=== PATIENT | female | born 1985 | race Caucasian/White ===

== ENCOUNTER 2019-04-07 07:36 | Outpatient (CLI) | payer OTHER, SELFPAY ==
--- NOTE | ~2019-04-07 | US_ITS ---
EXAMINATION: US right upper quadrant EXAM DATE: 04/07/2019 08:27 INDICATION: Right quadrant abdominal pain, nausea. TECHNIQUE: Multiple grayscale and Doppler images of the abdomen right upper quadrant were obtained (b y a technologist who performed the scan) and subsequently reviewed. There is no prior study for valery munoz. FINDINGS: The pancreatic head and body are normal in appearance. The pancreatic tail is not visualized. The l iver has normal echogenicity and contour. There are no focal liver lesions identified. There is no evidence of intrahepatic biliary duct dilation. Portal venous flow was seen in the hepatopedal, nor mal direction and has normal Doppler waveform. No right-sided hydronephrosis. Common bile duct measures 3 mm, which is normal. The gallbladder wall is normal in thickness, with ex pected amount of distention. No sonographic evidence of pericholecystic fluid. There is no cholelit hiases. Technologist performing exam reports patient did not demonstrate sonographic Ko's sign. Please note that this sign is less reliable in patients who have received pain medication. IMPRESSION: 1. Unremarkable abdominal ultrasound exam. Reviewed, dictated and finalized at location A. RIBUTION SYSTEM OPERATOR
== END 2019-04-07 07:37 ==
PROVIDERS: Visit Provider Nurse Practitioner
DX: R10.11 Right upper quadrant pain (principal)
CPT/HCPCS: 76705

== ENCOUNTER 2020-10-01 17:33 | Outpatient (CLI) | payer OTHER, SELFPAY ==
--- NOTE | ~2020-10-01 | XR_ITS ---
EXAMINATION: XR lumbar spine 2-3V DATE: 10/01/2020 17:54 INDICATION: Mid to low back pain. TECHNIQUE: 3 views of lumbar spine were obtained. COMPARISON: None. FINDINGS: There is 12 degrees levoscoliosis from T11 to L3 by the Ruby method. There is 3 mm retrolis thesis of L2 on L3 and L3 on L4. Vertebral body heights are normal. There is mildly decreased disc he ight at L1-L2, L2-L3, and L3-L4. There is multilevel mild facet joint osteoarthritis. IMPRESSION: 1. Mild lumbar spondylosis. 2. Thoracolumbar levoscoliosis. Reviewed, dictated and finalized at location A.
--- NOTE | ~2020-10-01 | XR_ITS ---
EXAMINATION: XR thoracic spine 2V DATE: 10/01/2020 17:54 INDICATION: Mid to low back pain. TECHNIQUE: 3 views of thoracic spine were obtained. COMPARISON: None. FINDINGS: There is 7 degrees levocurvature of cervicothoracic spine and 4 degrees dextrocurvature of mid thoracic spine. There is mild chronic anterior wedging of T8 vertebral body. There is mildly decr eased disc height at T8-T9 and T9-T10. IMPRESSION: 1. Mild thoracic spondylosis. Reviewed, dictated and finalized at location A.
--- NOTE | ~2020-10-01 | XR_ITS ---
EXAMINATION: XR_CERV2-3V_CR DATE: 10/01/2020 17:54 INDICATION: Neck pain. TECHNIQUE: 4 views of cervical spine were obtained. COMPARISON: None. FINDINGS: There is kyphosis and 5 degrees dextrocurvature of cervical spine. Vertebral body heights a re normal. There is mildly decreased disc height at C5-C6. The facet joints are normal. No central ca nal stenosis or prevertebral soft tissue swelling. IMPRESSION: 1. Mild cervical spondylosis. Reviewed, dictated and finalized at location A.
== END 2020-10-01 17:34 ==
PROVIDERS: Visit Provider Chiropractor
DX: M47.894 Other spondylosis, thoracic region (principal); M47.896 Other spondylosis, lumbar region; M47.892 Other spondylosis, cervical region
CPT/HCPCS: 72040; 72070; 72100

== ENCOUNTER 2022-02-10 10:00 | Outpatient (RCR) | payer OTHER, SELFPAY | END 2022-04-27 08:05 | disposition home or self-care (01) | LOC: ANHOT 10:00 | PROVIDERS: Visit Provider Family Medicine | DX: R27.8 Other lack of coordination (principal); I63.9 Cerebral infarction, unspecified | CPT/HCPCS: 99199 ==

== ENCOUNTER 2022-04-30 10:00 | Emergency (ER) | payer OTHER, SELFPAY ==
[2022-04-30 10:10] VITALS: BP 129/86; PULSE 89; RESP 14; TEMP 36.6; O2SAT 99
[2022-04-30 10:47] VITALS: BP 139/97
[2022-04-30 11:23] LABS: Basophils Absolute Auto 0.1 K/mm3 (0.0-0.1); Basophils Percent Auto 0.7 % (0.2-1.2); Eosinophils Absolute Auto 0.2 K/mm3 (0-0.3); Eosinophils Percent Auto 1.9 % (0-4.4); Hematocrit 40.2 % (37.0-47.0); Hemoglobin 12.8 g/dL (12.0-15.0); Immature Granulocyte Absolute 0.02 K/mm3 (0.00-0.031); Immature Granulocyte Percent A 0.2 % (0-0.5); Lymphocytes Absolute Auto 2.71 K/mm3 (0.9-3.2); Mean Corpuscular HGB Conc 31.8 g/dl (32-36); Mean Corpuscular Hemoglobin 26.4 pg (26-34); Mean Corpuscular Volume 83.1 fl (80-100); Mean Platelet Volume 9.4 fl (7.4-10.4); Monocytes Absolute Auto 0.5 K/mm3 (0.1-0.6); Monocytes Percent Auto 6.4 % (2.6-8.5); Neutrophils Percent Auto 58.8 % (45.5-73.1); Platelet Count Result 282 k/mm3 (150-375); Red Blood Count 4.84 M/mm3 (4.2-5.4); Red Cell Distribution Width 15.7 % (11.5-14.5); White Blood Count 8.5 K/mm3 (4.5-10.0)
[2022-04-30 11:26] LABS: Appearance Urine Clear (Clear); Bacteria Urine None Seen /hpf; Bilirubin Urine Negative (Negative); Blood Urine Trace (Negative); Color Urine Yellow (Yellow); Glucose Urine UA Negative (Negative); Ketones Urine Negative (Negative); Leukocyte Esterase Ur Negative LEU/UL (Negative); Nitrate Urine Negative (Negative); Non Pathogenic Casts 0-2; Protein Urine Negative (Negative); RBC Urine 0-2 /hpf (0-2); Specific Grav Ur 1.019 (1.001-1.035); Squamous Epithelial Cell Urine None seen /hpf (Few); Urobilinogen Urine 0.2 mg/dL (<2.0); WBC Urine 0-5 /hpf
[2022-04-30 11:32] LABS: Prothrombin Time 13.2 Seconds (11.1-14.7)
[2022-04-30 11:33] LABS: Partial Thromboplastin Time 26.5 SECONDS (22.3-36.8)
[2022-04-30 11:35] LABS: Alanine Aminotransferase 39 U/L (6-35); Albumin Level 4.3 g/dL (3.5-5.1); Alkaline Phosphatase 69 U/L (38-126); Anion Gap 5 mmol/L (8-16); Aspartate Amino Transferase 37 U/L (14-36); Bilirubin,Total 0.5 mg/dL (0.2-1.3); Blood Urea Nitrogen 15 mg/dL (7-17); Carbon Dioxide 27 mmol/L (22-30); Chloride 106 mmol/L (98-107); Estimated CRCL calculation 108 ml/min; Estimated Glomerular Filt Rate > 60; Glucose 96 mg/dL (65-110); Potassium 4.2 mmol/L (3.4-5.0); Sodium 138 mmol/L (137-145)
--- NOTE | 2022-04-30 11:38 | ED.PREGNANCY ---
HPI - General Chief complaint: Vaginal Bleeding Stated complaint: vaginal bleeding x15 days Time Seen by Provider: 04/30/22 10:45 Source: patient Mode of arrival: ambulatory Limitations: no limitations History of Present Illness HPI Narrative: Patient is a 37-year-old female who presents the ED with report of vaginal bleeding. Patient reports her menstrual cycle this month was late approximately 2 weeks. She is currently sexually active and not on control, but had negative tests at home. She started her cycle approximately 15 days ago and reports it has been intermittently very heavy bleeding with clots, particularly over the last couple of days. She states she does not normally have heavy cycles. She has not seen an DIP FILLER in several years. Patient denies any dizziness, lightheadedness, fevers, nausea, vomiting, abdominal pain, urinary symptoms. Related Data Home Medications Medication Instructions Recorded Confirmed duloxetine 20 mg capsule,delayed 20 mg PO BID 06/05/21 06/05/21 release omeprazole 40 mg capsule,delayed 40 mg PO BID 06/05/21 06/05/21 release Allergies Allergy/AdvReac Type Severity Reaction Status Date / Time No Known Allergies Allergy Verified 04/30/22 10:49 Review of Systems Review of Systems: CONSTITUTIONAL: Denies fever, chills, or sweats. CARDIOVASCULAR: Denies chest pain. RESPIRATORY: Denies dyspnea. GASTROINTESTINAL: Denies abdominal pain, nausea, vomiting, or diarrhea. GENITOURINARY: See HPI. SKIN: Denies rash or itching. MUSCULOSKELETAL: Denies back pain, joint pain, or myalgia. NEUROLOGIC: Denies dizziness, lightheadedness, headache, numbness, or weakness. All systems reviewed & are unremarkable except as noted in HPI and below PMFSH Past Medical History Medical History Anxiety Arthritis Asthma GERD (gastroesophageal reflux disease) Surgical History Surgical History No pertinent past surgical history Family History Family History Mother Hypertension Sibling Hypertension Social History Social History Smoking status: Current every day smoker Alcohol intake: current Substance use type: marijuana Exam Narrative: GENERAL: Well appearing, morbidly obese, non-toxic, in no acute distress. HEAD: Normocephalic, atraumatic. NECK: Supple. No adenopathy, no masses. RESPIRATORY: Airway patent, respirations nonlabored. Clear to auscultation bilaterally, no rales, rhonchi, wheezing. CARDIOVASCULAR: Regular rate and rhythm without murmurs, rubs, or gallops. Radial pulses 2+ and equal bilaterally. ABDOMINAL: Soft, no tenderness throughout abdomen, nondistended, no hepatosplenomegaly. Normoactive BS. PELVIC: Normal external genitalia. Very minimal amount of bleeding in vaginal vault, no clots identified. No signs of hemorrhage or pooling of blood. Cervix unremarkable, no abnormalities. No significant CMT. MUSCULOSKELETAL: Moves all extremities. Strength/ROM intact without gross deformities. SKIN: Warm, dry, normal color. No rashes. NEURO: A&O X3. Speech clear. Cranial nerves II-XII grossly intact. Steady gait. No ataxic movements. PSYCHIATRIC: Appropriate mood and affect. Normal interaction. Course Vital Signs Vital signs: Vital Signs Temperature 97.8 F 04/30/22 10:10 Pulse Rate 89 04/30/22 10:10 Respiratory Rate 14 04/30/22 10:10 Blood Pressure 129/86 04/30/22 10:10 Pulse Oximetry 99 04/30/22 10:10 Temperature 97.8 F 04/30/22 10:10 Pulse Rate 77 04/30/22 14:20 Respiratory Rate 14 04/30/22 14:20 Blood Pressure 132/81 04/30/22 14:20 Pulse Oximetry 98 04/30/22 14:20 MDM - OB/Uterine Contractions MDM Narrative Medical decision making narrative: Patient prese
[2022-04-30 11:40] LABS: Add Urine Microscopic? YES
[2022-04-30 12:09] VITALS: BP 140/87
[2022-04-30 14:20] VITALS: BP 132/81; PULSE 77; RESP 14; O2SAT 98
== END 2022-04-30 14:15 | disposition home or self-care (01) ==
PROVIDERS: Emergency Provider Physician Assistant
DX: N93.8 Other specified abnormal uterine and vaginal bleeding (principal); J45.909 Unspecified asthma, uncomplicated; M19.90 Unspecified osteoarthritis, unspecified site; K21.9 Gastro-esophageal reflux disease without esophagitis; F41.9 Anxiety disorder, unspecified; F17.200 Nicotine dependence, unspecified, uncomplicated
CPT/HCPCS: 36415; 80053; 81001; 81025; 85025; 85610; 85730; 99284

== ENCOUNTER 2022-06-12 08:10 | Emergency (ER) | payer OTHER, SELFPAY ==
--- NOTE | ~2022-06-12 | XR_ITS ---
XR hand LT min 3V 06/12/2022 08:36 INDICATION: Left hand pain PROCEDURE: 3 views left hand COMPARISON: No prior studies for comparison. FINDINGS: Fracture, dislocation or subluxation is not identified. The soft tissues appear within norm al limits. No foreign bodies are identified. IMPRESSION: 1: NO ACUTE BONE OR JOINT ABNORMALITY IDENTIFIED. Reviewed, dictated and finalized at location B.
[2022-06-12 08:17] VITALS: BP 149/98; PULSE 95; RESP 16; TEMP 36.8; O2SAT 98
--- NOTE | 2022-06-12 09:12 | ED.GENADULT ---
HPI - General Adult General Chief complaint: Extremity Injury, Upper Stated complaint: left fourth digit injury Time Seen by Provider: 06/12/22 09:03 History of Present Illness HPI narrative: 37-year-old female with a history of asthma, allergies, GERD reports for evaluation of left fourth finger pain after she hit it against a wall this morning approximately 2 hours ago. Patient reports pain over her MCP and PIP along with pain with flexion and extension. Denies lacerations, abrasions, swelling, ecchymosis Related Data Home Medications Medication Instructions Recorded Confirmed duloxetine 20 mg capsule,delayed 20 mg PO BID 06/05/21 06/05/21 release aspirin 81 mg tablet,delayed 81 mg PO 05/27/22 release atorvastatin 80 mg tablet (Lipitor) 80 mg PO DAILY 05/27/22 cyclobenzaprine 10 mg tablet 10 mg PO 05/27/22 ergocalciferol (vitamin D2) 1,250 1,250 mcg PO 05/27/22 mcg (50,000 unit) capsule lisinopril 20 mg tablet 10 mg PO DAILY 05/27/22 Allergies Allergy/AdvReac Type Severity Reaction Status Date / Time No Known Allergies Allergy Verified 06/12/22 09:14 Review of Systems Review of Systems: CONSTITUTIONAL: Denies fever, chills EYES: Denies visual changes, redness, or discharge. ENT: Denies rhinorrhea, congestion, sore throat, or otalgia. CARDIOVASCULAR: Denies chest pain, palpitations, or edema. RESPIRATORY: Denies cough or dyspnea. GASTROINTESTINAL: Denies abdominal pain, nausea, vomiting, or diarrhea. GENITOURINARY: Denies dysuria or hematuria. SKIN: Denies rash or itching. MUSCULOSKELETAL: See HPI NEUROLOGIC: Denies headache, numbness, dizziness, or weakness. PSYCHIATRIC: Denies anxiety or depression. [facility] Past Medical History Medical History Anxiety Arthritis Asthma GERD (gastroesophageal reflux disease) Hyperlipidemia Hypertension Partial traumatic amputation of great toe Stroke Surgical History Surgical History No pertinent past surgical history Family History Family History Mother Hypertension Sibling Hypertension Social History Social History Smoking status: Current every day smoker Alcohol intake: current Substance use: current Substance use type: marijuana Living arrangements: with roommate(s) Occupation/Education: occupation Gender identity (if verbalized by the patient): Female Sexual Orientation (if Verbalized by the Patient): Straight or Heterosexual Exam Narrative: GENERAL: Well-appearing, well-nourished, and in no acute distress. Patient resting comfortably in exam bed. She is pleasant and conversational. HEAD: Normocephalic, atraumatic. ENT: Nares clear, no rhinorrhea or epistaxis. NECK: Supple. CHEST: Clear to auscultation. No respiratory distress. No wheezes rales or rhonchi HEART: Regular rate and rhythm. No murmur heard. Normal peripheral pulses. EXTREMITIES: Tenderness over the left fourth MCP and PIP. No ecchymosis or overlying skin changes. No edema. Full flexion and extension appreciated. Cap refill less than 2. Radial pulse 2+. Sensation intact. SKIN: Warm, dry, no rash. NEURO: No focal deficits. Alert and oriented x3. PSYCH: Normal mood and affect. Course Vital Signs Vital signs: Vital Signs Temperature 98.3 F 06/12/22 08:17 Pulse Rate 95 06/12/22 08:17 Respiratory Rate 16 06/12/22 08:17 Blood Pressure 149/98 H 06/12/22 08:17 Pulse Oximetry 98 06/12/22 08:17 Oxygen Delivery Room Air 06/12/22 08:17 Temperature 98.3 F 06/12/22 08:17 Pulse Rate 78 06/12/22 09:13 Respiratory Rate 15 06/12/22 09:13 Blood Pressure 127/89 06/12/22 09:13 Pulse Oximetry 98 06/12/22 09:13 Oxygen Delivery Room Air 06/12/22 08:17 Medical Decision Making MDM Narrative M
[2022-06-12 09:13] VITALS: BP 127/89; PULSE 78; RESP 15; O2SAT 98
[2022-06-12] MEDS: ACETAMINOPHEN 500 MG TABLET 1000 MG PO (09:17)
[2022-06-12] MEDS: IBUPROFEN 600 MG TABLET PO (09:17)
== END 2022-06-12 09:42 | disposition home or self-care (01) ==
PROVIDERS: Emergency Provider Physician Assistant
DX: M79.645 Pain in left finger(s) (principal); I10 Essential (primary) hypertension; K21.9 Gastro-esophageal reflux disease without esophagitis; F41.9 Anxiety disorder, unspecified; J45.909 Unspecified asthma, uncomplicated; E78.5 Hyperlipidemia, unspecified; M19.90 Unspecified osteoarthritis, unspecified site; Z89.419 Acquired absence of unspecified great toe; Z86.73 Personal history of transient ischemic attack (TIA), and cerebral infarction without residual deficits
CPT/HCPCS: 29130; 73130; 99283; A9270

== ENCOUNTER 2022-07-08 17:00 | Outpatient (CLI) | payer OTHER, SELFPAY ==
[2022-07-08 17:32] LABS: Hematocrit 37.6 % (37.0-47.0); Hemoglobin 11.9 g/dL (12.0-15.0)
[2022-07-14 08:48] LABS: Anti Cardio Antibody IgM <2.0 MPL-U/mL (<20.0); Anti Cardiolipin Antibody IgA <2.0 APL-U/mL (<20.0); Anti Cardiolipin Antibody IgG <2.0 GPL-U/mL (<20.0)
== END 2022-07-08 17:01 | disposition home or self-care (01) ==
LOC: ANHLAB 17:02
PROVIDERS: Visit Provider Student in an Organized Health Care Education/Training Program
DX: I63.9 Cerebral infarction, unspecified (principal); N93.9 Abnormal uterine and vaginal bleeding, unspecified
CPT/HCPCS: 36415; 85014; 85018; 86146; 86147

== ENCOUNTER 2022-07-10 03:10 | Day surgery (SDC) | payer OTHER, SELFPAY ==
[2022-07-01 11:17] VITALS: BMI 41.6
--- NOTE | 2022-07-01 11:24 | PC.NURSE ---
Report to the Outpatient Waiting Room, entrance under the green pavilion located off [facility], at time 12:00 on date 07/10/22. Planned Procedure Time: 2:00. Time changes happen often and if your time is changed the preop area will call you the afternoon before. - You and your visitor will be asked to self-screen and do not enter if you have any COVID symptoms. - A mask is optional within the hospital at this time. Patients may have clear liquids (water, carbonated beverages, clear teas, apple juice) until 3 hours prior to surgery (11:00) with a maximum of 20 ounces. - No food from midnight until time of surgery Take the following medications with a SIP of water the morning of surgery: DULOXETINE, CYCLOBENZAPRINE IF NEEDED DO NOT STOP ANY OF YOUR OTHER PRESCRIPTION MEDICATIONS PRIOR TO SURGERY EXCEPT THE FOLLOWING Medications to discontinue per physician: N/A Date to take last dose: N/A (PT NOT CURRENTLY TAKING ASPIRIN) Please no make-up, nail wolof, hairspray, perfume, deodorant, or body powder the day of surgery. No jewelry (including any body piercings) or valuables the day of surgery, leave them at home. Please take a shower or bath the night before, or the morning of, surgery with an antibacterial soap. Wear comfortable, loose fitting clothing. - Jewelry must be removed prior to entering the operating room. Rings and piercings that are not removed may be cut off. - The hospital will not accept responsibility for valuables. - Please leave all valuables, including medications, at home the day of surgery. If you are going home after surgery, a licensed commercial front load driver must drive you home. - NO public transportation without another adult if you receive anesthesia. - We recommend that an adult stay with you for 24 hours following discharge. - We also recommend that you do not drive, make important decision, drink alcoholic beverages, or take any drugs that were not prescribed by your health care provider for at least 24 hours after your discharge time. Follow any additional instructions given to you from your surgeon. If you or anyone in your household have experienced Covid symptoms in the past week, please notify your surgeon or the nurse liaison at the phone number below for possible testing. Telephone instructions given to PT - ROYAL ABRAHAM and asked if any additional questions and then verbalized understanding. Patient advised to call surgeon office or pre surgery nurse liaison [phone] if any additional questions.
--- NOTE | 2022-07-10 08:17 | PM.IMHP ---
H&P: HPI History of Present Illness Date/Time: 07/10/22 08:17 Chief Complaint: abnormal uterine bleeding Narrative: 37-year-old female who presents for hysteroscopy, D&C for abnormal uterine bleeding.? patient had been complaining of heavy, painful menses.? Patient had pelvic ultrasound performed after that cycle.? Ultrasound still showed thickened endometrium that was irregular in appearance. PMFSH Past Medical History Medical History Anxiety Arthritis Asthma GERD (gastroesophageal reflux disease) Hyperlipidemia Hypertension Partial traumatic amputation of great toe Stroke Surgical History Surgical History No pertinent past surgical history Family History Family History Mother Hypertension Sibling Hypertension Social History Social History Smoking packs per day: 1 Smoking cigarettes per day: 20.0 Years smoked: 20 Smoking pack-years: 20.00 Smoking status: Current every day smoker Tobacco type: cigarettes Alcohol intake: current Alcohol use details: RARE Substance use: current Substance use type: marijuana Living arrangements: with friend(s) Additional living arrangements comments: BOYFRIEND AND ROOMMATE Occupation/Education: occupation Gender identity (if verbalized by the patient): Female Sexual Orientation (if Verbalized by the Patient): Straight or Heterosexual Spiritual care concerns: No Meds Home Medications and Allergies Home Medications Medication Instructions Recorded Confirmed Type duloxetine 20 mg capsule,delayed 20 mg PO DAILY 06/05/21 07/01/22 History release aspirin 81 mg tablet,delayed 81 mg PO DAILY 05/27/22 07/01/22 History release atorvastatin 80 mg tablet (Lipitor) 80 mg PO DAILY 05/27/22 07/01/22 History cyclobenzaprine 10 mg tablet 10 mg PO PRN 05/27/22 07/01/22 History lisinopril 20 mg tablet 10 mg PO DAILY 05/27/22 07/01/22 History famotidine 20 mg tablet 20 mg PO DAILY 07/01/22 07/01/22 History loratadine 10 mg tablet (Claritin) 10 mg PO DAILY 07/01/22 07/01/22 History Allergies Allergy/AdvReac Type Severity Reaction Status Date / Time No Known Allergies Allergy Verified 07/01/22 11:15 Assessment and Plan Assessment and plan (1) Abnormal uterine bleeding (AUB): Code(s): N93.9 - Abnormal uterine and vaginal bleeding, unspecified Status: Acute Assessment and Plan: 37-year-old female here hysteroscopy D&C for AUB Patient was having heavy prolonged bleeding.? Patient's bleeding was also irregular in timing Patient has been having these symptoms since December Patient had pelvic ultrasound which showed a thickened and irregular endometrial lining Patient declined hormonal contraceptives Recommended tissue sampling Risks, benefits, alternatives discussed Patient consented to proceed with hysteroscopy, D&C for abnormal uterine bleeding.
--- NOTE | 2022-07-10 08:18 | WPDHPUPDATE1 ---
History and Physical Update Update Date/Time: 07/10/22 08:18 History and Physical has been reviewed, including an updated exam of the patient. There are NO changes in the patient's condition. Risks, benefits, and alternatives have been discussed and questions answered. Patient agrees to proceed with procedure.
[2022-07-10 12:25] VITALS: BP 117/84; PULSE 81; RESP 16; TEMP 36.5; O2SAT 98
--- NOTE | 2022-07-10 12:28 | WPDANESEPPF ---
Anes - Initial Pre Proc Eval Procedure: Operation Date: 07/10/22 14:00 Proposed Procedures p Hysteroscopy Dilation and Curettage - Moses Jeffrey MD Date/Time: 07/10/22 12:28 Surgeon: Moses Jeffrey MD Pre Op Diagnosis: abnormal uterine bleeding Patient Data Age: 37 Gender: F Height: 1.65 m Weight: 112.1 kg Last Vital Signs Temp 36.5 C 07/10/22 12:25 Pulse 81 07/10/22 12:25 Resp 16 07/10/22 12:25 BP 117/84 07/10/22 12:25 Pulse Ox 98 07/10/22 12:25 O2 Del Method Room Air 07/10/22 12:25 Allergies Allergy/AdvReac Type Severity Reaction Status Date / Time No Known Allergies Allergy Verified 07/10/22 12:11 Home Medications Medication Instructions Recorded Confirmed Type duloxetine 20 mg capsule,delayed 20 mg PO DAILY 06/05/21 07/01/22 History release aspirin 81 mg tablet,delayed 81 mg PO DAILY 05/27/22 07/01/22 History release atorvastatin 80 mg tablet (Lipitor) 80 mg PO DAILY 05/27/22 07/01/22 History cyclobenzaprine 10 mg tablet 10 mg PO PRN 05/27/22 07/01/22 History lisinopril 20 mg tablet 10 mg PO DAILY 05/27/22 07/01/22 History famotidine 20 mg tablet 20 mg PO DAILY 07/01/22 07/01/22 History loratadine 10 mg tablet (Claritin) 10 mg PO DAILY 07/01/22 07/01/22 History Patient hx anesthesia problems: none Family hx anesthesia problems: none Results Review: All pre-operative results and documents have been reviewed as part of the pre-operative evaluation. [facility] Past Medical History Medical History Anxiety Arthritis Asthma GERD (gastroesophageal reflux disease) Hyperlipidemia Hypertension Partial traumatic amputation of great toe Stroke Surgical History Surgical History No pertinent past surgical history Family History Family History Mother Hypertension Sibling Hypertension Social History Social History Smoking packs per day: 1 Smoking cigarettes per day: 20.0 Years smoked: 20 Smoking pack-years: 20.00 Smoking status: Current every day smoker Tobacco type: cigarettes Alcohol intake: current Alcohol use details: RARE Substance use: current Substance use type: marijuana Living arrangements: with friend(s) Additional living arrangements comments: BOYFRIEND AND ROOMMATE Occupation/Education: occupation Gender identity (if verbalized by the patient): Female Sexual Orientation (if Verbalized by the Patient): Straight or Heterosexual Spiritual care concerns: No Anes - Eval Final PreProcedure Day of Procedure 07/10/22 12:28 Patient weight: morbidly obese Heart: regular rate and rhythm Lungs: clear to auscultation Airway: Mallampati scale class II Neurological: alert and oriented Last oral intake: >/= 8 hours ASA classification: III Emergent: no Anesthetic plan: proceed Anesthesia type and monitoring: general GIVS and standard monitoring Results Review: All pre-operative results and documents have been reviewed as part of the pre-operative evaluation. Informed Consent: The patient's anesthetic plan and its attendant risks and benefits were discussed with the patient/family/POA. Questions were solicited and answers provided to the satisfaction of the patient/family/POA.
[2022-07-10] MEDS: LIDOCAINE HCL 1% LOCAL INJ 20 ML VIAL 10 ML INFILTRATE (14:11)
--- NOTE | 2022-07-10 14:17 | W.PM.PROC2 ---
Procedure Note - Detailed Date of Procedure 07/10/22 Pre-op Diagnosis abnormal uterine bleeding Post-op Diagnosis Same Procedure Performed hysteroscopy, D&C Surgeon Moses Jeffrey MD Anesthesia General Indications abnormal uterine bleeding Findings endometrial polyp in the intrauterine cavity from the left anterior fundal portion of the endometrium. Normal tubal ostia bilaterally Description of Procedure Guerita Mckeon presents for hysterosccopy D&C for AUB. She was counseled as to the indications, risks, benefits, and alternatives to surgery, with the risks including bleeding, infection, damage to surrounding organs, VTE, and complications of anesthesia. Her verbal and written consent was obtained. PROCEDURE: The patient was taken to the OR and general anesthesia induced. She was prepped and draped in Sukumar stirrups with support of the back and bilateral lower extremities. I/O catheterization performed of the bladder. The above findings were noted. Infiltration with 1% lidocaine at the 3 and 9 o'clock cervical positions was performed. A single tooth tenaculum was placed on the anterior lip of the cervix. The cervix was dilated with sequential Fara dilators. Hysteroscopy, using a normal saline medium, was performed and showed the above findings. The operative hysteroscope was used for tissue resection of the uterine polyp. Sharp uterine curettage was then performed and tissue placed on Telfa. The tenaculum was removed and hemostasis was observed. The patient tolerated the procedure well. Sponge, lap, and needle counts were correct. The patient was taken to the recovery room in stable condition. Estimated Blood Loss 5 Urine Output 80 Drains No Packing No Pathology Yes (endometrial curettings ) Complications No immediate complications Condition Stable Disposition PACU [facility] Billing Surgery - Charge Forward: Surgery Billing
[2022-07-10 14:21] VITALS: BP 143/87; PULSE 71; RESP 14; O2SAT 98
[2022-07-10] MEDS: LACTATED RINGERS 1,000 ML 30 ML IV CONT (14:21)
[2022-07-10 14:45] VITALS: BP 150/85; PULSE 68; RESP 15; O2SAT 98
== END 2022-07-10 15:30 | disposition home or self-care (01) ==
PROVIDERS: Visit Provider Student in an Organized Health Care Education/Training Program
PROC: 0U5B8ZZ Destruction of Endometrium, Via Natural or Artificial Opening Endoscopic (ICD-10-PCS; CPT 58563; principal; 2022-07-10 14:00)
DX: N93.9 Abnormal uterine and vaginal bleeding, unspecified (principal); N84.0 Polyp of corpus uteri; I10 Essential (primary) hypertension; E78.5 Hyperlipidemia, unspecified; K21.9 Gastro-esophageal reflux disease without esophagitis; F41.9 Anxiety disorder, unspecified; Z86.73 Personal history of transient ischemic attack (TIA), and cerebral infarction without residual deficits; F17.210 Nicotine dependence, cigarettes, uncomplicated; F12.90 Cannabis use, unspecified, uncomplicated; Z79.82 Long term (current) use of aspirin; E66.01 Morbid (severe) obesity due to excess calories; Z68.41 Body mass index [BMI] 40.0-44.9, adult
CPT/HCPCS: 58558; 88305; J2250; J2704; J3010; J7120

== ENCOUNTER 2022-07-21 08:18 | Emergency (ER) | payer OTHER, SELFPAY ==
--- NOTE | ~2022-07-21 | XR_ITS ---
EXAMINATION: XR knee RT min 4V DATE: 07/21/2022 08:48 INDICATION: Right knee injury. TECHNIQUE: 4 views of right knee were obtained. COMPARISON: None. FINDINGS: Bone alignment is normal. No fracture. There is mild osteoarthritis of patellofemoral juan jose rtment characterized by tiny osteophytes. No knee joint effusion. IMPRESSION: 1. Mild right knee osteoarthritis. Reviewed, dictated and finalized at location A.
[2022-07-21 08:24] VITALS: BP 136/94; PULSE 98; RESP 16; O2SAT 99
--- NOTE | 2022-07-21 09:38 | ED.LOWEXIN ---
HPI - Extremity Injury (Lower) General Chief Complaint: Extremity Injury, Lower Stated Complaint: knee pain Time Seen by Provider: 07/21/22 08:41 Source: patient Mode of arrival: ambulatory Limitations: no limitations History of Present Illness HPI Narrative: 37-year-old with a history of hypertension, hyperlipidemia here with complaints of right knee pain that started few days ago. Patient states that she was trying to get out of the couch felt a pain on the anterior aspect of the knee and ever since then she has been having problems climbing the steps of going down the steps. complaint: knee injury Onset (ago): day(s) (4) Relieving factors: rest Exacerbating factors: movement Other symptoms: none Related Data Home Medications Medication Instructions Recorded Confirmed duloxetine 20 mg capsule,delayed 20 mg PO DAILY 06/05/21 07/01/22 release aspirin 81 mg tablet,delayed 81 mg PO DAILY 05/27/22 07/01/22 release atorvastatin 80 mg tablet (Lipitor) 80 mg PO DAILY 05/27/22 07/01/22 cyclobenzaprine 10 mg tablet 10 mg PO PRN 05/27/22 07/01/22 lisinopril 20 mg tablet 10 mg PO DAILY 05/27/22 07/01/22 famotidine 20 mg tablet 20 mg PO DAILY 07/01/22 07/01/22 loratadine 10 mg tablet (Claritin) 10 mg PO DAILY 07/01/22 07/01/22 Allergies Allergy/AdvReac Type Severity Reaction Status Date / Time No Known Allergies Allergy Verified 07/10/22 12:11 Review of Systems Review of Systems: All systems reviewed & are unremarkable except as noted in HPI and below Constitutional: Constitutional: Reports no additional constitutional complaints Eyes: Eyes: Reports no additional eye complaints ENT: Reports system reviewed and no additional complaints, except as documented Cardiovascular: Cardiovascular: Reports no additional cardiovascular complaints Respiratory: Respiratory: Reports no additional respiratory complaints Musculoskeletal: Musculoskeletal: Reports as per HPI [facility] Past Medical History Medical History Anxiety Arthritis Asthma GERD (gastroesophageal reflux disease) Hyperlipidemia Hypertension Partial traumatic amputation of great toe Stroke Surgical History Surgical History History of hysteroscopy (07/13/22) Hscope D&C / polypectomy Benign No pertinent past surgical history Family History Family History Mother Hypertension Sibling Hypertension Social History Social History Smoking packs per day: 1 Smoking cigarettes per day: 20.0 Years smoked: 20 Smoking pack-years: 20.00 Smoking status: Current every day smoker Tobacco type: cigarettes Alcohol intake: current Alcohol use details: RARE Substance use: current Substance use type: marijuana Living arrangements: with friend(s) Additional living arrangements comments: BOYFRIEND AND ROOMMATE Occupation/Education: occupation Gender identity (if verbalized by the patient): Female Sexual Orientation (if Verbalized by the Patient): Straight or Heterosexual Spiritual care concerns: No Exam Narrative: GENERAL: Well-appearing, well-nourished, and in no acute distress. HEAD: Normocephalic, atraumatic. EYES: PERRLA and EOMI. NECK: Supple. CHEST: Clear to auscultation. No respiratory distress. HEART: Regular rate and rhythm. No murmur heard. Normal peripheral pulses. EXTREMITIES: Normal range of motion. No edema. Examination of the right knee shows no joint effusion. no deformity SKIN: Warm, dry, no rash. NEURO: No focal deficits. Alert and oriented x3. PSYCH: Normal mood and affect. Course Course Emergency Course: Inform patient about her x-ray findings. Advised her to Federico wrap and take pain medications as prescribed Vital Signs Vital signs: Vital Signs Pulse Rate 98 07/21/22 08:24 Re
--- NOTE | 2022-07-21 09:56 | PC.NURSE ---
PT left without recieving paper work or ahsan wrap.
== END 2022-07-21 09:58 | disposition home or self-care (01) ==
PROVIDERS: Emergency Provider Family Medicine
DX: J45.909 Unspecified asthma, uncomplicated (principal); E78.5 Hyperlipidemia, unspecified; I10 Essential (primary) hypertension; K21.9 Gastro-esophageal reflux disease without esophagitis; M19.90 Unspecified osteoarthritis, unspecified site; F17.210 Nicotine dependence, cigarettes, uncomplicated; Z89.419 Acquired absence of unspecified great toe; Z86.73 Personal history of transient ischemic attack (TIA), and cerebral infarction without residual deficits; Z79.82 Long term (current) use of aspirin; M17.11 Unilateral primary osteoarthritis, right knee
CPT/HCPCS: 73564; 99283

== ENCOUNTER 2022-08-17 14:55 | Outpatient (CLI) | payer OTHER, SELFPAY ==
--- NOTE | ~2022-08-17 | XR_ITS ---
EXAMINATION: XR chest 2V Exam Date/Time: 08/17/2022 15:08 CDT HISTORY: LOWER RESPIRATORY INFECTION X 1WEEK Comparison: None. RESULT: Lines, tubes, and devices: None. Lungs and pleura: Clear. Cardiomediastinal silhouette: Normal. Other: No acute osseous or upper abdominal finding. IMPRESSION: No acute cardiopulmonary process. Reviewed, dictated and finalized at location K.
== END 2022-08-17 14:56 | disposition home or self-care (01) ==
DX: J22 Unspecified acute lower respiratory infection (principal)
CPT/HCPCS: 71046

== ENCOUNTER 2023-03-19 16:20 | Outpatient (CLI) | payer OTHER, SELFPAY ==
[2023-03-20 08:51] LABS: Thyroid Stimulating Hormone Reflex 0.795 uIU/mL (0.465-4.68)
[2023-03-23 11:50] LABS: Testosterone Total 15 ng/dL (2-45)
[2023-03-24 07:22] LABS: FSH 15.3 mIU/mL (***); LH 7.4 mIU/mL (***); Progesterone <0.2 ng/mL (***)
[2023-03-24 21:27] LABS: Estradiol, Ultrasensitive 88 pg/mL
== END 2023-03-19 16:21 | disposition home or self-care (01) ==
LOC: ANHLAB 16:21
PROVIDERS: Visit Provider Student in an Organized Health Care Education/Training Program
DX: N91.2 Amenorrhea, unspecified (principal)
CPT/HCPCS: 36415; 82670; 83001; 83002; 84144; 84403; 84443

== ENCOUNTER 2023-03-26 10:18 | Inpatient (IN) | payer OTHER, SELFPAY ==
[2023-03-26] VITALS (9 sets, daily range): BP systolic 104–153; BP diastolic 51–91; PULSE 71–99; RESP 14–22; TEMP 35.7–36.4; O2SAT 96–100; BMI 41.1
--- NOTE | ~2023-03-26 | US_ITS ---
EXAMINATION: US abdomen complete DATE: 03/28/2023 14:21 INDICATION: Elevated Lipase/LFT's/ABD pain TECHNIQUE: Multiple grayscale and Doppler ultrasound images of the abdomen were obtained. COMPARISON: CT abdomen pelvis 03/26/2023; ultrasound right upper quadrant 04/07/2019. FINDINGS: Pancreas not well visualized. The liver is normal with normal echogenicity and echotexture. No surface nodularity. Normal hepatopetal flow in the main portal vein. 4 mm gallbladder wall, no st ones or sludge. No pericholecystic fluid. The common bile duct measures 4 mm. There was no sonographi c Ko sign. The visualized portions of the aorta and inferior vena cava are normal. The right kidney measures 10.3 x 5.5 x 5.4 cm. The left kidney measures 11.3 x 5.0 x 5.2 cm. The kidn eys demonstrate normal parenchymal echogenicity. There is no hydronephrosis. The spleen is normal in appearance and measures 11.1 cm. IMPRESSION: Pancreas not well visualized. Nonspecific gallbladder wall thickening. Otherwise normal abdominal ult rasound findings. Reviewed, dictated and finalized at location K. [employer] IMPRESSION: Pancreas not well visualized. Nonspecific gallbladder wall thickening. Otherwis e normal abdominal ultrasound findings.
--- NOTE | ~2023-03-26 | CT_ITS ---
CT of the Abdomen and Pelvis: Indication: Abdominal pain Technique: 2.5 mm axial scans were obtained through the abdomen and pelvis following intravenous adm inistration of 100 cc of Omnipaque 350. Dose reduction technique was used on this scan by utilizing a utomated exposure control and iterative reconstruction technique. The dose-length product (DLP) was 1 413.18 mGy-cm. Findings: Scans through the lung bases are unremarkable. The liver, spleen, gallbladder, adrenals and kidneys are within normal limits. There is peripancreati c inflammatory change, particularly the pancreatic tail, compatible with acute hepatitis. No distinct evidence of necrotic change or pseudocyst. No evidence of aortic aneurysm. No lymphadenopathy. No bowel obstruction or bowel wall thickening. There is no evidence to suggest acute appendicitis. Images through the pelvis were performed. Urinary bladder unremarkable. There is a probable 5.8 cm le ft ovarian cyst. 2.3 cm right ovarian cyst present. Impression: Acute pancreatitis, as detailed above. 5.8 cm left ovarian cyst, and 2.3 cm right ovarian cyst. Consider follow-up ultrasound as indicated. Reviewed, dictated and finalized at [facility]. E [facility]OPPER Impression: Acute pancreatitis, as detailed above. 5.8 cm left ovarian cyst, and 2.3 cm right ovarian cyst. Consider follow-up ult rasound as indicated.
--- NOTE | 2023-03-26 10:31 | ED.ABDPAIN ---
HPI - Abdominal Pain General Chief Complaint: Abdominal Pain Stated Complaint: abdominal pain Time Seen by Provider: 03/26/23 10:19 Source: patient Mode of arrival: ambulatory Limitations: no limitations History of Present Illness HPI narrative: Deysi is a 38-year-old female patient presenting to the clinic today with complaints of left upper quadrant abdominal pain that started last night. She reports the pain started after she was eating. Also having pain her taking deep breaths the left upper quadrant. Rates pain 3/10 when lying flat but when moving and taking deep breaths it is about a 7 or an 8. Last bowel movement was this morning was normal for the patient. Denies any blood in her stool. Last menstrual period was March 19. History of GERD. Takes famotidine daily. Denies any fever, chills, body aches, or URI symptoms. Denies any UTI symptoms. Also has history of hypertension and hyperlipidemia Related Data Home Medications Medication Instructions Recorded Confirmed duloxetine 20 mg capsule,delayed 20 mg PO DAILY 06/05/21 03/16/23 release aspirin 81 mg tablet,delayed 81 mg PO DAILY 05/27/22 03/16/23 release atorvastatin 80 mg tablet (Lipitor) 80 mg PO DAILY 05/27/22 03/16/23 cyclobenzaprine 10 mg tablet 10 mg PO PRN 05/27/22 03/16/23 lisinopril 20 mg tablet 10 mg PO DAILY 05/27/22 03/16/23 famotidine 20 mg tablet 20 mg PO DAILY 07/01/22 03/16/23 loratadine 10 mg tablet (Claritin) 10 mg PO DAILY 07/01/22 03/16/23 Allergies Allergy/AdvReac Type Severity Reaction Status Date / Time No Known Allergies Allergy Verified 03/26/23 10:26 Review of Systems Review of Systems: Pertinent positives per HPI. Patient denies any fever, chills, rash, headache, visual changes, dizziness, cough, runny nose, sore throat, shortness of breath, chest pain, palpitations, vomiting, diarrhea, constipation, or any urinary issues. [facility] Past Medical History Medical History Anxiety Arthritis Asthma GERD (gastroesophageal reflux disease) Hyperlipidemia Hypertension Partial traumatic amputation of great toe Stroke Surgical History Surgical History History of hysteroscopy (07/13/22) Hscope D&C / polypectomy Benign No pertinent past surgical history Family History Family History Mother Hypertension Sibling Hypertension Social History Social History Smoking packs per day: 1 Smoking cigarettes per day: 20.0 Years smoked: 20 Smoking pack-years: 20.00 Smoking status: Current every day smoker Tobacco type: cigarettes Alcohol intake: current Alcohol use details: RARE Substance use: current Substance use type: marijuana Lack of Transportation: No Lack of Food: Never True Current Housing: I Have Housing Concerned About Future Housing: No Difficulty Paying Gas/Electric Bills: Decline to Answer Difficulty Paying for Meds: No Currently Unemployed: No Education: High School Diploma/GED Difficulty w/ Childcare or Family Care: No Living arrangements: with friend(s) Additional living arrangements comments: BOYFRIEND AND ROOMMATE Occupation/Education: occupation Gender identity (if verbalized by the patient): Female Sexual Orientation (if Verbalized by the Patient): Straight or Heterosexual Spiritual care concerns: No Comments At the time of my signature, I reviewed and agree with the nursing past medical, surgical, social, and family history. There is no relevant family history pertinent to the patient complaint. Exam Narrative: General: Well-developed, obese, in no apparent distress. Head: Normocephalic, atraumatic. Cardio: Regular rate and rhythm, s1 and s2 normal, no murmur appreciated. Resp: Clear to auscultation bilaterally, no
[2023-03-26 10:43] LABS: Basophils Absolute Auto 0.1 K/mm3 (0.0-0.1); Basophils Percent Auto 0.5 % (0.2-1.2); Eosinophils Absolute Auto 0.1 K/mm3 (0-0.3); Hematocrit 43.8 % (37.0-47.0); Hemoglobin 14.2 g/dL (12.0-15.0); Immature Granulocyte Absolute 0.05 K/mm3 (0.00-0.031); Immature Granulocyte Percent A 0.4 % (0-0.5); Lymphocytes Absolute Auto 2.85 K/mm3 (0.9-3.2); Lymphocytes Percent Auto 22.6 % (18.3-44.2); Mean Corpuscular HGB Conc 32.4 g/dl (32-36); Mean Corpuscular Volume 89.4 fl (80-100); Mean Platelet Volume 9.8 fl (7.4-10.4); Monocytes Absolute Auto 0.7 K/mm3 (0.1-0.6); Monocytes Percent Auto 5.2 % (2.6-8.5); Neutrophils Absolute Auto 8.9 K/mm3 (1.3-6.7); Neutrophils Percent Auto 70.3 % (45.5-73.1); Platelet Count Result 263 k/mm3 (150-375); Red Cell Distribution Width 13.8 % (11.5-14.5); White Blood Count 12.6 K/mm3 (4.5-10.0)
[2023-03-26] MEDS: SODIUM CHLORIDE 0.9% IV 1,000 ML 999 ML IV CONT (10:45)
[2023-03-26] MEDS: ONDANSETRON INJ 4 MG/2 ML VIAL IV PUSH ×2 (10:46→12:48)
[2023-03-26 11:00] LABS: Appearance Urine Cloudy (Clear); Bacteria Urine None Seen /hpf; Bilirubin Urine Negative (Negative); Blood Urine Negative (Negative); Color Urine Yellow (Yellow); Glucose Urine UA Trace mg/dL (Negative); Ketones Urine Negative (Negative); Leukocyte Esterase Ur Negative LEU/UL (Negative); Nitrate Urine Negative (Negative); Non Pathogenic Casts 0-2; Protein Urine Negative (Negative); Specific Grav Ur 1.025 (1.001-1.035); Squamous Epithelial Cell Urine Occasional /hpf (Few); WBC Urine 0-5 /hpf; pH Urine 5.5 (5.0-9.0)
[2023-03-26 11:01] LABS: Alanine Aminotransferase 31 U/L (6-35); Albumin Level 3.9 g/dL (3.5-5.1); Alkaline Phosphatase 72 U/L (38-126); Anion Gap 5 mmol/L (8-16); Aspartate Amino Transferase 31 U/L (14-36); Bilirubin,Total 0.4 mg/dL (0.2-1.3); Blood Urea Nitrogen 18 mg/dL (7-17); Calcium 8.8 mg/dL (8.4-10.2); Carbon Dioxide 26 mmol/L (22-30); Chloride 105 mmol/L (98-107); Estimated CRCL calculation 108 ml/min; Estimated Glomerular Filt Rate > 60; Glucose 154 mg/dL (65-110); Potassium 3.8 mmol/L (3.4-5.0); Sodium 136 mmol/L (137-145)
[2023-03-26 11:01] LABS: Add Urine Microscopic? YES
[2023-03-26 11:11] LABS: Lipase 2818 U/L (23-300)
[2023-03-26] MEDS: HYDROmorphone HCL INJ (*CRX) 1 MG/ML SYR 0.5 MG IV PUSH ×3 (12:49→20:16)
[2023-03-26 13:27] LABS: Cholesterol 125 mg/dL (0-200); HDL Direct 34 mg/dL; Triglycerides 142 mg/dL (<150)
[2023-03-26 13:38] LABS: LDL Cholesterol Direct 78 mg/dL
--- NOTE | 2023-03-26 14:17 | PM.IMHP ---
H&P: HPI History of Present Illness Date/Time: 03/26/23 14:10 Chief Complaint: Abdominal pain. Narrative: This is a 38-year-old female smoker with history of stroke, hypertension, hyperlipidemia, depression, and anxiety who presented to the emergency department for evaluation of abdominal pain. The patient provides the following history. She had fast food for dinner last night and several hours thereafter she developed discomfort in her left side. It was not significant she was able to sleep okay. When she got up this morning she was having sharp and stabbing pain in the left upper quadrant radiating somewhat through to the back associated with mild nausea and feelings of being full. The pain is worse with palpation, movement, and deep inspiration. She has never had similar symptoms. No history of pancreatitis, peptic ulcers, gallbladder disease, or kidney stones. Preliminary workup in the emergency department was consistent with acute pancreatitis and she is being admitted in this setting. She denies alcohol abuse, hypertriglyceridemia, and family history of pancreatitis. No known history of gallstones. Review of Systems Review of Systems: Twelve systems were reviewed and are negative except for as per HPI. [facility] Past Medical History Medical History (Updated 03/26/23 @ 21:48 by Stephanie Cary PA-C) Arthritis Asthma Depression with anxiety Gastroesophageal reflux disease Hyperlipidemia Hypertension Partial traumatic amputation of great toe Psoriasis Stroke (12/2021) Surgical History Surgical History (Updated 03/26/23 @ 14:20 by Stephanie Cary PA-C) History of hysteroscopy (06/2022) D&C and benign polypectomy. History of tonsillectomy and adenoidectomy Family History Family History Mother Hypertension Sibling Hypertension Social History Social History (Updated 03/26/23 @ 14:20 by Stephanie Cary PA-C) Social History: Surrogate medical decision maker: Sasha Ngo, mother. Code status: Full code. Smoking packs per day: 1 Smoking cigarettes per day: 20.0 Years smoked: 20 Smoking pack-years: 20.00 Smoking status: Current every day smoker Alcohol intake: current Alcohol use details: Rare alcohol use in moderation. Substance use: current Substance use type: marijuana Do You Feel Safe in your Home?: Yes Lack of Transportation: No Lack of Food: Never True Current Housing: I Have Housing Concerned About Future Housing: No Difficulty Paying Gas/Electric Bills: Decline to Answer Difficulty Paying for Meds: No Currently Unemployed: No Education: High School Diploma/GED Difficulty w/ Childcare or Family Care: No Living arrangements: with friend(s) Additional living arrangements comments: Lives with significant other. Occupation/Education: occupation Additional occupation/education comments: [email or web address]. Spiritual care concerns: No Meds Home Medications and Allergies Home Medications Medication Instructions Recorded Confirmed Type duloxetine 20 mg capsule,delayed 20 mg PO DAILY 06/05/21 03/26/23 History release aspirin 81 mg tablet,delayed 81 mg PO DAILY 05/27/22 03/26/23 History release atorvastatin 80 mg tablet (Lipitor) 80 mg PO DAILY 05/27/22 03/26/23 History cyclobenzaprine 10 mg tablet 10 mg PO PRN PRN Tension Headache 05/27/22 03/26/23 History lisinopril 20 mg tablet 10 mg PO DAILY 05/27/22 03/26/23 History famotidine 20 mg tablet 20 mg PO DAILY 07/01/22 03/26/23 History loratadine 10 mg tablet (Claritin) 10 mg PO DAILY 07/01/22 03/26/23 History Allergies Allergy/AdvReac Type Severity Reaction Status Date / Time No Known Allergies Allergy Verified 03/26/23 10:26 Vital Signs Vital Signs - 24 hr 03/26/23 10:21 03/26/23 10:35 03/26/23 10:49 Temperature 97.6 F Pulse Rate 99 79 81 Respiratory Rate 18 17 14 Blood Pressure 153/91 H 136/87 127/74
[2023-03-26] MEDS: SODIUM CHLORIDE 0.9% IV 1,000 ML 125 ML IV CONT (14:44)
--- NOTE | 2023-03-26 14:48 | ADMGEN ---
This patient, Guerita Mckeon, was admitted to 3 [facility] Surg Room 319-01. Patient/family oriented to hospital policies and general routines including ID bracelet, bed and alarms, visiting hours, pain management, procedures, bathroom and other care routines, personal items, smoking policy, room service/diet, and visiting hours. Information on how to activate the Rapid Response Team has been discussed. Patient/Family are encouraged to report perceived risks to care and to ask questions if they do not understand what they are told or what they should do.
[2023-03-26] MEDS: SODIUM CHLORIDE 0.9% IV 1,000 ML 150 ML IV CONT (22:00)
[2023-03-27] MEDS: SODIUM CHLORIDE 0.9% IV 1,000 ML 150 ML IV CONT ×3 (05:09→18:15)
[2023-03-27 06:00] VITALS: BP 122/88; PULSE 85; RESP 18; TEMP 36.4; O2SAT 97
[2023-03-27] MEDS: HYDROmorphone HCL INJ (*CRX) 1 MG/ML SYR 0.5 MG IV PUSH ×3 (06:25→17:00)
[2023-03-27 06:29] LABS: Hematocrit 42.1 % (37.0-47.0); Hemoglobin 13.4 g/dL (12.0-15.0); Mean Corpuscular HGB Conc 31.8 g/dl (32-36); Mean Corpuscular Hemoglobin 28.6 pg (26-34); Mean Corpuscular Volume 89.8 fl (80-100); Platelet Count Result 220 k/mm3 (150-375); Red Blood Count 4.69 M/mm3 (4.2-5.4); Red Cell Distribution Width 13.8 % (11.5-14.5); White Blood Count 10.3 K/mm3 (4.5-10.0)
[2023-03-27 06:53] LABS: Alanine Aminotransferase 26 U/L (6-35); Albumin Level 3.2 g/dL (3.5-5.1); Alkaline Phosphatase 64 U/L (38-126); Anion Gap 3 mmol/L (8-16); Aspartate Amino Transferase 31 U/L (14-36); Bilirubin,Total 0.5 mg/dL (0.2-1.3); Blood Urea Nitrogen 12 mg/dL (7-17); Calcium 7.9 mg/dL (8.4-10.2); Carbon Dioxide 22 mmol/L (22-30); Chloride 111 mmol/L (98-107); Estimated CRCL calculation 123 ml/min; Estimated Glomerular Filt Rate > 60; Glucose 100 mg/dL (65-110); Lipase 706 U/L (23-300); Magnesium 2.1 mg/dL (1.6-2.3); Potassium 4.1 mmol/L (3.4-5.0); Sodium 136 mmol/L (137-145)
[2023-03-27 07:47] LABS: Hemoglobin A1C 6.3 % (<5.7)
[2023-03-27] MEDS: lisinopriL 10 MG TABLET PO (08:09)
[2023-03-27] MEDS: LORATADINE 10 MG TABLET PO (08:09)
[2023-03-27] MEDS: ASPIRIN 81 MG ENTERIC TABLET PO (08:09)
[2023-03-27] MEDS: FAMOTIDINE 20 MG TABLET PO (08:09)
[2023-03-27] MEDS: ATORVASTATIN 40 MG TABLET 80 MG PO (08:09)
[2023-03-27] MEDS: DULoxetine HCL 20 MG CAPSULE.DR PO (08:09)
[2023-03-27 09:13] VITALS: O2SAT 95
[2023-03-27] MEDS: ONDANSETRON INJ 4 MG/2 ML VIAL IV PUSH ×2 (12:12→17:01)
[2023-03-27 12:50] LABS: Hepatitis B Surface Antigen Negative (Negative)
[2023-03-27 12:55] LABS: HAV RESULT Negative (Negative); Hepatitis B Core IgM Result Negative (Negative)
[2023-03-27 13:07] LABS: Hepatitis C Virus Antibody Negative (Negative)
--- NOTE | 2023-03-27 13:39 | PM.IMPN ---
Progress Note: A&P Assessment and Plan (1) Ovarian cyst: Qualifiers: Laterality: left Qualified Code(s): N83.202 - Unspecified ovarian cyst, left side Code(s): N83.209 - Unspecified ovarian cyst, unspecified side Status: Acute (2) Acute pancreatitis: Qualifiers: Acute pancreatitis complication: unspecified Pancreatitis type: unspecified pancreatitis type Qualified Code(s): K85.90 - Acute pancreatitis without necrosis or infection, unspecified Code(s): K85.90 - Acute pancreatitis without necrosis or infection, unspecified Status: Acute Plan Acute Pancreatitis -Lipase trending down -IV fluids -advance diet as tolerated -Pain control -Hep panel negative -PPI BID -Antimetics Ovarian cyst -HX of -Sees OBGYN O/P -Patient's previous records reviewed on admission -ER notes reviewed in detail on admission -discussed all findings and current treatment plan with patient/Family/POA -Consultations reviewed for recommendations -Patient's disposition for safe discharge discussed with porter sample case Dictation performed by [employer] speech recognition software, therefore copy cutter variants and typographical errors may occur. -HX of -Follows with OBGYN O/P Code status: Full code per patient DVT prophylaxis: Ambulatory Stress ulcer prophylaxis: Protonix 40 BID PT/OT notes: ambulatory Disposition: Patient continues admission to the medical unit for acute pancreatitis will continue with IV fluids and pain control, will discharge home when medically stable. -Patient's previous records reviewed on admission -ER notes reviewed in detail on admission -discussed all findings and current treatment plan with patient/Family/POA -Consultations reviewed for recommendations -Patient's disposition for safe discharge discussed with porter sample case Dictation performed by [employer] speech recognition software, therefore copy cutter variants and typographical errors may occur. Time Spent With Patient Time with patient: 15 - 25 minutes Subjective Date/time seen: 03/27/23 13:39 Interval history: Chief Complaint: Abdominal pain. Narrative: This is a 38-year-old female smoker with history of stroke, hypertension, hyperlipidemia, depression, and anxiety who presented to the emergency department for evaluation of abdominal pain. The patient provides the following history. She had fast food for dinner last night and several hours thereafter she developed discomfort in her left side. It was not significant she was able to sleep okay. When she got up this morning she was having sharp and stabbing pain in the left upper quadrant radiating somewhat through to the back associated with mild nausea and feelings of being full. The pain is worse with palpation, movement, and deep inspiration. She has never had similar symptoms. No history of pancreatitis, peptic ulcers, gallbladder disease, or kidney stones. Preliminary workup in the emergency department was consistent with acute pancreatitis and she is being admitted in this setting. She denies alcohol abuse, hypertriglyceridemia, and family history of pancreatitis. No known history of gallstones. 03/27: Patient lipase trending down still with moderate pain will advance diet to clear liquid. Patient comfortable with pain regiment and IV fluids. minimal pain to palpation soft ABD. Review of Systems Review of Systems: All systems reviewed & are unremarkable except as noted in HPI and below Exam Narrative: Physical Exam: - GENERAL: Alert and oriented x 3. No acute distress. Well-nourished. - EYES: EOMI. No scleral icterus. PERRLA. - HENT: Moist mucous membranes. No cervical lymphadenopathy. - LUNGS: Clear to auscultation bilaterally. No accessory muscle use. - CARDIOVASCULAR: Regular rate and rhythm. No murmur. No JVD. S1-S2 - ABDOMEN: Soft, tender and non-distended. No palpable m
[2023-03-27 14:00] VITALS: BP 134/86; PULSE 85; RESP 16; TEMP 36.3; O2SAT 96
[2023-03-27 19:25] VITALS: O2SAT 97
[2023-03-27 19:40] VITALS: O2SAT 97
[2023-03-27] MEDS: PANTOPRAZOLE SODIUM IV 40 MG VIAL IV PUSH (20:47)
[2023-03-27 22:00] VITALS: BP 115/74; PULSE 88; RESP 13; TEMP 36.1; O2SAT 97
[2023-03-28] MEDS: SODIUM CHLORIDE 0.9% IV 1,000 ML 150 ML IV CONT ×4 (00:56→20:10)
[2023-03-28] MEDS: ONDANSETRON INJ 4 MG/2 ML VIAL IV PUSH (05:18)
[2023-03-28] MEDS: HYDROmorphone HCL INJ (*CRX) 1 MG/ML SYR 0.5 MG IV PUSH (05:18)
[2023-03-28 05:45] VITALS: BP 134/80; PULSE 94; RESP 14; TEMP 36.6; O2SAT 96
[2023-03-28] MEDS: LORATADINE 10 MG TABLET PO (08:16)
[2023-03-28] MEDS: lisinopriL 10 MG TABLET PO (08:16)
[2023-03-28] MEDS: ASPIRIN 81 MG ENTERIC TABLET PO (08:16)
[2023-03-28] MEDS: DULoxetine HCL 20 MG CAPSULE.DR PO (08:16)
[2023-03-28] MEDS: PANTOPRAZOLE SODIUM IV 40 MG VIAL IV PUSH ×2 (08:22→20:10)
[2023-03-28] MEDS: ATORVASTATIN 40 MG TABLET 80 MG PO (09:21)
--- NOTE | 2023-03-28 11:46 | PM.IMPN ---
Progress Note: A&P Assessment and Plan (1) Ovarian cyst: Qualifiers: Laterality: left Qualified Code(s): N83.202 - Unspecified ovarian cyst, left side Code(s): N83.209 - Unspecified ovarian cyst, unspecified side Status: Acute (2) Acute pancreatitis: Qualifiers: Acute pancreatitis complication: unspecified Pancreatitis type: unspecified pancreatitis type Qualified Code(s): K85.90 - Acute pancreatitis without necrosis or infection, unspecified Code(s): K85.90 - Acute pancreatitis without necrosis or infection, unspecified Status: Acute Plan Acute Pancreatitis -Lipase trending down -IV fluids -advanced diet -Pain control -Hep panel negative -PPI BID -Antimetics -US pending Ovarian cyst -HX of -Sees OBGYN O/P -Patient's previous records reviewed on admission -ER notes reviewed in detail on admission -discussed all findings and current treatment plan with patient/Family/POA -Consultations reviewed for recommendations -Patient's disposition for safe discharge discussed with manager of case Dictation performed by [email or web address] speech recognition software, therefore candy cooker helper variants and typographical errors may occur. -HX of -Follows with OBGYN O/P Code status: Full code per patient DVT prophylaxis: Ambulatory Stress ulcer prophylaxis: Protonix 40 BID PT/OT notes: ambulatory Disposition: Patient continues admission to the medical unit for acute pancreatitis will continue with IV fluids and pain control, will discharge home when medically stable. -Patient's previous records reviewed on admission -ER notes reviewed in detail on admission -discussed all findings and current treatment plan with patient/Family/POA -Consultations reviewed for recommendations -Patient's disposition for safe discharge discussed with manager of case Dictation performed by [email or web address] speech recognition software, therefore candy cooker helper variants and typographical errors may occur. Time Spent With Patient Time with patient: less than 15 minutes Subjective Date/time seen: 03/28/23 11:46 Interval history: Chief Complaint: Abdominal pain. Narrative: This is a 38-year-old female smoker with history of stroke, hypertension, hyperlipidemia, depression, and anxiety who presented to the emergency department for evaluation of abdominal pain. The patient provides the following history. She had fast food for dinner last night and several hours thereafter she developed discomfort in her left side. It was not significant she was able to sleep okay. When she got up this morning she was having sharp and stabbing pain in the left upper quadrant radiating somewhat through to the back associated with mild nausea and feelings of being full. The pain is worse with palpation, movement, and deep inspiration. She has never had similar symptoms. No history of pancreatitis, peptic ulcers, gallbladder disease, or kidney stones. Preliminary workup in the emergency department was consistent with acute pancreatitis and she is being admitted in this setting. She denies alcohol abuse, hypertriglyceridemia, and family history of pancreatitis. No known history of gallstones. 03/27: Patient lipase trending down still with moderate pain will advance diet to clear liquid. Patient comfortable with pain regiment and IV fluids. minimal pain to palpation soft ABD. 03/28: Patient with moderate ABD pain centrally located mid sternal to LUQ. Some pain with liquid diet but able to tolerate will advance. US ordered continue to trend lipase. Review of Systems Review of Systems: All systems reviewed & are unremarkable except as noted in HPI and below Exam Narrative: Physical Exam: - GENERAL: Alert and oriented x 3. No acute distress. Well-nourished. - EYES: EOMI. No scleral icterus. PERRLA. - HENT: Moist mucous membranes. No cervical lymphadenopathy. - LUNGS:
[2023-03-28 12:30] LABS: Lipase 804 U/L (23-300)
[2023-03-28] MEDS: HYDROcodone/acetaminophen (*CRX) 5-325 MG TABLET 1 TAB PO ×2 (13:41→20:10)
[2023-03-28 14:00] VITALS: BP 128/84; PULSE 77; RESP 14; TEMP 36.5; O2SAT 99
[2023-03-28 22:00] VITALS: BP 125/71; PULSE 77; RESP 20; TEMP 36.4; O2SAT 96
[2023-03-29] MEDS: SODIUM CHLORIDE 0.9% IV 1,000 ML 150 ML IV CONT ×2 (02:43→09:32)
[2023-03-29 06:00] VITALS: BP 124/74; PULSE 96; RESP 20; TEMP 36.6; O2SAT 99
[2023-03-29 06:29] LABS: Hematocrit 39.8 % (37.0-47.0); Hemoglobin 12.8 g/dL (12.0-15.0); Mean Corpuscular HGB Conc 32.2 g/dl (32-36); Mean Corpuscular Hemoglobin 28.8 pg (26-34); Mean Corpuscular Volume 89.6 fl (80-100); Mean Platelet Volume 10.1 fl (7.4-10.4); Platelet Count Result 215 k/mm3 (150-375); Red Blood Count 4.44 M/mm3 (4.2-5.4); Red Cell Distribution Width 13.8 % (11.5-14.5)
[2023-03-29 06:40] LABS: Alanine Aminotransferase 25 U/L (6-35); Albumin Level 3.2 g/dL (3.5-5.1); Alkaline Phosphatase 71 U/L (38-126); Anion Gap 5 mmol/L (8-16); Aspartate Amino Transferase 27 U/L (14-36); Bilirubin,Total 0.3 mg/dL (0.2-1.3); Blood Urea Nitrogen 7 mg/dL (7-17); Calcium 8.1 mg/dL (8.4-10.2); Carbon Dioxide 22 mmol/L (22-30); Chloride 112 mmol/L (98-107); Estimated CRCL calculation 141 ml/min; Estimated Glomerular Filt Rate > 60; Glucose 111 mg/dL (65-110); Lipase 171 U/L (23-300); Sodium 139 mmol/L (137-145)
[2023-03-29] MEDS: ATORVASTATIN 40 MG TABLET 80 MG PO (09:26)
[2023-03-29] MEDS: lisinopriL 10 MG TABLET PO (09:26)
[2023-03-29] MEDS: ASPIRIN 81 MG ENTERIC TABLET PO (09:26)
[2023-03-29] MEDS: PANTOPRAZOLE SODIUM IV 40 MG VIAL IV PUSH (09:26)
[2023-03-29] MEDS: DULoxetine HCL 20 MG CAPSULE.DR PO (09:26)
[2023-03-29] MEDS: LORATADINE 10 MG TABLET PO (09:26)
[2023-03-29 09:30] VITALS: O2SAT 99
--- NOTE | 2023-03-29 13:57 | PM.DS ---
DS: Admitting Diagnosis Discharge Date 03/29/23 Admitting Diagnosis Acute Pancreatitis DS: Discharge Diagnosis Discharge Diagnosis (1) Ovarian cyst: Qualifiers: Laterality: left Qualified Code(s): N83.202 - Unspecified ovarian cyst, left side Code(s): N83.209 - Unspecified ovarian cyst, unspecified side Status: Acute (2) Acute pancreatitis: Qualifiers: Acute pancreatitis complication: unspecified Pancreatitis type: unspecified pancreatitis type Qualified Code(s): K85.90 - Acute pancreatitis without necrosis or infection, unspecified Code(s): K85.90 - Acute pancreatitis without necrosis or infection, unspecified Status: Acute Plan Acute Pancreatitis -Resolved -Low fat diet -reduce alcohol intake -Educated on diet and encouraged to increase activity -PPI x 4 weeks A1C 6.3 -Patient refused medication at this time will attempt diet and exercise -Follow-up A1c 3 months -HX of Ovarian cyst -Follows with OBGYN O/P as scheduled DS: Summary Hospital Course Reason for hospitalization: Acute pnacreatitis Hospital Course: Narrative: This is a 38-year-old female smoker with history of stroke, hypertension, hyperlipidemia, depression, and anxiety who presented to the emergency department for evaluation of abdominal pain. The patient provides the following history. She had fast food for dinner last night and several hours thereafter she developed discomfort in her left side. It was not significant she was able to sleep okay. When she got up this morning she was having sharp and stabbing pain in the left upper quadrant radiating somewhat through to the back associated with mild nausea and feelings of being full. The pain is worse with palpation, movement, and deep inspiration. She has never had similar symptoms. No history of pancreatitis, peptic ulcers, gallbladder disease, or kidney stones. Preliminary workup in the emergency department was consistent with acute pancreatitis and she is being admitted in this setting. She denies alcohol abuse, hypertriglyceridemia, and family history of pancreatitis. No known history of gallstones. 03/27:??Patient lipase trending down still with moderate pain will advance diet to clear liquid.? Patient comfortable with pain regiment and IV fluids.? minimal pain to palpation soft ABD. 03/28:??Patient with moderate ABD pain centrally located mid sternal to LUQ.? Some pain with liquid diet but able to tolerate will advance.? US ordered continue to trend lipase. 03/29: Patient lipase trended down, patient reported overall improvement to pain and was tolerating oral intake with no issues. Patient was made aware of elevated A1C 6.3 educated on diet and exercise does not want any medication at this time will need F/U A1C 3 months. Encouraged low fat diet after discharge and limited alcohol intake Status at Discharge Functional status at discharge: independent ambulation Overall status at discharge: patient is back to baseline Time Spent with Patient Time attestation: Total time spent providing and/or coordinating discharge services: Time spent: Less than 30 minutes Exam Narrative: Physical Exam: - GENERAL: Alert and oriented x 3. No acute distress. Well-nourished. - EYES: EOMI. No scleral icterus. PERRLA. - HENT: Moist mucous membranes. No cervical lymphadenopathy. - LUNGS: Clear to auscultation bilaterally. No accessory muscle use. - CARDIOVASCULAR: Regular rate and rhythm. No murmur. No JVD. S1-S2 - ABDOMEN: Soft, non-tender and non-distended. No palpable masses. - EXTREMITIES: No edema. Non-tender -SKIN: No rashes or lesions. Skin warm, dry. - NEUROLOGIC: No focal neurological deficits. CN II-XII grossly intact - PSYCHIATRIC: Appropriate mood and affect. Good judgement and insight. No visual or auditory hallucinations. No suicidal or homicidal ideation. DS: Data Data Completed and Pending Labs on day of discharge: Labs from last 24 hours
== END 2023-03-29 12:05 | disposition home or self-care (01) | DRG 440 ==
LOC: ANHED 12:43 → ANH3MEDSUR 14:07
PROVIDERS: Physician Assistant; Admitting Provider Internal Medicine; Emergency Provider Nurse Practitioner Family; Visit Provider Nurse Practitioner Family
DX: K85.90 Acute pancreatitis without necrosis or infection, unspecified (principal); N83.202 Unspecified ovarian cyst, left side; I10 Essential (primary) hypertension; E78.5 Hyperlipidemia, unspecified; J45.909 Unspecified asthma, uncomplicated; K21.9 Gastro-esophageal reflux disease without esophagitis; M19.90 Unspecified osteoarthritis, unspecified site; R73.9 Hyperglycemia, unspecified; F32.A Depression, unspecified; F12.90 Cannabis use, unspecified, uncomplicated; F41.9 Anxiety disorder, unspecified; F17.210 Nicotine dependence, cigarettes, uncomplicated; Z79.82 Long term (current) use of aspirin; Z86.73 Personal history of transient ischemic attack (TIA), and cerebral infarction without residual deficits; Z89.419 Acquired absence of unspecified great toe
CPT/HCPCS: 36415; 74177; 76700; 80053; 80061; 80074; 81001; 81025; 83036; 83690; 83735; 85025; 85027; 96361; 96374; 96375; 96376; 99285; A9270; C9113; G0378; J1170; J2405; J7030; Q9967

== ENCOUNTER 2023-03-31 17:49 | Emergency (ER) | payer OTHER, SELFPAY ==
--- NOTE | ~2023-03-31 | US_ITS ---
EXAMINATION: US venous doppler E DATE: 03/31/2023 19:25 INDICATION: Swelling and palpable knot at a recent left upper extremity IV access site. TECHNIQUE: Grayscale images without and with compression and Doppler images of the left upper extremi ty veins were obtained. COMPARISON: None. FINDINGS: The left internal jugular vein, subclavian vein, axillary vein, brachial vein, basilic vein, cephalic vein, radial vein, and ulnar vein are patent. IMPRESSION: 1. Patent left upper extremity veins. No evidence of venous thrombosis. Reviewed, dictated and finalized at location [facility]. [facility]
[2023-03-31 18:08] VITALS: BP 140/78; PULSE 95; RESP 20; TEMP 36.5; O2SAT 97
--- NOTE | 2023-03-31 18:10 | ED.SKABFB ---
HPI - Skin/Abscess/Foreign Bdy General Chief complaint: Skin/Abscess/Foreign Body <Janelle Arita PA-C - Last Filed: 03/31/23 20:20> Stated complaint: redness above old IV site <Janelle Arita PA-C - Last Filed: 03/31/23 20:20> Time Seen by Provider: 03/31/23 18:11 <Janelle Arita PA-C - Last Filed: 03/31/23 20:20> Focused HPI: GENERAL: Well-appearing, well-nourished, and in no acute distress. HEAD: Normocephalic, atraumatic. CHEST: Clear to auscultation. ?No respiratory distress. HEART: Regular rate and rhythm.? NEURO: ?Alert and oriented x3. Patient screened in triage and initial orders placed.? ?Additional care and disposition to be based upon?diagnostic testing and treatment. <Janelle Arita PA-C - Last Filed: 03/31/23 20:20> Focused HPI: Patient with recent hospitalization pancreatitis. Has a palpable cord to left AC. GENERAL: Well-appearing, well-nourished, and in no acute distress. HEAD: Normocephalic, atraumatic. CHEST: Clear to auscultation. ?No respiratory distress. HEART: Regular rate and rhythm.? NEURO: ?Alert and oriented x3. Patient screened in triage and initial orders placed.? ?Additional care and disposition to be based upon?diagnostic testing and treatment. <Ryan Devlin MD - Last Filed: 03/31/23 20:03> History of Present Illness HPI narrative: Patient is a 38-year-old female who presents ER with concern for DVT in left upper extremity. Recently hospitalized for pancreatitis. Had multiple IV sticks. She had 1 in her left AC. Since then she has developed some discomfort in the area with palpable cord. No chest pain or shortness breath. No loss consciousness. No redness to the area. <Ryan Devlin MD - Last Filed: 03/31/23 20:03> Related Data Home medications: Home Medications Medication Instructions Recorded Confirmed duloxetine 20 mg capsule,delayed 20 mg PO DAILY 06/05/21 03/26/23 release aspirin 81 mg tablet,delayed 81 mg PO DAILY 05/27/22 03/26/23 release atorvastatin 80 mg tablet (Lipitor) 80 mg PO DAILY 05/27/22 03/26/23 cyclobenzaprine 10 mg tablet 10 mg PO PRN PRN Tension Headache 05/27/22 03/26/23 lisinopril 20 mg tablet 10 mg PO DAILY 05/27/22 03/26/23 loratadine 10 mg tablet (Claritin) 10 mg PO DAILY 07/01/22 03/26/23 <Janelle Arita PA-C - Last Filed: 03/31/23 20:20> Allergies/Adverse reactions: Allergies Allergy/AdvReac Type Severity Reaction Status Date / Time No Known Allergies Allergy Verified 03/31/23 15:15 <Janelle Arita PA-C - Last Filed: 03/31/23 20:20> Review of Systems Constitutional: Constitutional: Reports no additional constitutional complaints <Ryan Devlin MD - Last Filed: 03/31/23 20:03> Cardiovascular: Cardiovascular: Reports no additional cardiovascular complaints <Ryan Devlin MD - Last Filed: 03/31/23 20:03> Respiratory: Respiratory: Reports no additional respiratory complaints <Ryan Devlin MD - Last Filed: 03/31/23 20:03> [facility] Past Medical History Medical History: Medical History Arthritis Asthma Depression with anxiety Gastroesophageal reflux disease Hyperlipidemia Hypertension Partial traumatic amputation of great toe Psoriasis Stroke (12/2021) <Janelle Arita PA-C - Last Filed: 03/31/23 20:20> Surgical History Surgical History: Surgical History History of hysteroscopy (06/2022) D&C and benign polypectomy. History of tonsillectomy and adenoidectomy <Janelle Arita PA-C - Last Filed: 03/31/23 20:20> Family History Family History: Family History Mother Hypertension Sibling Hypertension <Janelle Arita PA-C - Last Filed: 03/31/23 20:20> Social History Social History: Social History Social Hi
== END 2023-03-31 20:22 | disposition home or self-care (01) ==
PROVIDERS: Emergency Provider Emergency Medicine; PCP Nurse Practitioner Adult Health
DX: T80.1XXA Vascular complications following infusion, transfusion and therapeutic injection, initial encounter (principal); I80.8 Phlebitis and thrombophlebitis of other sites; J45.909 Unspecified asthma, uncomplicated; E78.5 Hyperlipidemia, unspecified; I10 Essential (primary) hypertension; K21.9 Gastro-esophageal reflux disease without esophagitis; Z86.73 Personal history of transient ischemic attack (TIA), and cerebral infarction without residual deficits; Z89.419 Acquired absence of unspecified great toe; F17.210 Nicotine dependence, cigarettes, uncomplicated; Y84.8 Other medical procedures as the cause of abnormal reaction of the patient, or of later complication, without mention of misadventure at the time of the procedure; Z79.82 Long term (current) use of aspirin
CPT/HCPCS: 93971; 99284

== ENCOUNTER 2023-05-17 11:09 | Emergency (ER) | payer OTHER, SELFPAY ==
[2023-05-17 11:39] VITALS: BP 139/110; PULSE 100; RESP 20; TEMP 36.5; O2SAT 100
--- NOTE | 2023-05-17 12:57 | PC.NURSE ---
pt lwbs d/t wait time
== END 2023-05-17 13:37 | disposition left against medical advice (07) ==
LOC: ANHED 13:00
PROVIDERS: PCP Nurse Practitioner Adult Health
DX: R10.9 Unspecified abdominal pain (principal)
CPT/HCPCS: 99199

== ENCOUNTER 2024-05-03 11:14 | Outpatient (CLI) | payer OTHER, SELFPAY ==
[2024-05-03 12:08] LABS: Beta HCG Quantitative < 2.39 mIU/ML
--- OUTSIDE RECORDS SUMMARY | 2024-05-03 12:57 | XMS_ITS | Encounter Summary ---
[facility] Address [address] [place] [address] Care Team Providers Care Cloth [facility] Name Role Phone Yelena James MD Primary Care Provider [phone] Encounter Details Date Type Department Care Team (Late st Contact Info) Description 05/02/2024 External Device Data [facility]CTION Provider, Abstract NO ADDRESS ON FILE Social History Tobacco Use Types Packs/Day Years Used Date Smoking Tobacco: Every Day Cigarettes Smokeless Tobacco: Never Alcohol Use Standard Drinks/Week Comments Yes 0 (1 standard drink = 0.6 oz pur e alcohol) once a month Comments No Sex and Gender Information Value Date Recorded Sex Assigned at Not on file Legal Sex Female 3:46 PM CDT Gender Identity Not on file Sexual Orientation Not on file documented as of this encounter Plan of Treatment Not on file documented as of this encounter Visit Diagnoses Not on filedocumented in this encounter Care Teams Cloth [facility] Relationship Specialty Start Date End Date Yelena James MD [address] [place] [address] [place] [address] PCP - General Internal Medicine 09/14/23 documented as of this encounter
--- OUTSIDE RECORDS SUMMARY | 2024-05-03 12:57 | XMS_ITS | Referral Summary ---
Author Organization [facility] Address [address] [place] [address] Care Team Providers Care Order Entry Clerk Name Role Phone Barry Romo MD Unavailable [phone] Yelena James MD Primary Care Provider [phone] Encounters Date Type Department Care Team Description 03/29/2024 4:16 PM CARDIOVASCULAR RN - 03/29/2024 8:02 PM CARDIOVASCULAR RN Emergency [facility] Emergency Department [address] [place] [address] Alvino Feng MD Abdominal pain (Primary Dx); Gastroesophageal reflux disease without esophagitis Discharge Disposition: Discharge to home or self care from Last 3 Months Allergies No known active allergies Medications atorvastatin (LIPITOR) 80 mg tabletIndicatio ns:hyperlipidem ia Take 1 tablet (80 mg total) by mouth daily 30 tablet 2 Active lisinopriL (PRINIVIL,ZESTR IL) 5 mg tablet Take 1 tablet (5 mg total) by mouth daily 30 tablet 2 Active albuterol HFA (PROVENTIL HFA,VENTOLIN HFA,PROAIR HFA) 90 mcg/actuation inhaler Inhale 2 puffs every 6 (six) hours as needed [address] (CYMBALTA) 30 mg capsule Take 1 capsule (30 mg total) by mouth daily 3 Active acetaminophen (TYLENOL) 325 mg tablet Take 2 tablets (650 mg total) by mouth 4 (four) times a day as needed for pain 4 Active dextromethorpha n (DELSYM) syrup 30 mg/5 mLIndications:C ough Take 10 mL (60 mg total) by mouth 2 (two) times a day As needed for cough 4 Active Additional Information Patient not taking.Reported on 12/20/[address] (PROTONIX) 40 mg EC tabletIndicatio ns:Treatment of Non-Bleeding Gastric Disorder Take 1 tablet (40 mg total) by mouth daily before breakfast 4 05/21/19 25 Active Additional Information Patient not taking.Reported on 12/20/2023 polyethylene glycol (MIRALAX) 17 gram/dose bulk powderIndicatio ns:constipation Take 17 g by mouth daily as needed (constipation) 4 Active Additional Information Patient not taking.Reported on 12/20/2023 aspirin 81 mg chewable tablet Take 1 tablet (81 mg total) by mouth daily Active lidocaine 5 % gel Apply 1 Application topically every 6 (six) hours as needed (as need for pain) 30 g 4 Active Additional Information Patient not taking.Reported on 12/20/2023 Active Problems Problem Noted Date Diagnosed Date Acute pancreatitis 07/08/2023 History of stroke 05/18/2023 Assessment & Plan (05/18/2023 4:23 AM CDT): Hx of CVA in 2021 without ongoing deficits. Etiology though to be ischemic. Cont home asa, hold statin during acute pancreatitis. Acute recurrent pancreatitis 05/18/2023 Assessment & Plan (05/20/2023 1:30 PM CDT): Second episode; first episode in Mar. Per report no overt cause found but patient continue to smoke. No clear medication triggers. Presenting with recurrent pain, anorexia, nausea, consistent with symptoms from first presentation. - Lipase 689 - RUQ negative for stone - WBC 14, 71% neutrophils - COVID/flu negative, obtain full RVP --> positive for RSV and non-COVID coronavirus - lipids wnl, TSH normal, A1c 5.8 - mIVF, NPO and ADAT, pain control with IV dilaudid while PO intolerant, Zofran for nausea - Tolerated full liquid, pain free and tolerate low fat diet - Counseled on smoking cessation - Ambulatory referral to GI-biliary service Viral URI 05/18/2023 Assessment & Plan (05/18/2023 4:23 AM CDT): RVP positive for RSV and non-COVID coronavirus. Exposure to known RSV case (child). Possible trigger for recurrent pancreatitis. On room air with mild wheezing. - supportive care, no indication for antibiotics presently - PRN albuterol for wheezing Mood disorder 05/18/2023 Assessment & Plan (05/18/2023 4:24 AM CDT): Continue home Cymbalta. Current smoker 11/11/2022 Assessment & Plan (05/18/2023 4:23 AM CDT): 1PPD smoker. Declines NRT. Encourage abstinence. Hyperlipidemia LDL goal <70 04/27/2022 Primary hypertension 04/27/2022 Assessment & Plan (05/18/2023 4:23 AM CDT): Continue home lisinopril 5mg. Ischemic stroke 01/03/2022 Resolved Problems Problem Noted Date Diagnosed Date Resolved Date Abdominal pain 05/17/2023 06/16/2023 Immunizations Immunization Administration Dates Next Due Influenza, Quadrivalent, Spl it, Preservative Free, Intramuscular 01/05/2022 Pfizer Sars-Cov-2 Bivalent Vaccination (12+ YRS) 01/03/2022 Social History Tobacco Use Types Packs/Day Years Used Date Smoking Tobacco: Every Day Cigarettes Tobacco Cessation:Ready to Q uit: Not Asked Comments:Smoking History Packs/day: 1 Packs Alcohol Use Standard Drinks/Week Comments Yes 0 (1 standard drink = 0.6 oz pur e alcohol) AUDIT-C Answer Date Recorded Q1: How often do you have a drink containing alc ohol? 2-3 times a week 08/09/2023 Q2: How many drinks containi ng alcohol do you have on a typical day when you are drinking? 1 or 2 08/09/2023 Q3: How often do you have si x or more drinks on one occasion? Never 08/09/2023 Hunger Vital Sign Answer Date Recorded Within the past 12 months, y ou worried that your food would run out before you got the money to buy more. Never true 12/20/19 24 Within the past 12 months, t he food you bought just didn't last and you didn't have money to get more. Never true 12/20/2023 Personal Safety Answer Date Recorded Have you ever been in or are you currently in a harmful physical or emotional relationship or is someone making you feel afraid or unsafe? Denies 03/29/2024 Comments Unknown Sex and Gender Information Value Date Recorded Sex Assigned at Not on file Legal Sex Female 8:29 AM CARDIOVASCULAR RN Gender Identity Not on file Sexual Orientation Not on file Last Filed Vital Signs Vital Sign Reading Time Taken Comments Blood Pressure 113/76 03/29/2024 8:00 PM CARDIOVASCULAR RN Pulse 67 03/29/2024 8:00 PM CARDIOVASCULAR RN Temperature 37.2 C (99 F) 03/29/2024 2:23 PM CARDIOVASCULAR RN Respiratory Rate 16 03/29/2024 8:00 PM CARDIOVASCULAR RN Oxygen Saturation 97% 03/29/2024 8:00 PM CARDIOVASCULAR RN Inhaled Oxygen Concentration - - Weight 112.2 kg (247 lb 6.4 oz) 12/20/2023 4:10 PM CDT Height 167.6 cm (5' 6 ) 12/20/2023 4:10 PM CDT Body Mass Index 39.93 12/20/2023 4:10 PM CDT Plan of Treatment Not on file Procedures Procedure Name Priority Date/Time Associated Diagnosis Comments ECG 12-LEAD STAT 03/29/2024 6:[address] ABDOMEN PELVIS W CONTRAST ED 03/29/2024 6:15 PM CARDIOVASCULAR RN TROPONIN I HIGH-SENSITIVITY SERIES (BASELINE, 2HR, 4HR, 6HR) STAT 03/29/2024 5:35 PM CARDIOVASCULAR RN POCT HCG, URINE Routine 03/29/2024 4:39 PM CARDIOVASCULAR RN URINALYSIS, MICROSCOPIC ONLY STAT 03/29/2024 4:34 PM CARDIOVASCULAR RN URINALYSIS AND REFLEX TO MICROSCOPIC STAT 03/29/2024 4:34 PM CARDIOVASCULAR RN EGFR STAT 03/29/2024 2:50 PM CARDIOVASCULAR RN DIFFERENTIAL AUTO STAT 03/29/2024 2:5 0 PM CARDIOVASCULAR RN LIPASE STAT 03/29/2024 2:50 PM CARDIOVASCULAR RN COMPREHENSIVE METABOLIC PANEL STAT 03/29/2024 2:50 PM CARDIOVASCULAR RN CBC WITH AUTO DIFFERENTIAL STAT 03/29/2024 2:50 PM CARDIOVASCULAR RN from Last 3 Months Results * ECG 12-LEAD (03/29/2024 6:49 PM CARDIOVASCULAR RN) Narrative [facility] - 03/29/2024 6:49 PM CARDIOVASCULAR RN Alvino Feng MD 03/29/2024 6:49 PM ECG 12 lead Date/Time: 03/29/2024 6:49 PM Performed by: Alvino Feng MD Authorized by: Xenia Espinoza MD Rate: ECG rate: 70 ECG rate assessment: normal Rhythm: Rhythm: sinus rhythm Ectopy: Ectopy: none QRS: QRS axis: Normal QRS intervals: Normal Conduction: Conduction: normal ST segments: ST segments: Normal T waves: T waves: normal Previous ECG: Previous ECG: Compared to current Date of previous EC05/17/2023 Similarity: No change Interpretation: Interpretation: No significant change Recommended Follow-up: Recommended follow up: further workup in the ED Procedure Note Alvino Feng MD - 03/29/2024 6:49 PM CST Procedure ECG 12 lead Date/Time: 03/29/2024 6:49 PM Performed by: Alvino Feng MD Authorized by: Xenia Espinoza MD Rate: ECG rate: 70 ECG rate assessment: normal Rhythm: Rhythm: sinus rhythm Ectopy: Ectopy: none QRS: QRS axis: Normal QRS intervals: Normal Conduction: Conduction: normal ST segments: ST segments: Normal T waves: T waves: normal Previous ECG: Previous ECG: Compared to current Date of previous EC05/17/2023 Similarity: No change Interpretation: Interpretation: No significant change Recommended Follow-up: Recommended follow up: further workup in the ED Alvino Feng MD 03/29/24 [id number] us Xenia Espinoza MD ECG ORDERABLES Suha jami Result [facility] * CT Abdomen Pelvis W Contrast (03/29/2024 6:15 PM CARDIOVASCULAR RN) Anatomical Region Laterality Modality Body N/A Computed Tomogra phy 03/29/2024 6:30 PM CARDIOVASCULAR RN Impressions 03/29/2024 6:36 PM CARDIOVASCULAR RN No CT to explain the patient's abdominal pain. No evidence of acute process in the abdomen or pelvis. Dictated by: Gregory Graham MD The radiology attending physician has personally reviewed this study, and had reviewed and/or edited this written report and agrees with it. Electronically signed by: Frederick Nazario M.D. Narrative 03/29/2024 6:36 PM CARDIOVASCULAR RN EXAMINATION: Computed tomography of the abdomen and pelvis with intravenous contrast HISTORY: Epigastric and left upper quadrant abdominal pain TECHNIQUE: Transaxial computed tomographic images of the abdomen and pelvis were obtained with intravenous contrast according to the standard protocol after the uneventful administration of 93 mL Opti-Ray 350 intravenous contrast. COMPARISON: CT pelvis 12/03/2023, CT abdomen pelvis 03/26/2023 FINDINGS: The imaged lung bases are clear with exception of a small right lower lobe albin fissural nodule which likely represents an intrapulmonary lymph node. Normal heart size. Normal liver and gallbladder. No biliary ductal dilatation. Old granulomatous disease of the spleen. Normal pancreas. No peripancreatic stranding to suggest pancreatitis. Normal adrenal glands, kidneys, and urinary bladder appear normal appearance of both adnexa, uterine fibroid again noted. Mild scattered colonic diverticula without evidence of diverticulitis. No bowel dilatation. No bowel wall thickening. Normal appendix. Normal stomach. Normal caliber abdominal aorta with mild atherosclerotic calcifications. Portal, splenic, and superior mesenteric veins are patent. No free fluid. No free air. No lymphadenopathy in the abdomen or pelvis. No suspicious osseous lesion. No acute fracture. Procedure Note Frederick Nazario MD - 03/29/2024 EXAMINATION: Computed tomography of the abdomen and pelvis with intravenous contrast HISTORY: Epigastric and left upper quadrant abdominal pain TECHNIQUE: Transaxial computed tomographic images of the abdomen and pelvis were obtained with intravenous contrast according to the standard protocol after the uneventful administration of 93 mL Opti-Ray 350 intravenous contrast. COMPARISON: CT pelvis 12/03/2023, CT abdomen pelvis 03/26/2023 FINDINGS: The imaged lung bases are clear with exception of a small right lower lobe albin fissural nodule which likely represents an intrapulmonary lymph node. Normal heart size. Normal liver and gallbladder. No biliary ductal dilatation. Old granulomatous disease of the spleen. Normal pancreas. No peripancreatic stranding to suggest pancreatitis. Normal adrenal glands, kidneys, and urinary bladder appear normal appearance of both adnexa, uterine fibroid again noted. Mild scattered colonic diverticula without evidence of diverticulitis. No bowel dilatation. No bowel wall thickening. Normal appendix. Normal stomach. Normal caliber abdominal aorta with mild atherosclerotic calcifications. Portal, splenic, and superior mesenteric veins are patent. No free fluid. No free air. No lymphadenopathy in the abdomen or pelvis. No suspicious osseous lesion. No acute fracture. IMPRESSION: No CT to explain the patient's abdominal pain. No evidence of acute process in the abdomen or pelvis. Dictated by: Gregory Graham MD The radiology attending physician has personally reviewed this study, and had reviewed and/or edited this written report and agrees with it. Electronically signed by: Frederick Nazario M.D. Xenia Espinoza MD IMG CT PROCEDURES Fi nal Result * Troponin I high-sensitivity series (baseline, 2hr, 4hr, 6hr) (03/29/2024 5:35 PM CARDIOVASCULAR RN) Trop I hs <4 <=17 ng/L Comment: Interpretive Data For further hscTnI resources including the diagnostic algorithm and an aid in interpretation, copy and paste this link: [email or web address] Current Interpretive Data last revised 2019. Blood 03/29/2024 5:35 PM CARDIOVASCULAR RN 03/29/2024 5:47 PM CARDIOVASCULAR RN us Xenia Espinoza MD LAB BLOOD ORDERABLES Final Result [facility] Department [place] [address] * POCT hCG, urine (03/29/2024 4:39 PM CARDIOVASCULAR RN) HCG, ur, POC Negative Negative Lot Number [id number] QC Backgroud Clear Acceptable QC Control Line Acceptable Urine 03/29/2024 4:39 PM CARDIOVASCULAR RN us Alvino Feng MD POINT OF CARE TEST ORDERABLE S Final Result * (ABNORMAL) Urinalysis reflex to microscopic (03/29/2024 4:34 PM CARDIOVASCULAR RN) Color, ur Yellow Yellow Clarity, ur Clear Clear [facility] Specific gravity, ur 1.035(H) 1.003 - 1.030 [facility] pH, urine 6.5 [facility] Comment: Interpretive Data U rine pH is affected by diet, medications, systemic acid-base disturbances, and renal tubular function. pH may affect urinary stone formation. For example, urine pH below 6.0 may help reduce the tendency for calcium phosphate stones and pH greater than 6.0 may reduce the tendency for uric acid stone formation. Source: [facility] POP Properties Current Interpretive Data was last revised on 2017 Protein, ur ql Trace Negative [facility] Glucose, ur ql Negative Negative [facility] Ketones, ur Negative Negative [facility] Bilirubin, ur Negative Negative [facility] Blood, ur 2+(A) Negative [facility] Urobilinogen, ur 2.0(A) <2.0 mg/dL [facility] Nitrite, ur Negative Negative [facility] Leukocyte esterase, ur Negative Negative [facility] UA reflex comment Reflex to microscopic UA will be performed. [facility] Urine 03/29/2024 4:34 PM CARDIOVASCULAR RN 03/29/2024 4:47 PM CARDIOVASCULAR RN Alvino Feng MD LAB URINE ORDERABLES Final R esult Performing Organization Address [facility] Co de Phone Number [facility] Department [place] [address] * (ABNORMAL) Urinalysis, microscopic only (03/29/2024 4:34 PM CARDIOVASCULAR RN) WBC, ur 0-5 0 - 5 /HPF RBC, ur 6-10(A) 0 - 2 /HPF [facility] Epithelial cells, squamous, ur 1-5 0 - 5 /HPF [facility] Bacteria, ur 2+(A) [facility] Mucous, ur Present(A) [facility] Urine 03/29/2024 4:34 PM CARDIOVASCULAR RN 03/29/2024 4:47 PM CARDIOVASCULAR RN us Alvino Feng MD LAB URINE ORDERABLES Final R esult Performing Organization Address [facility] Co de Phone Number [facility] Department [place] [address] * eGFR (03/29/2024 2:50 PM CARDIOVASCULAR RN) eGFR 75 >=60 mL/min/1. 73 m2 Comment: Interpretive Data Reference Interval Normal >/= 90 mL/min/1.73m2 Mildly decreased* 60 - 89 mL/min/1.73m2 Mildly to moderately decreased 45 - 59 mL/min/1.73m2 Moderately to severely decreased 30 - 44 mL/min/1.73m2 Severely decreased 15 - 29 mL/min/1.73m2 Kidney Failure < 15 mL/min/1.73m2 *Relative to young adult level Estimated glomerular filtration rate is determined by the 2020 CKD-EPI equation recommended by the National Kidney Foundation (A Unifying Approach to GFR Estimation: Recommendations of the NKF-ASK Task Force on Reassessing the Inclusion of Race in Diagnosing Kidney Disease, JASN 2020). The CKD-EPI equation should not be used for patients with unstable renal function and has not been validated in children and those over 70. Current interpretive data was last reviewed 2020. Blood 03/29/2024 2:50 PM CARDIOVASCULAR RN 03/29/2024 3:04 PM CARDIOVASCULAR RN us Alvino Feng MD LAB BLOOD ORDERABLES Final R esult [facility] Department [place] [address] * (ABNORMAL) Differential, auto (03/29/2024 2:50 PM CARDIOVASCULAR RN) Neutrophil abs 4.8 1.5 - 6.5 K/cumm Imm gran abs 0.0 0.0 - 0.1 K/cumm [facility] Lymphocyte abs 3.6(H) 0.8 - 3.3 K/cumm [facility] Monocyte abs 0.6 0.2 - 0.8 K/cumm [facility] Eosinophil abs 0.3 0.0 - 0.5 K/cumm [facility] Basophil abs 0.1 0.0 - 0.1 K/cumm [facility] Neutrophil pct 50.6 % [facility] Comment: Interpretive Data Percent cell count reference ranges are not reported, since discordance with absolute values may lead to misinterpretation of CBC data. Current Interpretive Data was last revised on 2017. Imm gran pct 0.3 % [facility] Comment: Interpretive Data Percent cell count reference ranges are not reported, since discordance with absolute values may lead to misinterpretation of CBC data. Current Interpretive Data was last revised on 2017. Lymphocyte pct 38.1 % [facility] Comment: Interpretive Data Percent cell count reference ranges are not reported, since discordance with absolute values may lead to misinterpretation of CBC data. Current Interpretive Data was last revised on 2017. Monocyte pct 6.7 % [facility] Comment: Interpretive Data Percent cell count reference ranges are not reported, since discordance with absolute values may lead to misinterpretation of CBC data. Current Interpretive Data was last revised on 2017. Eosinophil pct 3.2 % [facility] Comment: Interpretive Data Percent cell count reference ranges are not reported, since discordance with absolute values may lead to misinterpretation of CBC data. Current Interpretive Data was last revised on 2017. Basophil pct 1.1 % [facility] Comment: Interpretive Data Percent cell count reference ranges are not reported, since discordance with absolute values may lead to misinterpretation of CBC data. Current Interpretive Data was last revised on 2017. Blood 03/29/2024 2:50 PM CARDIOVASCULAR RN 03/29/2024 3:04 PM CARDIOVASCULAR RN us Alvino Feng MD LAB BLOOD ORDERABLES Final R esult [facility] Department [place] [address] * CBC with auto differential (03/29/2024 2:50 PM CARDIOVASCULAR RN) WBC 9.5 3.8 - 9.9 K/cumm Hgb 14.4 11.9 - 15.5 g/dL [facility] Hct 42.1 35.6 - 45.5 % [facility] Plt 269 150 - 400 K/cumm [facility] MPV 9.8 9.1 - 12.3 fL [facility] RBC 4.77 3.90 - 5.20 M/cumm [facility] MCV 88.3 81.3 - 96.4 fL [facility] MCH 30.2 27.1 - 33.3 pg [facility] MCHC 34.2 32.3 - 35.7 g/dL [facility] RDW CV 13.0 11.1 - 14.9 % [facility] RDW SD 42.4 35.7 - 48.1 fL [facility] NRBC abs 0.00 0.00 - 0.01 K/cumm [facility] Blood Venous blood specimen / Unknown 03/29/2024 2:50 PM CARDIOVASCULAR RN 03/29/2024 3:04 PM CARDIOVASCULAR RN Alvino Feng MD LAB BLOOD ORDERABLES Final R esult Performing Organization Address City/[facility]/ZIP Co de Phone Number [facility] Department [place] [address] * Lipase (03/29/2024 2:50 PM CARDIOVASCULAR RN) [facility] Lipase 25 10 - 99 Units/L Blood Venous blood specimen / Unknown 03/29/2024 2:50 PM CARDIOVASCULAR RN 03/29/2024 3:04 PM CARDIOVASCULAR RN Alvino Feng MD LAB BLOOD ORDERABLES Final R ult Performing Organization Address [facility] Co de Phone Number [facility] Department [place] [address] * Comprehensive metabolic panel (03/29/2024 2:50 PM CARDIOVASCULAR RN) [facility] Sodium 141 135 - 145 mmol/L Potassium, pl 4.1 3.3 - 4.9 mmol/L [facility] Chloride 107 97 - 110 mmol/L [facility] CO2 27 22 - 32 mmol/L [facility] Anion gap 7 2 - 15 mmol/L [facility] BUN 15 6 - 25 mg/dL [facility] Creatinine 0.99 0.60 - 1.10 mg/dL [facility] Glucose 115 70 - 199 mg/dL [facility] Comment: Interpretive Data Fasting glucose >/= 126 mg/dl is diagnostic for diabetes. Fasting is defined as no caloric intake for at least 8 hours. Fasting glucose between 100 mg/dl to 125 mg/dl is diagnostic of prediabetes. In a patient with classic symptoms of hyperglycemia or hyperglycemic crisis, a random glucose >/= 200 mg/dl is diagnostic for diabetes. In the absence of unequivocal hyperglycemia, results should be confirmed by repeat testing. The classification and Diagnosis of Diabetes Diabetes Care 2021; 46: S19-S40. Current interpretive data was last revised 2022. Calcium 9.5 8.5 - 10.3 mg/dL [facility] Bilirubin, total 0.2 0.1 - 1.2 mg/dL [facility] Protein, pl 6.8 6.5 - 8.5 g/dL [facility] Albumin 4.1 3.5 - 5.0 g/dL [facility] Alk phos 63 40 - 130 Units/L [facility] ALT 31 7 - 45 Units/L [facility] AST 33 10 - 45 Units/L [facility] Blood 03/29/2024 2:50 PM CARDIOVASCULAR RN 03/29/2024 3:04 PM CARDIOVASCULAR RN us Alvino Feng MD LAB BLOOD ORDERABLES Final R esult [facility] Department [place] [address] from Last [address] Advance Directives For more information, please contact: [phone] * Full Code (Latest Code Status on File) Date Activated Date Inactivated Comments 08/09/2023 10:54 AM 08/09/2023 4:33 PM * Full Code Date Activated Date Inactivated Comments 05/18/2023 12:36 AM 05/20/2023 6:57 PM * Full Code Date Activated Date Inactivated Comments 01/04/2022 11:40 PM 01/05/2022 10:09 PM Care Teams Order Entry Clerk Relationship Specialty [place] [id number] [place] [address] PCP - General Internal Medicine 03/29/24 Barry Romo MD [address] [facility] [address] [place] [address] 01/03/22
--- OUTSIDE RECORDS SUMMARY | 2024-05-03 12:57 | XMS_ITS | Encounter Summary ---
Author Organization [facility] Address [address] [place] [address] Phone Care Team Providers Care Digitizer Operator Name Role Phone Unknown, Notinfile Primary Care Provider Unavail able Barry Romo MD Unavailable [phone] Emma Houser NP Primary Care Provider Yelena James MD Primary Care Provider [phone] Encounter Details Date Type Department Care Team (Late st Contact Info) Description 03/26/2023 Orders Only [facility] Scanning, Provider Social History Tobacco Use Types Packs/Day Years Used Date Smoking Tobacco: Heavy Smoker Comments:Smoking History Pac ks/day: 1 Packs Alcohol Use Standard Drinks/Week Comments Yes 0 (1 standard drink = 0.6 oz pur e alcohol) Personal Safety Answer Date Recorded Getting School Help Needed Not on file 03/06 Comments Unknown Sex and Gender Information Value Date Recorded Sex Assigned at Not on file 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 Gender Identity Not on file Sexual Orientation Not on file documented as of this encounter Plan of Treatment Not on file documented as of this encounter Procedures Procedure Name Priority Date/Time Associated Diagnosis Comments SCAN - RADIOLOGY/IMAGING 03/26/2023 documented in this encounter Results * SCAN - RADIOLOGY/IMAGING (03/26/2023) Anatomical Region Laterality Modality Other us Provider Scanning Final Result documented in this encounter Visit Diagnoses Not on filedocumented in this encounter Additional Health Concerns Infection Onset Date Last Indicated Resolved Time RSV, droplet 05/17/2023 05/17/2023 05/24/2023 3:05 AM CDT Coronavirus, droplet 05/17/2023 05/17/202305/23/ 024 3:05 AM CDT COVID: Suspected 05/18/2023 05/18/2023 05/18/2023 3:04 AM CDT documented as of this encounter Care Teams Digitizer Operator Relationship Specialty Start Date End Date Unknown, Notinfile PCP - General 01/03/22 07/07/23 Emma Houser, ARISTEO [address] [facility] [address] [place] [address] PCP - General Statistical Clerk Advertising 07/08/23 03/28/24 [place] [address] [place] [place] [place] [address] PCP - General Internal Medicine 03/29/24 Barry Romo MD [address] [place] [address] 01/03/22 documented as of this encounter
--- OUTSIDE RECORDS SUMMARY | 2024-05-03 12:57 | XMS_ITS | Clinical Summary ---
Author Organization [facility] Address [address] [place] [address] Care Team Providers Care Population Health Manager Name Role Phone Barry Romo MD Unavailable [phone] Yelena James MD Primary Care Provider [phone] Allergies No known active allergies Medications atorvastatin (LIPITOR) 80 mg tabletIndicatio ns:hyperlipidem ia Take 1 tablet (80 mg total) by mouth daily 30 tablet 11 2 Active lisinopriL (PRINIVIL,ZESTR IL) 5 mg tablet Take 1 tablet (5 mg total) by mouth daily 30 tablet 11 2 Active albuterol HFA (PROVENTIL HFA,VENTOLIN HFA,PROAIR [...] times a day As needed for cough Active Additional Information Patient not taking.Reported on 12/20/[address] (PROTONIX) 40 mg EC tabletIndicatio ns:Treatment of Non-Bleeding Gastric Disorder Take 1 tablet (40 mg total) by mouth daily before breakfast 05/21/19 25 Active Additional Information Patient not taking.Reported on 12/20/2023 polyethylene glycol (MIRALAX) 17 gram/dose bulk powderIndicatio ns:constipation Take 17 g by mouth daily as needed (constipation) Active Additional Information Patient not taking.Reported on 12/20/2023 aspirin 81 mg chewable tablet Take 1 tablet (81 mg total) by mouth daily Active lidocaine 5 % gel Apply 1 Application topically every 6 (six) hours as needed (as need for pain) 30 g Active Additional Information Patient not taking.Reported on [...] Date Resolved Date Abdominal pain 05/17/2023 06/16/2023 Encounters Date Type Department Care Team Description 03/29/2024 4:16 PM DISTRIBUTION FIELD TECHNICIAN - 03/29/2024 8:02 PM DISTRIBUTION FIELD TECHNICIAN Emergency [facility] Emergency Department [address] [place] [address] Alvino Feng MD Abdominal pain (Primary Dx); Gastroesophageal reflux disease without esophagitis Discharge Disposition: Discharge to home or self care from Last 3 Months Immunizations Immunization Administration Dates Next Due Influenza, Quadrivalent, Spl it, Preservative Free, Intramuscular 01/05/2022 Pfizer Sars-Cov-2 Bivalent Vaccination (12+ YRS) 01/03/2022 Medical History Medical History Date Comments Hypertension Stroke (HCC) Hyperlipidemia Pancreatitis GERD (gastroesophageal reflux disease) Family History Medical History Relation Name Comments Hyperlipidemia Mother 2 Hyperlipidemi a; Hypertension Mother 2 Hypertension; Hyperthyroidism Mother 2 Hyperthyroid ism; Other Mother 2 Alive and well; Relation Name Status Comments Mother 1 Alive Mother 2 Social History Tobacco Use Types Packs/Day Years [...] on file Legal Sex Female 8:29 AM DISTRIBUTION FIELD TECHNICIAN Gender Identity Not on file Sexual Orientation Not on file Obstetrics History Last Filed Vital Signs Vital Sign Reading Time Taken Comments Blood Pressure 113/76 03/29/2024 8:00 PM DISTRIBUTION FIELD TECHNICIAN Pulse 67 03/29/2024 8:00 PM DISTRIBUTION FIELD TECHNICIAN Temperature 37.2 C (99 F) 03/29/2024 2:23 PM DISTRIBUTION FIELD TECHNICIAN Respiratory Rate 16 03/29/2024 8:00 PM DISTRIBUTION FIELD TECHNICIAN Oxygen Saturation 97% 03/29/2024 8:00 PM DISTRIBUTION FIELD TECHNICIAN Inhaled Oxygen Concentration - - Weight 112.2 kg (247 lb 6.4 oz) 12/20/2023 4:10 PM CDT Height 167.6 cm (5' 6 ) 12/20/2023 4:10 PM CDT Body Mass Index 39.93 12/20/2023 4:10 PM CDT Plan of Treatment Health Maintenance Due Date Last Done Comments Cervical Cancer Screening 1986 Depression Screening 1986 Hepatitis C Screening 1986 Varicella Vaccines (1 of 2 - 13+ 2-dose series) 1999 Hepatitis B Screening 02/27/2004 Regular Well Visit/Exam 18-64 02/27/2004 Pneumococcal vaccine <65 (2 of 2 - PCV) 05/04/2020 05/05/2019 Covid-19 Vaccine (5 - season) 2023 01/03/2022, 01/03/2022, 07/19/2020, Additional history exists Influenza Vaccine (#1) 2023 2, 12/04/2020, 11/29/2019, Additional history exists DTaP/Tdap/Td Vaccine (3 - Td or Tdap) 03/16/2033 03/16/2023, 03/01/2015 HPV Vaccines Aged Out No longer eligi ble based on patient's age to complete this topic Procedures Procedure Name Priority Date/Time Associated Diagnosis Comments ECG 12-LEAD STAT 03/29/2024 6:49 PM DISTRIBUTION FIELD TECHNICIAN CT ABDOMEN PELVIS W CONTRAST ED 03/29/2024 6:15 PM DISTRIBUTION FIELD TECHNICIAN TROPONIN I HIGH-SENSITIVITY SERIES (BASELINE, 2HR, 4HR, 6HR) STAT 03/29/2024 5:35 PM DISTRIBUTION FIELD TECHNICIAN POCT HCG, URINE Routine 03/29/2024 4:39 PM DISTRIBUTION FIELD TECHNICIAN URINALYSIS, MICROSCOPIC ONLY STAT 03/29/2024 4:34 PM DISTRIBUTION FIELD TECHNICIAN URINALYSIS AND REFLEX TO MICROSCOPIC STAT 03/29/2024 4:34 PM DISTRIBUTION FIELD TECHNICIAN EGFR STAT 03/29/2024 2:50 PM DISTRIBUTION FIELD TECHNICIAN DIFFERENTIAL AUTO STAT 03/29/2024 2:5 0 PM DISTRIBUTION FIELD TECHNICIAN LIPASE STAT 03/29/2024 2:50 PM DISTRIBUTION FIELD TECHNICIAN COMPREHENSIVE METABOLIC PANEL STAT 03/29/2024 2:50 PM DISTRIBUTION FIELD TECHNICIAN CBC WITH AUTO DIFFERENTIAL STAT 03/29/2024 2:50 PM DISTRIBUTION FIELD TECHNICIAN from Last 3 Months Results * ECG 12-LEAD (03/29/2024 6:49 PM DISTRIBUTION FIELD TECHNICIAN) Narrative [facility] - 03/29/2024 6:49 PM DISTRIBUTION FIELD TECHNICIAN Alvino Feng MD 03/29/2024 6:49 PM ECG [...] in the ED Alvino Feng MD 03/29/24 7060 Xenia Espinoza MD ECG ORDERABLES Suah jami Result [facility] * CT Abdomen Pelvis W Contrast (03/29/2024 6:15 PM DISTRIBUTION FIELD TECHNICIAN) Anatomical Region Laterality Modality Body N/A Computed Tomogra phy 03/29/2024 6:30 PM DISTRIBUTION FIELD TECHNICIAN Impressions 03/29/2024 6:36 PM DISTRIBUTION FIELD TECHNICIAN No CT to explain the patient's abdominal pain. No evidence of acute process in the abdomen or pelvis. Dictated by: Gregory Graham MD The radiology attending physician has personally reviewed this study, and had reviewed and/or edited this written report and agrees with it. Electronically signed by: Frederick Nazario M.D. Narrative 03/29/2024 6:36 PM DISTRIBUTION FIELD TECHNICIAN EXAMINATION: Computed tomography of the abdomen and [...] (baseline, 2hr, 4hr, 6hr) (03/29/2024 5:35 PM DISTRIBUTION FIELD TECHNICIAN) [facility] Trop I hs <4 <=17 ng/L Comment: Interpretive Data For further hscTnI resources including the diagnostic algorithm and an aid in interpretation, copy and paste this link: [email or web address]/[email or web address] Current Interpretive Data last revised 2019. Blood 03/29/2024 5:35 PM DISTRIBUTION FIELD TECHNICIAN 03/29/2024 5:47 PM DISTRIBUTION FIELD TECHNICIAN Xenia Espinoza MD LAB BLOOD ORDERABLES Final Result [facility] Department [place] [address] * POCT hCG, urine (03/29/2024 4:39 PM DISTRIBUTION FIELD TECHNICIAN) [facility] HCG, ur, POC Negative Negative Lot Number [id number] QC Backgroud Clear Acceptable QC Control Line Acceptable Urine 03/29/2024 4:39 PM DISTRIBUTION FIELD TECHNICIAN Alvino Feng MD POINT OF CARE TEST ORDERABLE S Final Result * (ABNORMAL) Urinalysis reflex to microscopic (03/29/2024 4:34 PM DISTRIBUTION FIELD TECHNICIAN) Color, ur Yellow Yellow Clarity, ur Clear Clear [facility] Specific gravity, ur 1.035(H) 1.003 - 1.030 [facility] pH, urine 6.5 [facility] Comment: Interpretive Data U rine pH is affected by diet, medications, systemic acid-base disturbances, and renal tubular function. pH may affect urinary stone formation. For example, urine pH below 6.0 may help reduce the tendency for calcium phosphate stones and pH greater than 6.0 may reduce the tendency for uric acid stone formation. Source: [facility] [email or web address] Current Interpretive Data was last revised on 2017 Protein, ur ql Trace Negative [facility] Glucose, ur ql Negative Negative [facility] Ketones, ur Negative Negative [facility] Bilirubin, ur Negative Negative [facility] Blood, ur 2+(A) Negative [facility] Urobilinogen, ur 2.0(A) <2.0 mg/dL [facility] Nitrite, ur Negative Negative [facility] Leukocyte esterase, ur Negative Negative [facility] UA reflex comment Reflex to microscopic UA will be performed. [facility] Urine 03/29/2024 4:34 PM DISTRIBUTION FIELD TECHNICIAN 03/29/2024 4:47 PM DISTRIBUTION FIELD TECHNICIAN us Alvino Feng MD LAB URINE ORDERABLES Final R esult [facility] Department [place] [address] * (ABNORMAL) Urinalysis, microscopic only (03/29/2024 4:34 PM DISTRIBUTION FIELD TECHNICIAN) WBC, ur 0-5 0 - 5 /HPF RBC, ur 6-10(A) 0 - 2 /HPF [facility] Epithelial cells, squamous, ur 1-5 0 - 5 /HPF [facility] Bacteria, ur 2+(A) [facility] Mucous, ur Present(A) [facility] Urine 03/29/2024 4:34 PM DISTRIBUTION FIELD TECHNICIAN 03/29/2024 4:47 PM DISTRIBUTION FIELD TECHNICIAN Alvino Feng MD LAB URINE ORDERABLES Final R esult Performing Organization Address [facility] Co de Phone Number [facility] [place] [address] * eGFR (03/29/2024 2:50 PM DISTRIBUTION FIELD TECHNICIAN) eGFR 75 >=60 mL/min/1. 73 m2 Comment: [...] last reviewed 2020. Blood 03/29/2024 2:50 PM DISTRIBUTION FIELD TECHNICIAN 03/29/2024 3:04 PM DISTRIBUTION FIELD TECHNICIAN Alvino Feng MD LAB BLOOD ORDERABLES Final R esult Performing Organization Address [facility]/ZIP Co de Phone Number [facility] [email or web address] [address] * (ABNORMAL) Differential, auto (03/29/2024 2:50 PM DISTRIBUTION FIELD TECHNICIAN) Pathologist [facility] Neutrophil abs 4.8 1.5 - 6.5 K/cumm Imm gran abs 0.0 0.0 - 0.1 K/cumm [facility] Lymphocyte abs 3.6(H) 0.8 - 3.3 K/cumm [facility] Monocyte abs 0.6 0.2 - 0.8 K/cumm [facility] Eosinophil abs 0.3 0.0 - 0.5 K/cumm [facility] Basophil abs 0.1 0.0 - 0.1 K/cumm [facility] Neutrophil pct 50.6 % [facility] Comment: Interpretive Data Percent cell count reference ranges are not reported, since discordance with absolute values may lead to misinterpretation of CBC data. Current Interpretive Data was last revised on 2017. Imm gran pct 0.3 % [facility] Comment: Interpretive Data Percent cell count reference ranges are not reported, since discordance with absolute values may lead to misinterpretation of CBC data. Current Interpretive Data was last revised on 2017. Lymphocyte pct 38.1 % [facility] Comment: Interpretive Data Percent cell count reference ranges are not reported, since discordance with absolute values may lead to misinterpretation of CBC data. Current Interpretive Data was last revised on 2017. Monocyte pct 6.7 % [facility] Comment: Interpretive Data Percent cell count reference ranges are not reported, since discordance with absolute values may lead to misinterpretation of CBC data. Current Interpretive Data was last revised on 2017. Eosinophil pct 3.2 % [facility] Comment: Interpretive Data Percent cell count reference ranges are not reported, since discordance with absolute values may lead to misinterpretation of CBC data. Current Interpretive Data was last revised on 2017. Basophil pct 1.1 % [facility] Comment: Interpretive Data Percent cell count reference ranges are not reported, since discordance with absolute values may lead to misinterpretation of CBC data. Current Interpretive Data was last revised on 2017. Blood 03/29/2024 2:50 PM DISTRIBUTION FIELD TECHNICIAN 03/29/2024 3:04 PM DISTRIBUTION FIELD TECHNICIAN us Alvino Feng MD LAB BLOOD ORDERABLES Final R esult [facility] Department [place] [address] * CBC with auto differential (03/29/2024 2:50 PM DISTRIBUTION FIELD TECHNICIAN) [facility] WBC 9.5 3.8 - 9.9 K/cumm Hgb 14.4 11.9 - 15.5 g/dL [facility] Hct 42.1 35.6 - 45.5 % [facility] Plt 269 150 - 400 K/cumm [facility] MPV 9.8 9.1 - 12.3 fL [facility] RBC 4.77 3.90 - 5.20 M/cumm [facility] MCV 88.3 81.3 - 96.4 fL [facility] MCH 30.2 27.1 - 33.3 pg [facility] MCHC 34.2 32.3 - 35.7 g/dL [facility] RDW CV 13.0 11.1 - 14.9 % [facility] RDW SD 42.4 35.7 - 48.1 fL [facility] NRBC abs 0.00 0.00 - 0.01 K/cumm [facility] Blood Venous blood specimen / Unknown 03/29/2024 2:50 PM DISTRIBUTION FIELD TECHNICIAN 03/29/2024 3:04 PM DISTRIBUTION FIELD TECHNICIAN Alvino Feng MD LAB BLOOD ORDERABLES Final R esult Performing Organization Address City/[facility] Co de Phone Number [facility] Department [place] [address] * Lipase (03/29/2024 2:50 PM DISTRIBUTION FIELD TECHNICIAN) [facility] Lipase 25 10 - 99 Units/L Blood Venous blood specimen / Unknown 03/29/2024 2:50 PM DISTRIBUTION FIELD TECHNICIAN 03/29/2024 3:04 PM DISTRIBUTION FIELD TECHNICIAN Alvino Feng MD LAB BLOOD ORDERABLES Final R esult Performing Organization Address City/[facility]/ZIP Co de Phone Number [facility] Department [place] [address] * Comprehensive metabolic panel (03/29/2024 2:50 PM DISTRIBUTION FIELD TECHNICIAN) Sodium 141 135 - 145 mmol/L Potassium, pl 4.1 3.3 - 4.9 mmol/L [facility] Chloride 107 97 - 110 mmol/L [facility] CO2 27 22 - 32 mmol/L [facility] Anion gap 7 2 - 15 mmol/L [facility] BUN 15 6 - 25 mg/dL [facility] Creatinine 0.99 0.60 - 1.10 mg/dL [facility] Glucose 115 70 - 199 mg/dL [facility] Comment: Interpretive Data Fasting glucose >/= 126 [...] 2022. Calcium 9.5 8.5 - 10.3 mg/dL [facility] Bilirubin, total 0.2 0.1 - 1.2 mg/dL [facility] Protein, pl 6.8 6.5 - 8.5 g/dL [facility] Albumin 4.1 3.5 - 5.0 g/dL [facility] Alk phos 63 40 - 130 Units/L [facility] ALT 31 7 - 45 Units/L [facility] AST 33 10 - 45 Units/L [facility] Blood 03/29/2024 2:50 PM DISTRIBUTION FIELD TECHNICIAN 03/29/2024 3:04 PM DISTRIBUTION FIELD TECHNICIAN us Alvino Feng MD LAB BLOOD ORDERABLES Final R esult [facility] [place] [address] from Last 3 Months Insurance [facility] ACCESS Advance Directives For more information, please contact: [phone] * Full Code (Latest Code Status on File) Date Activated Date Inactivated Comments 08/09/2023 10:54 AM 08/09/2023 4:33 PM * Full Code Date Activated Date Inactivated Comments 05/18/2023 12:36 AM 05/20/2023 6:57 PM * Full Code Date Activated Date Inactivated Comments 01/04/2022 11:40 PM 01/05/2022 10:09 PM Care Teams Population Health Manager Relationship Specialty [place] [address] [place] [address] PCP - General Internal Medicine 03/29/24 Barry oRmo MD [address] [facility] [address] [place] [address] 01/03/22
--- OUTSIDE RECORDS SUMMARY | 2024-05-03 12:57 | XMS_ITS | Encounter Summary ---
Author Organization [facility] Address [address] [address] Care Team Providers Care Property And Supply Officer Name Role Phone Barry Romo MD Primary Care Provider Unknown, Notinfile Primary Care Provider Unavail able Barry Romo MD Unavailable [phone] Emma Houser NP Primary Care Provider [phone] Yelena James MD Primary Care Provider [phone] Encounter Details Date Type Department Care Team (Late st Contact Info) Description 07/22/2016 Orders Only [facility] ProviderNora MD [address] [place] [address] Social History Tobacco Use Types Packs/Day Years Used Date Smoking Tobacco: Heavy Smoker Comments:Smoking History Pac ks/day: 1 Packs Alcohol Use Standard Drinks/Week Comments Yes 0 (1 standard drink = 0.6 oz pur e alcohol) Comments Unknown Sex and Gender Information Value Date Recorded Sex Assigned at Not on file Legal Sex 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 us Historical Provider [facility] MARTHA MENJIVAR Final Result documented in this encounter Visit Diagnoses Not on filedocumented in this encounter Additional Health Concerns Infection Onset Date Last Indicated Resolved Time COVID: Suspected 01/03/2022 01/03/2022 01/03/2022 12:39 PM CDT RSV, droplet 05/17/2023 05/17/2023 05/24/2023 3:05 AM CDT Coronavirus, droplet 05/17/2023 05/17/20232 024 3:05 AM CDT COVID: Suspected 05/18/2023 05/18/2023 05/18/2023 3:04 AM CDT documented as of this encounter Care Teams Property And Supply Officer Relationship Specialty Start Date End Date Barry Romo MD [address] [place] [address] PCP - General 06/26/16 01/02/22 Unknown, Notinfile PCP - General 01/03/22 07/07/23 [place] [address] [address] [address] PCP - General Weight Tester 07/08/23 03/28/24 [place] [address] [place] [place] [place] [address] PCP - General Internal Medicine 03/29/24 Barry Romo MD [address] [place] [address] 01/03/22 documented as of this encounter
--- OUTSIDE RECORDS SUMMARY | 2024-05-03 12:57 | XMS_ITS | Clinical Summary ---
Author Organization [facility] [email or web address] [place] Address [address] [place] [address] Care Team Providers Care [place] Support Worker Name Role Phone Yelena James MD Primary Care Provider [phone] Allergies Active Allergy Reactions Criticality Noted Date Comments Atorvastatin Muscle Pain Low 04/12/2024 Medications albuterol sulfate 90 mcg/Actuation inhaler Take 2 Puffs by inhalation every 6 hours as needed for Shortness of Breath. 8.5 Gram 2 2 Active triamcinolone acetonide (KENALOG) 0.1 % CreamIndications :Eczema, unspecified type Apply to affected area 2 times daily. 30 Gram 1 2 Active loratadine (CLARITIN) 10 mg tablet Take 10 mg by mouth daily. Active aspirin (ECOTRIN EC) 81 mg Tablet, Delayed Release (E.C.) Take 1 Tablet (81 mg) by mouth daily. 90 Tablet 3 Active fluticasone propionate (FLONASE) 50 mcg/spray [place], Suspension nasal inhaler Administer 2 Sprays in each nostril daily. 16 Gram 4 Active DULoxetine (CYMBALTA) 30 mg Capsule, Delayed Release(E.C.)Ind ications:Irritab ility Take 1 Capsule (30 mg) by mouth daily. 90 Capsule 5 Active lisinopriL (PRINIVIL) 10 mg tablet Take 1 Tablet (10 mg) by mouth daily. 90 Tablet 5 Active pantoprazole (PROTONIX) 40 mg Tablet, Delayed Release (E.C.)Indication s:Other acute pancreatitis without infection or necrosis TAKE 1 TABLET DAILY 60 Tablet 5 5 Active nicotine (NICODERM CQ) 21 mg/24 hr patch Apply 1 Patch to skin as directed every 24 hours. 28 Patch 2 4 025 Discontin ued(Other ) atorvastatin (LIPITOR) 80 mg tablet Take 1 Tablet (80 mg) by mouth daily. 90 Tablet 4 025 Discontin ued(Side effect/in tolerance ) Active Problems Problem Noted Date Diagnosed Date History of adverse response to anesthesia - see overview 07/202308/30/2023 Overview (08/30/2023): 07/2023 with EUS-- Poor tolerance to anesthesia due to high propofol requirements and respiratory distress that was characterized by hypoxia and persistent coughing. This can be seen prior history of smoking tobacco, marijuana, and/ or alcohol use history. History of stroke without residual deficits 03/2023 Overview (04/01/2023): 12/2021. Stroke Summary per neurology notes. Location: Acute ischemic infarct in the left posterior limb of the internal capsule/centrum semiovale Symptoms: difficulty speaking and R tongue and arm heaviness Etiology: vs cardio-embolic Vascular imaging: CTA normal Cardiac testing: TTE EF65% neg bubble (no PFO), normal, 30 d EM no record available?? Lab testing: A1c 5.8%, LDL 133, LPA 13 (on statin), B2GP and Anticardiolipin abs neg, LAC neg, FVL and [id number] negative Prediabetes 03/23/2023 Vitamin D deficiency 03/23/2023 Primary hypertension 04/27/2022 Hyperlipidemia LDL goal <70 04/27/2022 Chronic tension headaches 01/07/2022 Muscular incoordination 01/07/2022 Asthma 04/08/2020 Attention deficit hyperactivity disorder 021 Fibromyalgia 04/08/2020 Obesity 04/08/2020 Seasonal allergic rhinitis 04/08/2020 Onychomycosis 03/24/2019 Tobacco use 03/24/2019 Gastroesophageal reflux disease without esophagi tis 03/03/2019 Resolved Problems Problem Noted Date Diagnosed Date Resolved Date Acute pancreatitis 04/08/2023 5 Overview (08/30/2023): EUS 07/2023-- Pancreatic changes consistent with fatty infiltration and sequelae of prior pancreatitis. No findings consistent with auto-immune pancreatitis or other etiology throughout the gland and the tail. 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 Chondromalacia, knee, right 08/17/2022 03/23/2023 Smoking 04/08/2022 03/23/2023 Cerebrovascular accident (CVA) 01/03/2022 04/01/2023 Ischemic stroke 01/03/2022 04/06/2024 Pain in both feet 04/16/2020 03/23/2023 Plantar fasciitis of right foot 04/16/2020 03/23/2023 Bronchitis 04/08/2020 03/23/2023 Dizziness 04/08/2020 03/23/2023 Heartburn 04/08/2020 03/23/2023 Irritability 09/20/2019 03/23/2023 RUQ abdominal pain 03/24/2019 0 Encounters Date Type Department Care Team Description 05/02/2024 External Device Data STL ABSTRACTION Provider, Abstract 04/06/2024 2:00 PM RESIDENTIAL REAL ESTATE SALES MANAGER Office Visit [facility] [place] [address] [place] [address] Yelena James MD Acute cough (Primary Dx); Declined influenza vaccine; Gastroesophageal reflux disease without esophagitis; Hyperlipidemia LDL goal <70 04/04/2024 Telephone [facility] [address] [place] [address] Yelena James MD Needs Appointment 03/22/2024 Refill [facility] [address] [place] [address] Yelena James MD Other acute pancreatitis without infection or necrosis 03/03/2024 1:40 PM RESIDENTIAL REAL ESTATE SALES MANAGER Procedure visit [facility] at [facility] [employer] [place] [address] [address] Issue of repeat prescription for medication (Primary Dx) 03/02/2024 Refill [facility] at [facility] [employer] [place] [address] [place] [phone] Emma Houser, ANP [facility] 02/10/2024 9:30 AM RESIDENTIAL REAL ESTATE SALES MANAGER Office Visit [facility] [employer] [place] [address] [phone] Yelena James MD Myalgia (Primary Dx); Paresthesia; Arthralgia, unspecified joint from Last 3 Months Immunizations Immunization Administration Dates Next Due (ADACEL/BOOSTRIX)(10 YR UP) TDAP VACCINE, 0.5ML, IM 03/16/2023,03/01/2015 (PFIZER)(12 YR UP) COVID-19 VACCINE - EMERGENCY USE AUTHORIZATION, MRNA, [id number](PF) 30 MCG/0.3 ML IM SUSP 01/03/2022 (PNEUMOVAX 23)(50 YRS UP) PN EUMOCOCCAL POLYSACCHARIDE (PPV23) 0.5 ML, IM 05/05/2019 INFLUENZA VACCINE QUADRIVALENT 6 MOS UP IM 12/14 INFLUENZA VACCINE QUADRIVALE NT 6 MOS UP PF IM 01/05/2022,12/04/2020,11/29/2019 Influenza Seasonal Unspecifi ed Formulation IM 01/05/2022 Family History Medical History Relation Name Comments Unknown Father No Known Problems Half-Brother Other Half-Sister swelling in bra in stem Unknown Maternal Grandfather severe lung disease Sudden Maternal Grandmother MVA Hypertension Mother Other Mother Fibromyalgia Thyroid Disease Mother Relation Name Status Comments Father Other Half-Brother Alive Half-Sister Alive Maternal Grandfather Maternal Grandmother Mother Alive Social History Tobacco Use Types Packs/Day Years Used Date Smoking Tobacco: Every Day Cigarettes Smokeless Tobacco: Never Tobacco Cessation:Ready to Q uit: Not Asked; Counseling Given: Not Answered Alcohol Use Standard Drinks/Week Comments Yes 0 (1 standard drink = 0.6 oz pur e alcohol) once a month Comments No Sex and Gender Information Value Date Recorded Sex Assigned at Not on file Legal Sex Female 3:46 PM CDT Gender Identity Not on file Sexual Orientation Not on file Last Filed Vital Signs Vital Sign Reading Time Taken Comments Blood Pressure 116/76 04/06/2024 2:01 PM RESIDENTIAL REAL ESTATE SALES MANAGER Pulse 84 04/06/2024 2:01 PM RESIDENTIAL REAL ESTATE SALES MANAGER Temperature 36.9 C (98.5 F) 04/06/2024 2:01 PM RESIDENTIAL REAL ESTATE SALES MANAGER Respiratory Rate 18 04/06/2024 2:01 PM RESIDENTIAL REAL ESTATE SALES MANAGER Oxygen Saturation 96% 04/06/2024 2:01 PM RESIDENTIAL REAL ESTATE SALES MANAGER Inhaled Oxygen Concentration - - Weight 111.1 kg (245 lb) 04/06/2024 2:01 PM RESIDENTIAL REAL ESTATE SALES MANAGER Height 167.6 cm (5' 6 ) 04/06/2024 2:01 PM RESIDENTIAL REAL ESTATE SALES MANAGER Body Mass Index 39.54 04/06/2024 2:01 PM RESIDENTIAL REAL ESTATE SALES MANAGER Plan of Treatment Health Maintenance Due Date Last Done Comments HEPATITIS B VACCINES (1 of 3 - 19+ 3-dose series) 2005 CERVICAL CANCER SCREENING 02/27/2016 COVID-19 Vaccine ( season) 2023 01/03/2022 Preventative Visit- Commercial 03/01/2024 Pre-Diabetes and Diabetes Screening 03/18/2026 03/18/2023, 11/11/2022, 08/20/2022, Additional history exists DTAP/TDAP/TD VACCINES (3 - Td or Tdap) 03/16/2033 03/16/2023, 03/01/2015 INFLUENZA VACCINE Completed 04/06/2024, , 01/05/2022, Additional history exists HPV VACCINES Aged Out No longer eligi ble based on patient's age to complete this topic Procedures Procedure Name Priority Date/Time Associated Diagnosis Comments POC INFLUENZA A AND B ANTIGEN Routine 04/06/2024 2:45 PM RESIDENTIAL REAL ESTATE SALES MANAGER Acute cough DRE SCREEN W/REFLEX Routine 02/10/2024 1 0:18 AM RESIDENTIAL REAL ESTATE SALES MANAGER Myalgia Arthralgia, unspecified joint CK Routine 02/10/2024 10:18 AM RESIDENTIAL REAL ESTATE SALES MANAGER Myalgia Arthralgia, unspecified joint SEDIMENTATION RATE Routine 02/10/2024 10 :18 AM RESIDENTIAL REAL ESTATE SALES MANAGER Myalgia Arthralgia, unspecified joint C-REACTIVE PROTEIN Routine 02/10/2024 10 :18 AM RESIDENTIAL REAL ESTATE SALES MANAGER Myalgia Arthralgia, unspecified joint TSH Routine 02/10/2024 10:18 AM RESIDENTIAL REAL ESTATE SALES MANAGER Myalgia Arthralgia, unspecified joint CBC WITH DIFFERENTIAL Routine 02/10/2024 10:18 AM RESIDENTIAL REAL ESTATE SALES MANAGER Myalgia Arthralgia, unspecified joint COMPREHENSIVE METABOLIC PANEL Routine 02/10/2024 10:18 AM RESIDENTIAL REAL ESTATE SALES MANAGER Myalgia Paresthesia Arthralgia, unspecified joint VITAMIN B12 LEVEL Routine 02/10/2024 10: 18 AM RESIDENTIAL REAL ESTATE SALES MANAGER Paresthesia HEMOGLOBIN A1C Routine 03/18/2023 7:28 AM RESIDENTIAL REAL ESTATE SALES MANAGER Obesity, unspecified classification, unspecified obesity type, unspecified whether serious comorbidity present from Last 3 Months or Most Recently Relevant to Health Maintenance Results * POC INFLUENZA A AND B ANTIGEN (04/06/2024 2:45 PM RESIDENTIAL REAL ESTATE SALES MANAGER) INFLUENZA A AG POC Negative/Not Detected Negative/Not Detected [facility] [place] INFLUENZA B AG POC Negative/Not Detected Negative/Not Detected [facility] [place] INTERNAL KIT QC POC Pass Pass [facility] [place] KIT LOT NUMBER POC [id number] [facility] [place] KIT EXP DATE POC 10/01/2024 [facility] [place] READ METHOD POC Instrument [facility] [place] Upper Respiratory ANTERIOR NARES SWAB / Unknown 04/06/2024 2:45 PM RESIDENTIAL REAL ESTATE SALES MANAGER us Yelena James MD POINT OF CARE TESTING Final Re sult [facility] CLIA# [id number] [address] [place] [address] * (ABNORMAL) CBC WITH DIFFERENTIAL (02/10/2024 10:18 AM RESIDENTIAL REAL ESTATE SALES MANAGER) Pathologist [facility] WBC 10.9(H) 3.8 - 10.8 Thousand/u L [facility] RBC 4.91 3.80 - 5.10 Million/uL [facility] HEMOGLOBIN 15.0 11.7 - 15.5 g/dL [facility] HEMATOCRIT 45.1(H) 35.0 - 45.0 % [facility] MCV 91.9 80.0 - 100.0 fL [facility] MCH 30.5 27.0 - 33.0 pg [facility] MCHC 33.3 32.0 - 36.0 g/dL [facility] Comment: For adults, a slight decrease in the calculated MCHC value (in the range of 30 to 32 g/dL) is most likely not clinically significant; however, it should be interpreted with caution in correlation with other red cell parameters and the patient's clinical condition. RDW 13.6 11.0 - 15.0 % [facility] PLATELETS 271 140 - 400 Thousand/u L [facility] MPV 10.5 7.5 - 12.5 fL [facility] NEUTROPHIL ABSOLUTE 6,387 1,500 - 7,800 cells/uL [facility] LYMPHOCYTE ABSOLUTE 3,543 850 - 3,900 cells/uL [facility] MONOCYTE ABSOLUTE 719 200 - 950 cells/uL [facility] EOSINOPHIL ABSOLUTE 185 15 - 500 cells/uL [facility] BASOPHILS ABSOLUTE 65 0 - 200 cells/uL [facility] NEUTROPHIL 58.6 % [facility] LYMPHOCYTES 32.5 % [facility] MONOCYTE 6.6 % [facility] EOSINOPHILS 1.7 % [facility] BASOPHILS 0.6 % [facility] Comment: Test Performed at: [facility] [address] [address] [address] Simba Turcios MD Blood 02/10/2024 10:1 8 AM RESIDENTIAL REAL ESTATE SALES MANAGER 02/11/2024 6:11 AM RESIDENTIAL REAL ESTATE SALES MANAGER us Yelena James MD HEMATOLOGY ORDERABLES Final Re sult Performing Organization Address [facility] Co de Phone Number [facility] [phone] [facility] [employer] [facility] [address] * SEDIMENTATION RATE (02/10/2024 10:18 AM RESIDENTIAL REAL ESTATE SALES MANAGER) ESR (SEDIMENTATION RATE) 2 < OR = 20 mm/h [facility] Comment: Test Performed at: [facility] [place] [address] Simba Turcios MD Blood 02/10/2024 10:1 8 AM RESIDENTIAL REAL ESTATE SALES MANAGER 02/11/2024 6:11 AM RESIDENTIAL REAL ESTATE SALES MANAGER us Yelena James MD HEMATOLOGY ORDERABLES Final Re sult Performing Organization Address [facility] de Phone Number [facility] [phone] [facility] [address] [place] [phone] * C-REACTIVE PROTEIN (02/10/2024 10:18 AM RESIDENTIAL REAL ESTATE SALES MANAGER) Pathologist [facility] CRP <3.0 <8.0 mg/L [facility] Comment: Test Performed at: [facility] [address] Simba Turcios MD Blood 02/10/2024 10:1 8 AM RESIDENTIAL REAL ESTATE SALES MANAGER 02/11/2024 6:11 AM RESIDENTIAL REAL ESTATE SALES MANAGER us Yelena James MD CHEMISTRY ORDERABLES Final Res ult Performing Organization Address [facility] Co de Phone Number [facility] [phone] [facility] [address] * DRE SCREEN W/REFLEX (02/10/2024 10:18 AM RESIDENTIAL REAL ESTATE SALES MANAGER) Pathologist [facility] DRE SCREEN NEGATIVE NEGATIVE [facility] [place] Comment: DRE IFA is a first line screen for detecting the presence of up to approximately 150 autoantibodies in various autoimmune diseases. A negative DRE IFA result suggests an DRE-associated autoimmune disease is not present at this time, but is not definitive. If there is high clinical suspicion for Sjogren's syndrome, testing for anti-SS-A/Ro antibody should be considered. Anti-Ayaka-1 antibody should be considered for clinically suspected inflammatory myopathies. AC-0: Negative International Consensus on DRE Patterns (https://doi.org/10.1515/zxty-6255-7414) For additional information, please refer to http://education.Grid Net/faq/LOK802 (This link is being provided for informational/ educational purposes only.) Test Performed at: [employer] [place] [address] Simba Turcios MD Blood 02/10/2024 10:1 8 AM RESIDENTIAL REAL ESTATE SALES MANAGER 02/11/2024 6:11 AM RESIDENTIAL REAL ESTATE SALES MANAGER us Yelena James MD CHEMISTRY ORDERABLES Final Res ult Performing Organization Address [facility]/ZIP Co de Phone Number [facility] [phone] [facility] [email or web address] [place] [address] * TSH (02/10/2024 10:18 AM RESIDENTIAL REAL ESTATE SALES MANAGER) TSH 0.84 mIU/L [facility] Comment: Reference Range > or = 20 Years 0.40-4.50 Ranges First trimester 0.26-2.66 Second trimester 0.55-2.73 Third trimester 0.43-2.91 Test Performed at: [employer] [address] Simba Turcios MD Blood 02/10/2024 10:1 8 AM RESIDENTIAL REAL ESTATE SALES MANAGER 02/11/2024 6:11 AM RESIDENTIAL REAL ESTATE SALES MANAGER us Yelena James MD CHEMISTRY ORDERABLES Final Res ult [facility] [phone] [facility] [address] [place] [address] * VITAMIN B12 LEVEL (02/10/2024 10:18 AM RESIDENTIAL REAL ESTATE SALES MANAGER) Pathologist [facility] VITAMIN B12 459 200 - 1100 pg/mL [facility] Comment: Test Performed at: [facility] [address] [place] [phone] Simba Turcios MD Blood 02/10/2024 10:1 8 AM RESIDENTIAL REAL ESTATE SALES MANAGER 02/11/2024 6:11 AM RESIDENTIAL REAL ESTATE SALES MANAGER us Yelena James MD CHEMISTRY ORDERABLES Final Res ult Performing Organization Address [facility]/ZIP Co de Phone Number [facility] [phone] [facility] [address] [place] [phone] * CK (02/10/2024 10:18 AM RESIDENTIAL REAL ESTATE SALES MANAGER) Pathologist [facility] CK 86 29 - 143 U/L [facility] Comment: Test Performed at: [facility] [address] Simba Turcios MD Blood 02/10/2024 10:1 8 AM RESIDENTIAL REAL ESTATE SALES MANAGER 02/11/2024 6:11 AM RESIDENTIAL REAL ESTATE SALES MANAGER us Yelena James MD CHEMISTRY ORDERABLES Final Res ult Performing Organization Address [facility]/ZIP Co de Phone Number [facility] [phone] [facility] [address] [place] [phone] * COMPREHENSIVE METABOLIC PANEL (02/10/2024 10:18 AM RESIDENTIAL REAL ESTATE SALES MANAGER) Pathologist [facility] GLUCOSE 85 65 - 99 mg/dL [facility] Comment: Fasting reference interval BUN 16 7 - 25 mg/dL [facility] CREATININE 0.80 0.50 - 0.97 mg/dL [facility] GFR 97 > OR = 60 mL/min/1. 73m2 [facility] BUN/CREAT RATIO SEE NOTE: 6 - 22 (calc) [facility] Comment: Not Reported: BUN and Creatinine are within reference range. SODIUM 138 135 - 146 mmol/L [facility] POTASSIUM 4.1 3.5 - 5.3 mmol/L [facility] CHLORIDE 105 98 - 110 mmol/L [facility] CO2 26 20 - 32 mmol/L [facility] CALCIUM 9.6 8.6 - 10.2 mg/dL [facility] TOTAL PROTEIN 7.0 6.1 - 8.1 g/dL [facility] ALBUMIN 4.4 3.6 - 5.1 g/dL [facility] GLOBULIN 2.6 1.9 - 3.7 g/dL (calc) [facility] ALBUMIN/GLOBULIN RATIO 1.7 1.0 - 2.5 (calc) [facility] BILIRUBIN TOTAL 0.4 0.2 - 1.2 mg/dL [facility] ALKALINE PHOSPHATASE 66 31 - 125 U/L [facility] AST 20 10 - 30 U/L [facility] ALT 26 6 - 29 U/L [facility] Comment: Test Performed at: [facility] [address] Simba Turcios MD Blood 02/10/2024 10:1 8 AM RESIDENTIAL REAL ESTATE SALES MANAGER 02/11/2024 6:11 AM RESIDENTIAL REAL ESTATE SALES MANAGER us Yelena James MD CHEMISTRY ORDERABLES Final Res ult [facility] [phone] [facility] [address] * (ABNORMAL) HEMOGLOBIN A1C (03/18/2023 7:28 AM RESIDENTIAL REAL ESTATE SALES MANAGER) HEMOGLOBIN A1C 5.8(H) <5.7 % of total Hgb [facility] Comment: For someone without known diabetes, a hemoglobin A1c value between 5.7% and 6.4% is consistent with prediabetes and should be confirmed with a follow-up test. For someone with known diabetes, a value <7% indicates that their diabetes is well controlled. A1c targets should be individualized based on duration of diabetes, age, comorbid conditions, and other considerations. This assay result is consistent with an increased risk of diabetes. Currently, no consensus exists regarding use of hemoglobin A1c for diagnosis of diabetes for children. ESTIMATED AVERAGE GLUCOSE (MG/DL) 120 mg/dL [facility] ESTIMATED AVERAGE GLUCOSE (MMOL/L) 6.6 mmol/L [facility] Comment: HbA1c performed on [employer] platform. Test Performed at: [facility] [address] [address] Simba Turcios MD Blood 03/18/2023 7:28 AM RESIDENTIAL REAL ESTATE SALES MANAGER 03/19/2023 6:53 AM RESIDENTIAL REAL ESTATE SALES MANAGER Emma Houser [facility] CHEMISTRY ORDERABLES Final R esult [facility] [phone] [facility] [address] [address] [phone] from Last 3 Months or Most Recently Relevant to Health Maintenance Insurance ALLEGIANCE OPEN ACCESS ALLEGIAN OPEN ACCESS Care Teams [employer]anau Support Worker Relationship Specialty Start Date End Date Yelena James MD [address] [place] [phone] PCP - General Internal Medicine 09/14/23
== END 2024-05-03 11:15 | disposition home or self-care (01) ==
PROVIDERS: PCP Nurse Practitioner Adult Health; Visit Provider Student in an Organized Health Care Education/Training Program
DX: N91.2 Amenorrhea, unspecified (principal)
CPT/HCPCS: 36415; 84702

== ENCOUNTER 2024-06-23 09:00 | Outpatient (CLI) | payer OTHER, SELFPAY ==
--- NOTE | 2024-06-23 | EST_ITS ---
Patient Info Name: Guerita Deutsch Age: 39 years : 1985 Gender: Female Ht: 66 in Wt: 235 lbs BSA: 2.28 m2 BP: 112 / 77 mmHg Technical Quality: Good Exam Date: 06/23/2024 10:29 AM Exam Location: Echo Lab Patient Status: Outpatient Admit Date: 06/23/2024 Staff Ordering Physician: Mik, Emma Velazquez APRN Furniture Removalist: Diane Muller RDCS, RT Attending Provider: Mik, Emma Velazquez APRN Referring Physician: Mik MONROE; Exercise Technologist: Karina Charlton RDCS Exercise Physician: Murray Pereira DO Exam Type: CA stress echo Study Info Indications R07.9 - Chest pain, unspecified Treadmill exercise stress echocardiogram is performed. Summary 1. 1. Negative Ulises exercise stress test for ischemic ST changes by ECG criteria. 2. 2. Reduced functional capacity, achieving 6.8 METs of workload. 3. 3. Appropriate HR response to exercise. 4. 4. Appropriate HR recovery at 1 minute post exercise. 5. 5. Negative stress echocardiogram for ischemia by wall motion analysis. 6. 6. Patient informed of the above results. Stress Echo Findings Left Ventricle Appropriate increase in LV endocardial thickening with systole. Appropriate augmentation of contractility with systole. No wall motion abnormality. Left Ventricle Preserved LV systolic function with EF 50%. No wall motion abnormalities. Protocol: [place]ises Stress ECG Details Stage: REST Duration (min): 1 min : 11 sec Speed (mph): 0.0 Grade (%): 0 HR (bpm): 72 SBP (mmHg): 112 DBP (mmHg): 77 METS: --- Stage: REST Duration (min): 57 min : 57 sec Speed (mph): 0.0 Grade (%): 0 HR (bpm): 75 SBP (mmHg): 112 DBP (mmHg): 77 METS: --- Stage: STAGE 1 Duration (min): 1 min : 0 sec Speed (mph): 1.7 Grade (%): 10 HR (bpm): 114 SBP (mmHg): 112 DBP (mmHg): 77 METS: --- Stage: STAGE 1 Duration (min): 2 min : 0 sec Speed (mph): 1.7 Grade (%): 10 HR (bpm): 131 SBP (mmHg): 112 DBP (mmHg): 77 METS: --- Stage: STAGE 1 Duration (min): 3 min : 0 sec Speed (mph): 1.7 Grade (%): 10 HR (bpm): 134 SBP (mmHg): 151 DBP (mmHg): 97 METS: --- Stage: STAGE 2 Duration (min): 1 min : 0 sec Speed (mph): 2.5 Grade (%): 12 HR (bpm): 153 SBP (mmHg): 151 DBP (mmHg): 97 METS: --- Stage: STAGE 2 Duration (min): 1 min : 17 sec Speed (mph): 0.0 Grade (%): 0 HR (bpm): 161 SBP (mmHg): 151 DBP (mmHg): 97 METS: --- Stage: RECOVERY Duration (min): 0 min : 42 sec Speed (mph): 0.0 Grade (%): 0 HR (bpm): 138 SBP (mmHg): 177 DBP (mmHg): 83 METS: --- Stage: RECOVERY Duration (min): 1 min : 42 sec Speed (mph): 0.0 Grade (%): 0 HR (bpm): 97 SBP (mmHg): 177 DBP (mmHg): 83 METS: --- Stage: RECOVERY Duration (min): 2 min : 42 sec Speed (mph): 0.0 Grade (%): 0 HR (bpm): 86 SBP (mmHg): 177 DBP (mmHg): 83 METS: --- Stage: RECOVERY Duration (min): 3 min : 6 sec Speed (mph): 0.0 Grade (%): 0 HR (bpm): 87 SBP (mmHg): 204 DBP (mmHg): 74 METS: --- Rest HR: 75 bpm Peak HR: 160 bpm Rest Sys BP: 112 mmHg Peak Sys BP: 204 mmHg Max Pred HR: 182 bpm % Max Pred HR: 88 % Target HR: 155 bpm Max RPP: 32,640 bpm*mmHg Tinajero Score: 1 Termination Reason: Reached target heart rate or workload Cardiac Symptoms: Shortness of breath Max ST Seg Deviation: 0.70 mm Total Time: 4 min : 17 sec Rest Mc BP: 77 mmHg Peak Mc BP: 74 mmHg Angina Score: None Total METS: 6.8 Resting ECG Sinus rhythm. Stress ECG No ST changes. Arrhythmias None. Report Signatures Stress ECG Echo
--- OUTSIDE RECORDS SUMMARY | 2024-06-23 09:14 | XMS_ITS | Clinical Summary ---
Author Organization [facility] ([facility]) [employer] [place] Address [address] [place] [address] Care Team Providers Care Rack Puncher Name Role Phone Yelena James MD Primary Care Provider [phone] Allergies Active Allergy Reactions Criticality Noted Date [...] 3 Active fluticasone propionate (FLONASE) 50 mcg/spray [place], Suspension nasal inhaler Administer 2 Sprays in each nostril daily. 16 Gram 4 Active pantoprazole (PROTONIX) 40 mg Tablet, Delayed Release (E.C.)Indication s:Other acute pancreatitis without infection or necrosis TAKE 1 TABLET DAILY 60 Tablet 5 5 Active lisinopriL (PRINIVIL) 10 mg tablet Take 1 Tablet (10 mg) by mouth daily. 90 Tablet 5 Active DULoxetine (CYMBALTA) 30 mg Capsule, Delayed Release(E.C.)Ind ications:Irritab ility Take 1 Capsule (30 mg) by mouth daily. 90 Capsule 5 Active DULoxetine (CYMBALTA) 30 mg Capsule, Delayed Release(E.C.)Ind ications:Irritab ility Take 1 Capsule (30 mg) by mouth daily. 90 Capsule 5 025 Discontin ued(Reord er) lisinopriL (PRINIVIL) 10 mg tablet Take 1 Tablet (10 mg) by mouth daily. 90 Tablet 5 025 Discontin ued(Reord er) Active Problems Problem Noted Date Diagnosed Date History of adverse response to anesthesia - see overview 07/202308/30/2023 Overview (08/30/2023): 07/2023 with EUS-- Poor tolerance to anesthesia due to high propofol requirements and respiratory distress that was characterized by hypoxia and persistent coughing. This can be seen prior history of smoking tobacco, marijuana, and/ or alcohol use history. History of stroke without residual deficits --04/01/2023 Overview (04/01/2023): 12/2021. Stroke Summary per neurology [...] Anticardiolipin abs neg, LAC neg, FVL and O1Wbylgsogfdt negative Prediabetes 03/23/2023 Vitamin D deficiency 03/23/2023 [...] Encounters Date Type Department Care Team Description 06/08/[address] [facility] [place] [address] [place] [phone] Emma Houser, QUINN Thyroid function test abnormal (Primary Dx) 06/08/2024 Results Follow-Up [facility] [place] [address] [place] [phone] Emma Houser, QUINN HEMOGLOBIN A1C, MICROALBUMIN/CREATIN INE RATIO, RANDOM UR, URINALYSIS WITH REFLEX MICROSCOPIC, Additional followed-up results: 4 06/05/2024 9:30 AM CDT Office Visit [facility] [place] [address] [place] [id number] Emma Houser ANP Chest pain, unspecified type (Primary Dx); Primary hypertension; Prediabetes; Vitamin D deficiency; Hyperlipidemia LDL goal <70; Tobacco use; History of stroke without residual deficits --12/2021; consult; Situational stress 06/05/[address] [facility] - [facility] [address] [facility] [facility] [address] [place] [address] Talia Padilla 06/05/[address] [facility] [address] [place] [address] Emma Houser ANP Follow Up (On HEBERT inhibitor for hypertension and considering . ) 06/01/2024 8:40 AM CDT Procedure visit [facility] [address] [place] [place] [address] Issue of repeat prescription (Primary Dx) 05/31/[address] [facility] [address] [place] [address] Yelena James MD Irritability 05/17/2024 External Device Data [facility] ABSTRACTION Provider, Abstract 05/17/2024 External Device Data [facility] ABSTRACTION Provider, Abstract 05/06/2024 External Device Data [place] ABSTRACTION Provider, Abstract 05/05/2024 External Device Data [place] ABSTRACTION Provider, Abstract 05/02/2024 External Device Data [place] ABSTRACTION Provider, Abstract 04/06/2024 2:00 PM BATTALION CHIEF Office Visit [facility] [address] [place] [place] [address] Yelena James MD Acute cough (Primary Dx); Declined influenza vaccine; Gastroesophageal reflux disease without esophagitis; Hyperlipidemia LDL goal <70 04/04/[address] [facility] [address] [place] [address] Yelena James MD Needs Appointment from Last 3 Months Immunizations Immunization Administration Dates Next Due (ADACEL/BOOSTRIX)(10 YR UP) TDAP VACCINE, 0.5ML, IM 03/16/2023,03/01/2015 (PFIZER)(12 YR UP) COVID-19 VACCINE - EMERGENCY USE AUTHORIZATION, MRNA, [id number](PF) 30 MCG/0.3 ML IM SUSP 01/03/2022 (PNEUMOVAX [...] Sign Reading Time Taken Comments Blood Pressure 126/78 06/05/2024 9:23 AM CDT Pulse 93 06/05/2024 9:23 AM CDT Temperature 36.9 C (98.5 F) 06/05/2024 9:23 AM CDT Respiratory Rate 18 06/05/2024 9:23 AM CDT Oxygen Saturation 97% 06/05/2024 9:23 AM CDT Inhaled Oxygen Concentration - - Weight 109.3 kg (241 lb) 06/05/2024 9:23 AM CDT Height 167.6 cm (5' 6 ) 06/05/2024 9:23 AM CDT Body Mass Index 38.9 06/05/2024 9:23 AM CDT Plan of Treatment Upcoming Encounters Date Type Department Care Team (Late st Contact Info) Description 09/05/2024 8:00 AM CDT Procedure visit [facility] Register My Info [place] [address] [facility] [facility] [place] [address] Health Maintenance Due Date Last Done Comments HEPATITIS B VACCINES (1 of 3 - 19+ 3-dose series) 2005 HPV/Cotest (21-29) 2007 CERVICAL CANCER SCREENING 02/27/2016 HPV/Cotest (30-65) 02/27/2016 PAP SMEAR 02/27/2016 COVID-19 Vaccine ( season) 2023 01/03/2022 Preventative Visit- Commercial 03/01/2024 Pre-Diabetes and Diabetes Screening 06/06/2027 06/05/2024, 03/18/2023, 11/11/2022, Additional history exists DTAP/TDAP/TD VACCINES (3 - Td or Tdap) 03/16/2033 03/16/2023, 03/01/2015 INFLUENZA VACCINE Completed 04/06/2024, , 01/05/2022, Additional history exists HPV VACCINES Aged Out No longer eligi ble based on patient's age to complete this topic Procedures Procedure Name Priority Date/Time Associated Diagnosis Comments LIPID PANEL Routine 06/05/2024 10:15 AM CDT Hyperlipidemia LDL goal <70 COMPREHENSIVE METABOLIC PANEL Routine 06/05/2024 10:15 AM CDT Hyperlipidemia LDL goal <70 CBC WITH DIFFERENTIAL Routine 06/05/2024 10:15 AM CDT Hyperlipidemia LDL goal <70 TSH REFLEXIVE Routine 06/05/2024 10:15 AM CDT Hyperlipidemia LDL goal <70 URINALYSIS W/REFLEX MICROSCOPIC Routine 06/05/2024 10:15 AM CDT Hyperlipidemia LDL goal <70 MICROALBUMIN/CREATININ E RATIO, RANDOM UR Routine 06/05/2024 10:15 AM CDT Hyperlipidemia LDL goal <70 HEMOGLOBIN A1C Routine 06/05/2024 10:15 AM CDT Prediabetes MI ECG ROUTINE ECG W/LEAST 12 LDS W/I&R Routine 06/05/2024 9:30 AM CDT Chest pain, unspecified type POC INFLUENZA A AND B ANTIGEN Routine 04/06/2024 2:45 PM BATTALION CHIEF Acute cough from Last 3 Months Results * (ABNORMAL) TSH REFLEXIVE (06/05/2024 10:15 AM CDT) TSH 0.39(L) mIU/L [facility] Comment: Reference Range > or = 20 Years 0.40-4.50 Ranges First trimester 0.26-2.66 Second trimester 0.55-2.73 Third trimester 0.43-2.91 T4 FREE 1.1 0.8 - 1.8 ng/dL [facility] Comment: Test Performed at: [facility] [address] [place] [address] Simba Turcios MD Blood 06/05/2024 10:1 5 AM CDT 06/06/2024 4:21 AM CDT us Emma Houser [facility] CHEMISTRY ORDERABLES Final R esult [facility] [phone] [facility] [address] [place] [address] * MICROALBUMIN/CREATININE RATIO, RANDOM UR (06/05/2024 10:15 AM CDT) Creatinine, Urine 150 20 - 275 mg/dL [facility] MICROALBUMIN, URINE 0.3 See Note: mg/dL [facility] Comment: Reference Range: Reference Range Not established MICROALBUMIN/CREAT RATIO, UR 2 <30 mg/g creat [facility] Comment: The ADA defines abnormalities in albumin excretion as follows: Albuminuria Category Result (mg/g creatinine) Normal to Mildly increased <30 Moderately increased 30-299 Severely increased > OR = 300 The ADA recommends that at least two of three specimens collected within a 3-6 month period be abnormal before considering a patient to be within a diagnostic category. Test Performed at: [facility] [address] [address] Simba Turcios MD Urine URINE SPECIMEN OBTAINED BY CLEAN CATCH PROCEDURE / Unknown 06/05/2024 10:15 AM CDT 06/06/2024 4:20 AM CDT us Emma Houser ANP URINE ORDERABLES Final Resul t [facility] [phone] [facility] [address] [place] [address] * (ABNORMAL) CBC WITH DIFFERENTIAL (06/05/2024 10:15 AM CDT) WBC 9.5 3.8 - 10.8 Thousand/u L [facility] RBC 5.28(H) 3.80 - 5.10 Million/uL [facility] HEMOGLOBIN 15.9(H) 11.7 - 15.5 g/dL [facility] HEMATOCRIT 48.3(H) 35.0 - 45.0 % [facility] MCV 91.5 80.0 - 100.0 fL [facility] MCH 30.1 27.0 - 33.0 pg [facility] MCHC 32.9 32.0 - 36.0 g/dL [facility] Comment: For adults, a slight decrease in the calculated MCHC value (in the range of 30 to 32 g/dL) is most likely not clinically significant; however, it should be interpreted with caution in correlation with other red cell parameters and the patient's clinical condition. RDW 13.2 11.0 - 15.0 % [facility] PLATELETS 308 140 - 400 Thousand/u L [facility] MPV 10.2 7.5 - 12.5 fL [facility] NEUTROPHIL ABSOLUTE 5,349 1,500 - 7,800 cells/uL [facility] LYMPHOCYTE ABSOLUTE 3,287 850 - 3,900 cells/uL [facility] MONOCYTE ABSOLUTE 485 200 - 950 cells/uL [facility] EOSINOPHIL ABSOLUTE 295 15 - 500 cells/uL [facility] BASOPHILS ABSOLUTE 86 0 - 200 cells/uL [facility] NEUTROPHIL 56.3 % [facility] LYMPHOCYTES 34.6 % [facility] MONOCYTE 5.1 % [facility] EOSINOPHILS 3.1 % [facility] BASOPHILS 0.9 % [facility] Comment: Test Performed at: [facility] [place] [address] Simba Turcios MD Blood 06/05/2024 10:1 5 AM CDT 06/06/2024 4:21 AM CDT us Emma Houser ANP HEMATOLOGY ORDERABLES Final Result [facility] [phone] [facility] [place] [address] * (ABNORMAL) URINALYSIS WITH REFLEX MICROSCOPIC (06/05/2024 10:15 AM CDT) COLOR UA YELLOW YELLOW [facility] CLARITY UA CLOUDY(A) CLEAR [facility] SPECIFIC GRAVITY UA 1.022 1.001 - 1.035 [facility] PH UA 5.5 5.0 - 8.0 [facility] GLUCOSE UA NEGATIVE NEGATIVE [facility] BILIRUBIN UA NEGATIVE NEGATIVE [facility] KETONES UA NEGATIVE NEGATIVE [facility] BLOOD UA TRACE(A) NEGATIVE [facility] PROTEIN UA NEGATIVE NEGATIVE [facility] NITRITE UA NEGATIVE NEGATIVE [facility] LEUKOCYTE ESTERASE UA NEGATIVE NEGATIVE [facility] WBC UA 0-5 < OR = 5 /HPF [facility] RBC UA NONE SEEN < OR = 2 /HPF [facility] EPITHELIAL CELLS, URINE 6-10(A) < OR = 5 /HPF [facility] BACTERIA UA FEW(A) NONE SEEN /HPF [facility] HYALINE CAST NONE SEEN NONE SEEN /LPF [facility] URINE NOTE [facility] Comment: This urine was analyzed for the presence of WBC, RBC, bacteria, casts, and other formed elements. Only those elements seen were reported. Test Performed at: [facility] [address] [place] [address] Simba Turcios MD Urine URINE SPECIMEN OBTAINED BY CLEAN CATCH PROCEDURE / Unknown 06/05/2024 10:15 AM CDT 06/06/2024 4:20 AM CDT us Emma Houser ANP URINE ORDERABLES Final Resul t [facility] [phone] [address] * (ABNORMAL) HEMOGLOBIN A1C (06/05/2024 10:15 AM CDT) HEMOGLOBIN A1C 6.2(H) <5.7 % of total Hgb [facility] Comment: For someone without known diabetes, [...] diabetes for children. ESTIMATED AVERAGE GLUCOSE (MG/DL) 131 mg/dL [facility] ESTIMATED AVERAGE GLUCOSE (MMOL/L) 7.3 mmol/L [facility] Comment: Test Performed at: [facility] [address] [place] [address] Simba Turcios MD Blood 06/05/2024 10:1 5 AM CDT 06/06/2024 4:21 AM CDT us Emma Hosuer ANP CHEMISTRY ORDERABLES Final R esult [facility] [phone] [facility] [address] [place] [address] * (ABNORMAL) LIPID PANEL (06/05/2024 10:15 AM CDT) CHOLESTEROL 243(H) <200 mg/dL [facility] HDL 38(L) > OR = 50 mg/dL [facility] TRIGLYCERIDE 152(H) <150 mg/dL [facility] LDL CALCULATED 175(H) mg/dL (calc) [facility] Comment: Reference range: <100 Desirable range <100 mg/dL for primary prevention; <70 mg/dL for patients with CHD or diabetic patients with > or = 2 CHD risk factors. LDL-C is now calculated using the Pasquale-Milind calculation, which is a validated novel method providing better accuracy than the Friedewald equation in the estimation of LDL-C. Pasquale SS et al. GUERDA. 2013;310(19): 5535-0633 (http://education.Prospectvision.adMingle - Share Your Passion!/faq/KJR111) CHOL/HDL RATIO 6.4(H) <5.0 (calc) [facility] NON-HDL CHOLESTEROL 205(H) <130 mg/dL (calc) [facility] Comment: For patients with diabetes plus 1 major ASCVD risk factor, treating to a non-HDL-C goal of <100 mg/dL (LDL-C of <70 mg/dL) is considered a therapeutic option. Test Performed at: [facility] [address] [place] [address] Simba Turcios MD Blood 06/05/2024 10:1 5 AM CDT 06/06/2024 4:21 AM CDT us Emma Houser ANP CHEMISTRY ORDERABLES Final R esult [facility] [phone] [facility] [address] [place] [address] * COMPREHENSIVE METABOLIC PANEL (06/05/2024 10:15 AM CDT) GLUCOSE 95 65 - 99 mg/dL [facility] Comment: Fasting reference interval BUN 18 7 - 25 mg/dL [facility] CREATININE 0.85 0.50 - 0.97 mg/dL [facility] GFR 90 > OR = 60 mL/min/1. 73m2 [facility] BUN/CREAT RATIO SEE NOTE: 6 - 22 (calc) [facility] Comment: Not Reported: BUN and Creatinine are within reference range. SODIUM 141 135 - 146 mmol/L [facility] POTASSIUM 4.4 3.5 - 5.3 mmol/L [facility] CHLORIDE 106 98 - 110 mmol/L [facility] CO2 29 20 - 32 mmol/L [facility] CALCIUM 9.6 8.6 - 10.2 mg/dL [facility] TOTAL PROTEIN 6.8 6.1 - 8.1 g/dL [facility] ALBUMIN 4.3 3.6 - 5.1 g/dL [facility] GLOBULIN 2.5 1.9 - 3.7 g/dL (calc) [facility] ALBUMIN/GLOBULIN RATIO 1.7 1.0 - 2.5 (calc) [facility] BILIRUBIN TOTAL 0.4 0.2 - 1.2 mg/dL [facility] ALKALINE PHOSPHATASE 59 31 - 125 U/L [facility] AST 19 10 - 30 U/L [facility] ALT 23 6 - 29 U/L [facility] Comment: Test Performed at: [facility] [address] [place] [address] Simba Turcios MD Blood 06/05/2024 10:1 5 AM CDT 06/06/2024 4:21 AM CDT us Emma BALL CHEMISTRY ORDERABLES Final R esult [facility] [phone] [facility] [address] [facility] [place] [address] * [place] ECG ROUTINE ECG W/LEAST 12 LDS W/I&R (06/05/2024 9:30 AM CDT) Narrative [facility] [place] - 06/05/2024 9:30 AM CDT Emma Houser ANP 06/05/2024 3:12 PM EKG 12-LEAD Date/Time: 06/05/2024 9:30 AM Performed by: Emma Houser ANP Authorized by: Emma Houser ANP Previous ECG: no previous ECG available Rhythm: sinus rhythm and bundle branch block Rhythm comments: V1 and 2, Right. Rate: normal Conduction: conduction normal ST Segments: ST segments normal Other: no other findings Q waves: II Clinical impression: non-specific ECG Comments: No ischemic changes Procedure Note Emma Houser ANP - 06/05/2024 9:48 AM CDT HISTORY OF PRESENT ILLNESS Guerita [place], a 39 y.o. female presents with a Chief Complaint ofCholesterol Problem (Patient wants to discuss cholesterol medication.) andCounselor referral (Patient wants to discuss getting a [facility] so she can pursue fertility treatments.) Reports tight, pulling senation in R anterior neck extending down to aboveR breast area. Location R lateral to sternum. Notes more when taking carine deep breath. Occurred last week when she was more active around house.Going 2 weeks. Last episode 4-5 days ago after smoking weed, coughingvery hard when occurred. Hyperlipidemia- Had muscle aches with atorvastatin 80 mg. Resolved when stopped andreoccured with retrial. Eats less red meat and more chicken. Requestslipid check for lab status. Hopes to become , so not appropriatefor statin treatment at this time. Wishes to pursue fertility specialist for high risk women due to personalhistory of stroke in 2021. Was heavily vaping at the time. TOBACCO PACKING MACHINE OPERATOR hasrecommended specialist and she plans to contact them for a name. Tobacco abuse- Daily smoking, feels would be hard to quit with her mother moving in withshe and soon. All smoke. Does agree that wouldmotivate them all to quit. No trials of chantix or patches in past. REVIEW OF SYSTEMS Review of Systems Constitutional: Negative for appetite change and unexpected weightchange. HENT: Negative for trouble swallowing. Respiratory: Positive for chest tightness. Negative for cough, shortnessof breath and wheezing. Cardiovascular: Positive for chest pain. Gastrointestinal: Negative. Genitourinary: Negative. Musculoskeletal: Negative for myalgias. Neurological: Negative for dizziness and light-headedness. Psychiatric/Behavioral: Positive for dysphoric mood. Negative for sleepdisturbance. The patient is nervous/anxious (move of mother, issues withher step son and custody, anniversary of her step father's ). Objective PHYSICAL EXAM BP 126/78 (BP Location: Left arm, Patient Position (BP): Sitting, BP CuffSize: Large Adult) Pulse 93 Temp 98.5 F (36.9 C) (Tympanic) Resp 18 Ht 5' 6 (1.676 m) Wt 109.3 kg (241 lb) LMP 05/11/2024(Approximate) SpO2 97% BMI 38.90 kg/m Physical Exam Vitals reviewed. Constitutional: Appearance: She is well-developed. HENT: Head: Normocephalic. Right Ear: Hearing normal. Left Ear: Hearing normal. Mouth/Throat: Mouth: Mucous membranes are moist. Pharynx: Oropharynx is clear. Eyes: General: Lids are normal. No scleral icterus. Conjunctiva/sclera: Conjunctivae normal. Neck: Thyroid: No thyromegaly. Cardiovascular: Rate and Rhythm: Normal rate and regular rhythm. Pulses: Normal pulses. Carotid pulses are 2+ on the right side and 2+ on the left side. Heart sounds: Normal heart sounds. No murmur heard. Pulmonary: Effort: Pulmonary effort is normal. Breath sounds: Normal breath sounds. Abdominal: Palpations: Abdomen is soft. Tenderness: There is no abdominal tenderness. Musculoskeletal: Cervical back: Neck supple. Right lower leg: No edema. Left lower leg: No edema. Lymphadenopathy: Cervical: No cervical adenopathy. Skin: General: Skin is warm. Neurological: General: No focal deficit present. Mental Status: She is alert. Psychiatric: Mood and Affect: Mood normal. Speech: Speech normal. Behavior: Behavior normal. EKG 12-LEAD Date/Time: 06/05/2024 9:30 AM Performed by: Emma Houser ANP Authorized by: Emma Houser ANP Previous ECG: no previous ECGavailable Rhythm: sinus rhythm and bundle branch block Rhythm comments: V1 and 2, Right. Rate: normal Conduction: conduction normal ST Segments: ST segments normal Other: no other findings Q waves: II Clinical impression: non-specific ECG Comments: No ischemic changes Assessment ASSESSMENT and PLAN: 1. Chest pain, unspecified type (Primary) Rule out cardiac. May be broncial spasms. Multiple cardiac risk factors. - EKG 12-LEAD - STRESS ECHO EXERCISE; Future 2. Primary hypertension Stable. Continue meds. She will need to come off HEBERT if proceeds withfertility treatments. See documentation below and telephone encounter. 3. Prediabetes - HEMOGLOBIN A1C; Future - HEMOGLOBIN A1C 4. Vitamin D deficiency 5. Hyperlipidemia LDL goal <70 - LIPID PANEL; Future - COMPREHENSIVE METABOLIC PANEL; Future - CBC WITH DIFFERENTIAL; Future - TSH REFLEXIVE; Future - URINALYSIS WITH REFLEX MICROSCOPIC; Future - MICROALBUMIN/CREATININE RATIO, RANDOM UR; Future - MICROALBUMIN/CREATININE RATIO, RANDOM UR - URINALYSIS WITH REFLEX MICROSCOPIC - TSH REFLEXIVE - CBC WITH DIFFERENTIAL - COMPREHENSIVE METABOLIC PANEL - LIPID PANEL 6. Tobacco use Discussed chantix and patches as ways for cessation. Also WWT coaches.Will contact me when she is willing to consider this treatment. 7. History of stroke without residual deficits --12/2021 Stable on daily ASA 81 mg. And good BP control 8. consult Contact TOBACCO PACKING MACHINE OPERATOR for high risk provider . Hoping for . Discussed again via telephone current medications and hopes for . Reports has discussed fertility in past with TOBACCO PACKING MACHINE OPERATOR who referred to her thefertility specialist. Was told would be unable to become withoutassistance . She has not pursued but plans to do so soon. Advised must see us to discuss hypertension medication changes prior toany attempts at . She agrees. 9. Situational stress Offered support. FOLLOW UP Return in about 6 months (around 12/05/2024) for HTN. sooner based onreferrals and lab results. Appropriate medications prescribed and pt instructed in risks , benefitsand side effects. Appropriate patient instructions provided . See details in AVS Medications and options explained to include common side effects.Understanding of medications, course, diagnosis, and expectations wereexpressed by patient/guardian. Pt advised to call my office in one week if not contacted with any orderedtest results. QUINN Oneil 06/05/2024 [facility] [address] [address] Some of this encounter may have been transcribed using [employer] voice recognition without a human start up specialist.This report may or may not have been adjusted for typographical or medicaland syntax errors. us Emma BALL ECG ORDERABLES Final Result Performing Organization Address [facility] Co de Phone Number [facility] CLIA# [id number] [address] [address] * POC INFLUENZA A AND B ANTIGEN (04/06/2024 2:45 PM BATTALION CHIEF) INFLUENZA A AG POC Negative/Not Detected Negative/Not Detected [facility] [place] INFLUENZA B AG POC Negative/Not Detected Negative/Not Detected [facility] [place] INTERNAL KIT QC POC Pass Pass [facility] KIT LOT NUMBER POC [id number] [facility] [place] KIT EXP DATE POC 10/01/2024 [facility] [place] READ METHOD POC Instrument [facility] Upper Respiratory ANTERIOR NARES SWAB / Unknown 04/06/2024 2:45 PM BATTALION CHIEF us Yelena James MD POINT OF CARE TESTING Final Re sult Performing Organization Address [facility] Co de Phone Number [facility] CLIA# [id number] [address] [address] from Last 3 Months Insurance ALLEGIANCE OPEN ACCESS ALLEGIANCE OPEN ACCESS ALLEGIANCE OPEN ACCESS Care Teams Rack Puncher Relationship Specialty Start Date End Date Yelena James MD [address] [place] [address] [place] [address] PCP - General Internal Medicine 09/14/23
--- OUTSIDE RECORDS SUMMARY | 2024-06-23 09:14 | XMS_ITS | Clinical Summary ---
Author Organization [facility] al Address [address] [place] [address] Care Team Providers Care Communications Billing Analyst Name Role Phone Barry Romo MD Unavailable [phone] Yelena James MD Primary Care Provider [phone] Allergies No known active allergies Medications atorvastatin [...] total) by mouth daily before breakfast 4 Active Additional Information Patient not taking.Reported [...] Additional Information Patient not taking.Reported on 12/20/2023 benzonatate (TESSALON) 100 mg capsuleIndicati ons:Cough Take 1 capsule (100 mg total) by mouth 3 (three) times a day as needed for cough 15 capsule 5 Active Active Problems Problem Noted Date Diagnosed Date First degree AV block 05/11/2024 Acute pancreatitis 07/08/2023 History of stroke 05/18/2023 [...] Encounters Date Type Department Care Team Description 05/11/2024 11:44 AM CDT - 05/11/2024 1:32 PM CDT Emergency [facility] Emergency Department [address] [place] [phone] Rosalino Pickard MD Acute bronchitis, unspecified organism (Primary Dx) Discharge Disposition: Discharge to home or self care 03/29/2024 4:16 PM MEAT SELECTOR - 03/29/2024 8:02 PM MEAT SELECTOR Emergency [facility] Emergency Department [address] [place] [address] Alvino Feng MD Abdominal pain (Primary Dx); [...] making you feel afraid or unsafe? Denies 05/11/2024 Comments Unknown Sex and Gender Information Value Date Recorded Sex Assigned at Not on file Legal Sex Female 8:29 AM MEAT SELECTOR Gender Identity Not on file Sexual Orientation Not on file Obstetrics History Last Filed Vital Signs Vital Sign Reading Time Taken Comments Blood Pressure 139/84 05/11/2024 1:30 PM CDT Pulse 84 05/11/2024 1:30 PM CDT Temperature 36.8 C (98.3 F) 05/11/2024 11:50 AM CDT Respiratory Rate 15 05/11/2024 1:30 PM CDT Oxygen Saturation 100% 05/11/2024 1:30 PM CDT Inhaled Oxygen Concentration - - Weight 112 kg (246 lb 14.6 oz) 05/11/2024 11:50 AM CDT Height 167.6 cm (5' 6 ) 12/20/2023 4:10 PM CDT Body Mass Index 39.85 12/20/2023 4:10 PM CDT Plan of Treatment [...] 01/03/2022, 07/19/2020, Additional history exists Influenza Vaccine (Season Ended) 2024 01/05/2022, 12/04/2020, 11/29/2019, Additional history exists DTaP/Tdap/Td Vaccine (3 - Td or Tdap) 03/16/2033 03/16/2023, 03/01/2015 HPV Vaccines Aged Out No longer eligi ble based on patient's age to complete this topic Procedures Procedure Name Priority Date/Time Associated Diagnosis Comments XR CHEST PA LATERAL 2 VIEWS ED 05/11/2024 12:02 PM CDT INFLUENZA A/B, RSV, AND COVID-19 PCR STAT 05/11/2024 11:47 AM CDT ECG 12-LEAD STAT 05/11/2024 10:31 AM CDT ECG 12-LEAD STAT 03/29/2024 6:[address] ABDOMEN PELVIS W CONTRAST ED 03/29/2024 6:15 PM MEAT SELECTOR TROPONIN I HIGH-SENSITIVITY SERIES (BASELINE, 2HR, 4HR, 6HR) STAT 03/29/2024 5:35 PM MEAT SELECTOR POCT HCG, URINE Routine 03/29/2024 4:39 PM MEAT SELECTOR URINALYSIS, MICROSCOPIC ONLY STAT 03/29/2024 4:34 PM MEAT SELECTOR URINALYSIS AND REFLEX TO MICROSCOPIC STAT 03/29/2024 4:34 PM MEAT SELECTOR EGFR STAT 03/29/2024 2:50 PM MEAT SELECTOR DIFFERENTIAL AUTO STAT 03/29/2024 2:5 0 PM MEAT SELECTOR LIPASE STAT 03/29/2024 2:50 PM MEAT SELECTOR COMPREHENSIVE METABOLIC PANEL STAT 03/29/2024 2:50 PM MEAT SELECTOR CBC WITH AUTO DIFFERENTIAL STAT 03/29/2024 2:50 PM MEAT SELECTOR from Last 3 Months Results * XR Chest PA Lateral 2 Views (05/11/2024 12:02 PM CDT) Anatomical Region Laterality Modality Body, Chest N/A Computed Radiogr aphy 05/11/2024 12:5 2 PM CDT Impressions 05/11/2024 12:52 PM CDT Comparison is made to prior study dated 05/17/2023. There is mild left lower lobe atelectasis, without focal consolidation or pulmonary edema. No pleural effusion or pneumothorax. Heart and mediastinal contours are within normal limits. Electronically signed by: Juan Woods M.D. Narrative 05/11/2024 12:52 PM CDT EXAMINATION: 2 view chest radiograph Procedure Note Juan Woods MD - 05/11/2024 EXAMINATION: 2 view chest radiograph IMPRESSION: Comparison is made to prior study dated 05/17/2023. There is mild left lower lobe atelectasis, without focal consolidation or pulmonary edema. No pleural effusion or pneumothorax. Heart and mediastinal contours are within normal limits. Electronically signed by: Juan Woods M.D. Rosalino Pickard MD IMG XR PROCEDURES Final R esult * Influenza A/B, RSV, and COVID-19 PCR Nasopharyngeal (05/11/2024 11:47 AM CDT) COVID-19 RNA Negative Negative [facility] Influenza A RNA Negative Negative [facility] Influenza B RNA Negative Negative [facility] RSV RNA Negative Negative [facility] Comment: Interpretive data: Testing performed by [facility] ([phone]). This test is performed using the [employer] Xpert Xpress CoV-2/Flu/RSV plus assay. This is a multiplex, real-time reverse transcriptase PCR assay intended for the qualitative detection of nucleic acid from SARS-CoV-2, influenza A, influenza B, and respiratory syncytial virus. This assay has been cleared by the [place] Food and Drug administration. The performance characteristics have been verified by the [facility]. Results must be considered in the clinical context, and a negative result does not rule out infection. Interpretive Data last revised 2023 Nasopharyngeal 05/11/2024 11 :47 AM CDT 05/11/2024 12:09 PM CDT Narrative [facility] - 05/11/2024 1:12 PM CDT Is the Patient experiencing symptoms consistent with COVID?->No Rosalino [place]ard MD LAB MICROBIOLOGY - GENERA L ORDERABLES Final Result [facility] Department [place] [address] [facility] * ECG 12-LEAD (05/11/2024 10:31 AM CDT) Narrative [facility] - 05/11/2024 10:31 AM CDT Jak Reyna MD 05/11/2024 10:36 AM ECG 12 lead Date/Time: 05/11/2024 10:31 AM Performed by: Jak Reyna MD Authorized by: Guy Erazo MD Rate: ECG rate: 72 ECG rate assessment: normal Rhythm: Rhythm: sinus rhythm Ectopy: Ectopy: none QRS: QRS axis: Normal QRS intervals: Normal Conduction: Conduction: abnormal Abnormal conduction: 1st degree Abnormal conduction comment: OR [address] segments: ST segments: Normal T waves: T waves: non-specific and inverted Inverted: II, III, aVF, V3, V4, V5 and V6 Previous ECG: Previous ECG: Compared to current Date of previous EC03/25/2024 Similarity: No change Interpretation: Interpretation: No significant change Recommended Follow-up: Recommended follow up: further workup in the ED Procedure Note Jak Reyna MD - 05/11/2024 10:31 AM CDT Procedure ECG 12 lead Date/Time: 05/11/2024 10:31 AM Performed by: Jak Reyna MD Authorized by: Guy Erazo MD Rate: ECG rate: 72 ECG rate assessment: normal Rhythm: Rhythm: sinus rhythm Ectopy: Ectopy: none QRS: QRS axis: Normal QRS intervals: Normal Conduction: Conduction: abnormal Abnormal conduction: 1st degree Abnormal conduction comment: OR [address] segments: ST segments: Normal T waves: T waves: non-specific and inverted Inverted: II, III, aVF, V3, V4, V5 and V6 Previous ECG: Previous ECG: Compared to current Date of previous EC03/25/2024 Similarity: No change Interpretation: Interpretation: No significant change Recommended Follow-up: Recommended follow up: further workup in the ED Jak Reyna MD 05/11/24 1036 us Rosalino [place]ard MD ECG ORDERABLES Final Res ult [facility] * ECG 12-LEAD (03/29/2024 6:49 PM MEAT SELECTOR) Narrative [facility] - 03/29/2024 6:49 PM MEAT SELECTOR Alvino Feng MD 03/29/2024 6:49 PM ECG [...] in the ED Alvino Feng MD 03/29/24 [id number] Xenia Espinoza MD ECG ORDERABLES Suha l Result [facility] * CT Abdomen Pelvis W Contrast (03/29/2024 6:15 PM MEAT SELECTOR) Anatomical Region Laterality Modality Body N/A Computed Tomogra phy 03/29/2024 6:30 PM MEAT SELECTOR Impressions 03/29/2024 6:36 PM ME[address] No CT to explain the patient's abdominal pain. No evidence of acute process in the abdomen or pelvis. Dictated by: Gregory Graham MD The radiology attending physician has personally reviewed this study, and had reviewed and/or edited this written report and agrees with it. Electronically signed by: Frederick Nazario M.D. Narrative 03/29/2024 6:36 PM MEAT SELECTOR EXAMINATION: Computed tomography of the abdomen and [...] (baseline, 2hr, 4hr, 6hr) (03/29/2024 5:35 PM MEAT SELECTOR) [facility] Trop I hs <4 <=17 ng/L Comment: Interpretive Data For further hscTnI resources including the diagnostic algorithm and an aid in interpretation, copy and paste this link: https://bjhlab.testcatalog.org/show/[email or web address] Current Interpretive Data last revised 2019. Blood 03/29/2024 5:35 PM MEAT SELECTOR 03/29/2024 5:47 PM MEAT SELECTOR Result [facility] Xenia Espinoza MD LAB BLOOD ORDERABLES Final Result [facility] Department [place] [address] * POCT hCG, urine (03/29/2024 4:39 PM MEAT SELECTOR) [facility] HCG, ur, POC Negative Negative Lot Number [id number] QC Backgroud Clear Acceptable QC Control Line Acceptable Urine 03/29/2024 4:39 PM MEAT SELECTOR Result [facility] Alvino Feng MD POINT OF CARE TEST ORDERABLE S Final Result * (ABNORMAL) Urinalysis reflex to microscopic (03/29/2024 4:34 PM MEAT SELECTOR) [facility] Color, ur Yellow Yellow Clarity, ur Clear Clear [facility] Specific gravity, ur 1.035(H) 1.003 - 1.030 [facility] pH, urine 6.5 [facility] Comment: Interpretive Data U rine pH is affected by diet, medications, systemic acid-base disturbances, and renal tubular function. pH may affect urinary stone formation. For example, urine pH below 6.0 may help reduce the tendency for calcium phosphate stones and pH greater than 6.0 may reduce the tendency for uric acid stone formation. Source: [facility] Current Interpretive Data was last revised on 2017 Protein, ur ql Trace Negative [facility] [place] Glucose, ur ql Negative Negative [facility] [place] Ketones, ur Negative Negative [facility] Bilirubin, ur Negative Negative [facility] Blood, ur 2+(A) Negative [facility] [place] Urobilinogen, ur 2.0(A) <2.0 mg/dL [facility] Nitrite, ur Negative Negative [facility] Leukocyte esterase, ur Negative Negative [facility] UA reflex comment Reflex to microscopic UA will be performed. [facility] Urine 03/29/2024 4:34 PM MEAT SELECTOR 03/29/2024 4:47 PM MEAT SELECTOR us Alvino Feng MD LAB URINE ORDERABLES Final R esult Performing Organization Address [facility] Co de Phone Number [facility] [place] [employer] [address] * (ABNORMAL) Urinalysis, microscopic only (03/29/2024 4:34 PM MEAT SELECTOR) WBC, ur 0-5 0 - 5 /HPF RBC, ur 6-10(A) 0 - 2 /HPF [facility] Epithelial cells, squamous, ur 1-5 0 - 5 /HPF [facility] Bacteria, ur 2+(A) [facility] Mucous, ur Present(A) [facility] Urine 03/29/2024 4:34 PM MEAT SELECTOR 03/29/2024 4:47 PM MEAT SELECTOR us Alvino Feng MD LAB URINE ORDERABLES Final R esult Performing Organization Address [facility] Co de Phone Number [facility] [place] [address] * eGFR (03/29/2024 2:50 PM MEAT SELECTOR) Pathologist [facility] eGFR 75 >=60 mL/min/1. 73 m2 Comment: [...] last reviewed 2020. Blood 03/29/2024 2:50 PM MEAT SELECTOR 03/29/2024 3:04 PM MEAT SELECTOR us Alvino Feng MD LAB BLOOD ORDERABLES Final R esult [facility] Department [place] [address] * (ABNORMAL) Differential, auto (03/29/2024 2:50 PM MEAT SELECTOR) Pathologist [facility] Neutrophil abs 4.8 1.5 - 6.5 K/cumm Imm gran abs 0.0 0.0 - 0.1 K/cumm [facility] Lymphocyte abs 3.6(H) 0.8 - 3.3 K/cumm [facility] Monocyte abs 0.6 0.2 - 0.8 K/cumm [facility] Eosinophil abs 0.3 0.0 - 0.5 K/cumm [facility] Basophil abs 0.1 0.0 - 0.1 K/cumm [facility] Neutrophil pct 50.6 % [facility] Comment: Interpretive Data Percent cell count reference ranges are not reported, since discordance with absolute values may lead to misinterpretation of CBC data. Current Interpretive Data was last revised on 2017. Imm gran pct 0.3 % [facility] [place] [facility] Comment: Interpretive Data Percent cell count reference ranges are not reported, since discordance with absolute values may lead to misinterpretation of CBC data. Current Interpretive Data was last revised on 2017. Lymphocyte pct 38.1 % [facility] [place] Comment: Interpretive Data Percent cell count reference ranges are not reported, since discordance with absolute values may lead to misinterpretation of CBC data. Current Interpretive Data was last revised on 2017. Monocyte pct 6.7 % [facility] Comment: Interpretive Data Percent cell count reference ranges are not reported, since discordance with absolute values may lead to misinterpretation of CBC data. Current Interpretive Data was last revised on 2017. Eosinophil pct 3.2 % [facility] Comment: Interpretive Data Percent cell count reference ranges are not reported, since discordance with absolute values may lead to misinterpretation of CBC data. Current Interpretive Data was last revised on 2017. Basophil pct 1.1 % [facility] Comment: Interpretive Data Percent cell count reference ranges are not reported, since discordance with absolute values may lead to misinterpretation of CBC data. Current Interpretive Data was last revised on 2017. Blood 03/29/2024 2:50 PM MEAT SELECTOR 03/29/2024 3:04 PM MEAT SELECTOR us Alvino Feng MD LAB BLOOD ORDERABLES Final R esult [facility] Department [place] [address] * CBC with auto differential (03/29/2024 2:50 PM MEAT SELECTOR) WBC 9.5 3.8 - 9.9 K/cumm Hgb 14.4 11.9 - 15.5 g/dL [facility] Hct 42.1 35.6 - 45.5 % [facility] Plt 269 150 - 400 K/cumm [facility] MPV 9.8 9.1 - 12.3 fL [facility] RBC 4.77 3.90 - 5.20 M/cumm [facility] MCV 88.3 81.3 - 96.4 fL [facility] MCH 30.2 27.1 - 33.3 pg [facility] MCHC 34.2 32.3 - 35.7 g/dL [facility] RDW CV 13.0 11.1 - 14.9 % [facility] RDW SD 42.4 35.7 - 48.1 fL [facility] NRBC abs 0.00 0.00 - 0.01 K/cumm [facility] Blood Venous blood specimen / Unknown 03/29/2024 2:50 PM MEAT SELECTOR 03/29/2024 3:04 PM MEAT SELECTOR us Alvino Feng MD LAB BLOOD ORDERABLES Final R esult Performing Organization Address City/[facility]/ZIP Co de Phone Number [facility] Department [place] [address] * Lipase (03/29/2024 2:50 PM MEAT SELECTOR) [facility] Lipase 25 10 - 99 Units/L Blood Venous blood specimen / Unknown 03/29/2024 2:50 PM MEAT SELECTOR 03/29/2024 3:04 PM MEAT SELECTOR Alvino Feng MD LAB BLOOD ORDERABLES Final R esult Performing Organization Address City/[facility]/ZIP Co de Phone Number [facility] Department [place] [address] * Comprehensive metabolic panel (03/29/2024 2:50 PM MEAT SELECTOR) [facility] Sodium 141 135 - 145 mmol/L Potassium, pl 4.1 3.3 - 4.9 mmol/L [facility] Chloride 107 97 - 110 mmol/L [facility] CO2 27 22 - 32 mmol/L [facility] Anion gap 7 2 - 15 mmol/L [facility] BUN 15 6 - 25 mg/dL [facility] Creatinine 0.99 0.60 - 1.10 mg/dL [facility] Glucose 115 70 - 199 mg/dL [facility] Comment: Interpretive Data Fasting glucose >/= [...] classification and Diagnosis of Diabetes Diabetes Care 202; 46: S19-S40. Current interpretive data was last revised 2022. Calcium 9.5 8.5 - 10.3 mg/dL [facility] Bilirubin, total 0.2 0.1 - 1.2 mg/dL [facility] Protein, pl 6.8 6.5 - 8.5 g/dL [facility] Albumin 4.1 3.5 - 5.0 g/dL [facility] Alk phos 63 40 - 130 Units/L [facility] ALT 31 7 - 45 Units/L [facility] AST 33 10 - 45 Units/L [facility] Blood 03/29/2024 2:50 PM MEAT SELECTOR 03/29/2024 3:04 PM MEAT SELECTOR us Alvino Feng MD LAB BLOOD ORDERABLES Final R esult [facility] [place] [address] from Last 3 Months Insurance [employer]ESS Advance Directives For more information, please contact: [phone] * Full Code (Latest Code Status on File) Date Activated Date Inactivated Comments 08/09/2023 10:54 AM 08/09/2023 4:33 PM * Full Code Date Activated Date Inactivated Comments 05/18/2023 12:36 AM 05/20/2023 6:57 PM * Full Code Date Activated Date Inactivated Comments 01/04/2022 11:40 PM 01/05/2022 10:09 PM Care Teams Communications Billing Analyst Relationship Specialty [place] [address] [place] [address] PCP - General Internal Medicine 03/29/24 Barry Romo MD [address] [facility] [address] [place] [address] 01/03/22
--- OUTSIDE RECORDS SUMMARY | 2024-06-23 09:14 | XMS_ITS | Encounter Summary ---
Author Organization [facility] Address [address] [address] Care Team Providers Care Ebd Special Education Teacher Name Role Phone Barry Romo MD Primary Care Provider Unknown, Notinfile Primary Care Provider Unavail able Barry Romo MD Unavailable [phone] Emma Houser NP Primary Care Provider [phone] Yelena James MD Primary Care Provider [phone] Encounter Details Date Type Department Care Team (Late st Contact Info) Description 07/22/2016 Orders Only [facility] ProviderNora MD [address] [place] [address] Social History Tobacco Use Types Packs/Day Years Used Date Smoking Tobacco: Heavy Smoker Comments:Smoking History Pac ks/day: 1 Packs Alcohol Use Standard Drinks/Week Comments Yes 0 (1 standard drink = 0.6 oz pur e alcohol) Comments Unknown Sex and Gender Information Value Date Recorded Sex Assigned at Not on file 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
--- OUTSIDE RECORDS SUMMARY | 2024-06-23 09:14 | XMS_ITS | Referral Summary ---
Author Organization [facility] Address [address] [place] [address] Care Team Providers Care Architecture Internship Name Role Phone Barry Romo MD Unavailable [phone] Yelena James MD Primary Care Provider [phone] Encounters Date Type Department Care Team Description 05/11/2024 11:44 AM CDT - 05/11/2024 1:32 PM CDT Emergency [facility] Emergency Department [address] [place] [id number] Rosalino Pickard MD Acute bronchitis, unspecified organism (Primary Dx) Discharge Disposition: Discharge to home or self care 03/29/2024 4:16 PM PLASTER HELPER - 03/29/2024 8:02 PM [facility] Emergency [facility] Emergency Department [address] [place] [id number] Alvino Feng MD Abdominal pain (Primary Dx); [...] 4:23 AM CDT): Hx of CVA in 2022 without ongoing deficits. Etiology though to be [...] on file Legal Sex Female 8:29 AM PLASTER HELPER Gender Identity Not on file Sexual Orientation [...] CDT ECG 12-LEAD STAT 03/29/2024 6:[address] ABDOMEN PELVIS W CONTRAST ED 03/29/2024 6:15 PM PLASTER HELPER TROPONIN I HIGH-SENSITIVITY SERIES (BASELINE, 2HR, 4HR, 6HR) STAT 03/29/2024 5:35 PM PLASTER HELPER POCT HCG, URINE Routine 03/29/2024 4:39 PM PLASTER HELPER URINALYSIS, MICROSCOPIC ONLY STAT 03/29/2024 4:34 PM PLASTER HELPER URINALYSIS AND REFLEX TO MICROSCOPIC STAT 03/29/2024 4:34 PM PLASTER HELPER EGFR STAT 03/29/2024 2:50 PM PLASTER HELPER DIFFERENTIAL AUTO STAT 03/29/2024 2:5 0 PM PLASTER HELPER LIPASE STAT 03/29/2024 2:50 PM PLASTER HELPER COMPREHENSIVE METABOLIC PANEL STAT 03/29/2024 2:50 PM PLASTER HELPER CBC WITH AUTO DIFFERENTIAL STAT 03/29/2024 2:50 PM PLASTER HELPER from Last 3 Months Results * XR [...] COVID-19 PCR Nasopharyngeal (05/11/2024 11:47 AM CDT) Pathologist [facility] [place] COVID-19 RNA Negative Negative [facility] Influenza A RNA Negative Negative [facility] Influenza B RNA Negative Negative [facility] RSV RNA Negative Negative [facility] Comment: Interpretive data: Testing performed by [facility] ([phone]). This test is performed using the [employer] Xpert Xpress CoV-2/Flu/RSV plus assay. This is a multiplex, real-time reverse transcriptase PCR assay intended for the qualitative detection of nucleic acid from SARS-CoV-2, influenza A, influenza B, and respiratory syncytial virus. This assay has been cleared by the [place] Food and Drug administration. The performance characteristics have been verified by the [facility]. Results must be considered in the clinical context, and a negative result does not rule out infection. Interpretive Data last revised 2023 Nasopharyngeal 05/11/2024 11 :47 AM CDT 05/11/2024 12:09 PM CDT Narrative [facility] - 05/11/2024 1:12 PM CDT Is the Patient experiencing symptoms consistent with COVID?->No us Rosalino Pickard MD LAB MICROBIOLOGY - GENERA L ORDERABLES Final Result DON [facility] Department [place] [address] [facility] * ECG 12-LEAD (05/11/2024 10:31 AM CDT) Narrative [facility] - 05/11/2024 10:31 AM CDT Jak Reyna MD 05/11/2024 10:36 AM ECG 12 lead Date/Time: 05/11/2024 10:31 AM Performed by: Jak Reyna MD Authorized by: Guy Erazo MD Rate: ECG rate: 72 ECG rate assessment: normal Rhythm: Rhythm: sinus rhythm Ectopy: Ectopy: none QRS: QRS axis: Normal QRS intervals: Normal Conduction: Conduction: abnormal Abnormal conduction: 1st degree Abnormal conduction comment: [place] [address] segments: ST segments: Normal [...] Abnormal conduction: 1st degree Abnormal conduction comment: NC [address] segments: ST segments: Normal [...] Pickard MD ECG ORDERABLES Final Res ult Performing Organization Address [facility] Co de Phone Number [facility] * ECG 12-LEAD (03/29/2024 6:49 PM PLASTER HELPER) Narrative [facility] - 03/29/2024 6:49 PM PLASTER HELPER Alvino Feng MD 03/29/2024 6:49 PM ECG [...] in the ED Alvino Feng MD 03/29/24 1849 us Xenia Espinoza MD ECG ORDERABLES Suha l Result [facility] * CT Abdomen Pelvis W Contrast (03/29/2024 6:15 PM PLASTER HELPER) Anatomical Region Laterality Modality Body N/A Computed Tomogra phy 03/29/2024 6:30 PM PLASTER HELPER Impressions 03/29/2024 6:36 PM [address]ER HELPER No CT to explain the patient's abdominal pain. No evidence of acute process in the abdomen or pelvis. Dictated by: Gregory Graham MD The radiology attending physician has personally reviewed this study, and had reviewed and/or edited this written report and agrees with it. Electronically signed by: Frederick Nazario M.D. Narrative 03/29/2024 6:36 PM PLASTER HELPER EXAMINATION: Computed tomography of the abdomen and [...] (baseline, 2hr, 4hr, 6hr) (03/29/2024 5:35 PM PLASTER HELPER) Trop I hs <4 <=17 ng/L Comment: Interpretive Data For further hscTnI resources including the diagnostic algorithm and an aid in interpretation, copy and paste this link: https://bjhlab.testcatalog.org/show/[email or web address] Current Interpretive Data last revised 2019. Blood 03/29/2024 5:35 PM PLASTER HELPER 03/29/2024 5:47 PM PLASTER HELPER Xenia Espinoza MD LAB BLOOD ORDERABLES Final Result DON [facility] Department [place] [address] * POCT hCG, urine (03/29/2024 4:39 PM PLASTER HELPER) HCG, ur, POC Negative Negative Lot Number [id number] QC Backgroud Clear Acceptable QC Control Line Acceptable Urine 03/29/2024 4:39 PM PLASTER HELPER Alvino Feng MD POINT OF CARE TEST ORDERABLE S Final Result * (ABNORMAL) Urinalysis reflex to microscopic (03/29/2024 4:34 PM PLASTER HELPER) Color, ur Yellow Yellow Clarity, ur Clear Clear [facility] Specific gravity, ur 1.035(H) 1.003 - 1.030 [facility] pH, urine 6.5 [facility] Comment: Interpretive Data U rine pH is affected by diet, medications, systemic acid-base disturbances, and renal tubular function. pH may affect urinary stone formation. For example, urine pH below 6.0 may help reduce the tendency for calcium phosphate stones and pH greater than 6.0 may reduce the tendency for uric acid stone formation. Source: [facility] [email or web address] Current Interpretive Data was last revised on 2017 Protein, ur ql Trace Negative [facility] Glucose, ur ql Negative Negative [facility] Ketones, ur Negative Negative [facility] Bilirubin, ur Negative Negative [facility] Blood, ur 2+(A) Negative [facility] Urobilinogen, ur 2.0(A) <2.0 mg/dL [facility] Nitrite, ur Negative Negative [facility] Leukocyte esterase, ur Negative Negative [facility] UA reflex comment Reflex to microscopic UA will be performed. [facility] Urine 03/29/2024 4:34 PM PLASTER HELPER 03/29/2024 4:47 PM PLASTER HELPER Alvino Feng MD LAB URINE ORDERABLES Final R esult [facility] Department [place] [address] * (ABNORMAL) Urinalysis, microscopic only (03/29/2024 4:34 PM PLASTER HELPER) WBC, ur 0-5 0 - 5 /HPF RBC, ur 6-10(A) 0 - 2 /HPF [facility] Epithelial cells, squamous, ur 1-5 0 - 5 /HPF [facility] Bacteria, ur 2+(A) [facility] Mucous, ur Present(A) [facility] Urine 03/29/2024 4:34 PM PLASTER HELPER 03/29/2024 4:47 PM PLASTER HELPER us Alvino Feng MD LAB URINE ORDERABLES Final R esult Performing Organization Address City/State/[facility] Co de Phone Number [facility] Department [place] [address] * eGFR (03/29/2024 2:50 PM PLASTER HELPER) eGFR 75 >=60 mL/min/1. 73 m2 Comment: [...] last reviewed 2020. Blood 03/29/2024 2:50 PM PLASTER HELPER 03/29/2024 3:04 PM PLASTER HELPER us Alvino Feng MD LAB BLOOD ORDERABLES Final R esult DON [facility] Department [place] [address] * (ABNORMAL) Differential, auto (03/29/2024 2:50 PM PLASTER HELPER) Neutrophil abs 4.8 1.5 - 6.5 K/cumm Imm gran abs 0.0 0.0 - 0.1 K/cumm [facility] Lymphocyte abs 3.6(H) 0.8 - 3.3 K/cumm [facility] Monocyte abs 0.6 0.2 - 0.8 K/cumm [facility] Eosinophil abs 0.3 0.0 - 0.5 K/cumm [facility] Basophil abs 0.1 0.0 - 0.1 K/cumm [facility] Neutrophil pct 50.6 % [facility] Comment: Interpretive Data Percent cell count reference ranges are not reported, since discordance with absolute values may lead to misinterpretation of CBC data. Current Interpretive Data was last revised on 2017. Imm gran pct 0.3 % [facility] Comment: Interpretive Data Percent cell count reference ranges are not reported, since discordance with absolute values may lead to misinterpretation of CBC data. Current Interpretive Data was last revised on 2017. Lymphocyte pct 38.1 % [facility] Comment: Interpretive Data Percent cell count reference ranges are not reported, since discordance with absolute values may lead to misinterpretation of CBC data. Current Interpretive Data was last revised on 2017. Monocyte pct 6.7 % [facility] Comment: Interpretive Data Percent cell count reference ranges are not reported, since discordance with absolute values may lead to misinterpretation of CBC data. Current Interpretive Data was last revised on 2017. Eosinophil pct 3.2 % [facility] Comment: Interpretive Data Percent cell count reference ranges are not reported, since discordance with absolute values may lead to misinterpretation of CBC data. Current Interpretive Data was last revised on 2017. Basophil pct 1.1 % [facility] Comment: Interpretive Data Percent cell count reference ranges are not reported, since discordance with absolute values may lead to misinterpretation of CBC data. Current Interpretive Data was last revised on 2017. Blood 03/29/2024 2:50 PM PLASTER HELPER 03/29/2024 3:04 PM PLASTER HELPER Alvino eFng MD LAB BLOOD ORDERABLES Final R esult Performing Organization Address City/[facility]/ZIP Co de Phone Number [facility] [place] [address] * CBC with auto differential (03/29/2024 2:50 PM PLASTER HELPER) WBC 9.5 3.8 - 9.9 K/cumm Hgb 14.4 11.9 - 15.5 g/dL [facility] Hct 42.1 35.6 - 45.5 % [facility] Plt 269 150 - 400 K/cumm [facility] MPV 9.8 9.1 - 12.3 fL [facility] RBC 4.77 3.90 - 5.20 M/cumm [facility] MCV 88.3 81.3 - 96.4 fL [facility] MCH 30.2 27.1 - 33.3 pg [facility] MCHC 34.2 32.3 - 35.7 g/dL [facility] RDW CV 13.0 11.1 - 14.9 % [facility] RDW SD 42.4 35.7 - 48.1 fL [facility] NRBC abs 0.00 0.00 - 0.01 K/cumm [facility] Blood Venous blood specimen / Unknown 03/29/2024 2:50 PM PLASTER HELPER 03/29/2024 3:04 PM PLASTER HELPER us Alvino Feng MD LAB BLOOD ORDERABLES Final R esult [facility] Department [place] [address] * Lipase (03/29/2024 2:50 PM PLASTER HELPER) Pathologist [facility] [place] Lipase 25 10 - 99 Units/L Blood Venous blood specimen / Unknown 03/29/2024 2:50 PM PLASTER HELPER 03/29/2024 3:04 PM PLASTER HELPER us Alvino Feng MD LAB BLOOD ORDERABLES Final R esult [facility] Department [place] [address] * Comprehensive metabolic panel (03/29/2024 2:50 PM PLASTER HELPER) Pathologist [facility] [place] Sodium 141 135 - 145 mmol/L Potassium, pl 4.1 3.3 - 4.9 mmol/L [facility] Chloride 107 97 - 110 mmol/L [facility] CO2 27 22 - 32 mmol/L [facility] Anion gap 7 2 - 15 mmol/L [facility] BUN 15 6 - 25 mg/dL [facility] Creatinine 0.99 0.60 - 1.10 mg/dL [facility] Glucose 115 70 - 199 mg/dL [facility] Comment: Interpretive Data Fasting glucose >/= 126 [...] 2022. Calcium 9.5 8.5 - 10.3 mg/dL [facility] Bilirubin, total 0.2 0.1 - 1.2 mg/dL [facility] Protein, pl 6.8 6.5 - 8.5 g/dL [facility] Albumin 4.1 3.5 - 5.0 g/dL [facility] Alk phos 63 40 - 130 Units/L [facility] ALT 31 7 - 45 Units/L [facility] AST 33 10 - 45 Units/L [facility] Blood 03/29/2024 2:50 PM PLASTER HELPER 03/29/2024 3:04 PM PLASTER HELPER us Alvino Feng MD LAB BLOOD ORDERABLES Final R esult [facility] Department [place] [address] from Last 3 Months Insurance [facility] [employer] Advance Directives For more information, please contact: [phone] * Full Code (Latest Code Status on File) Date Activated Date Inactivated Comments 08/09/2023 10:54 AM 08/09/2023 4:33 PM * Full Code Date Activated Date Inactivated Comments 05/18/2023 12:36 AM 05/20/2023 6:57 PM * Full Code Date Activated Date Inactivated Comments 01/04/2022 11:40 PM 01/05/2022 10:09 PM Care Teams Architecture Internship Relationship Specialty [place] [address] [place] [address] PCP - General Internal Medicine 03/29/24 Barry Romo MD [address] [facility] [address] [place] [address] 01/03/22
--- OUTSIDE RECORDS SUMMARY | 2024-06-23 09:14 | XMS_ITS | Encounter Summary ---
Author Organization [facility] Address [address] [place] [address] Care Team Providers Care Supervisor Printing And Stamping Name Role Phone Yelena James MD Primary Care Provider [phone] Encounter Details Date Type Department Care Team (Late st Contact Info) Description 06/08/2024 Results Follow-Up [facility] [place] [address] [place] [address] Emma Houser, ANP [address] [facility] [address] [place] [address] HEMOGLOBIN A1C, MICROALBUMIN/CREATIN INE RATIO, RANDOM UR, URINALYSIS WITH REFLEX MICROSCOPIC, Additional followed-up results: 4 Social History Tobacco Use Types Packs/Day Years [...] on file documented as of this encounter Miscellaneous Notes * Result Encounter Note - Breana Baig - 06/08/2024 9:57 AM CDT Patient called back and results were relayed. She is scheduled for repeat labs in 3 months. * Result Encounter Note - Emma Houser ANP - 06/08/2024 8:39 AM CDT Contact patient regarding result. Cholesterol remains very high when not on medcations. Recommend trial of alternate statin drug in future when she is not attempting . Blood sugar remains prediabetic range. Thyroid level is slightly overactive. Likely a temporary issue. Recommend repeat TSH again 3 months. Ordered. documented in this encounter Plan of Treatment Upcoming Encounters Date Type Department Care Team (Late st Contact Info) Description 09/05/2024 8:00 AM CDT Procedure visit [facility] [place] [address] [place] [address] documented as of this encounter Visit Diagnoses Not on filedocumented in this encounter Care Teams Supervisor Printing And Stamping Relationship Specialty Start Date End Date Yelena James MD [address] [place] [address] PCP - General Internal Medicine 09/14/23 documented as of this encounter
--- OUTSIDE RECORDS SUMMARY | 2024-06-23 09:14 | XMS_ITS | Encounter Summary ---
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
== END 2024-06-23 09:01 | disposition home or self-care (01) ==
PROVIDERS: PCP Nurse Practitioner Adult Health; Visit Provider Nurse Practitioner Adult Health
DX: R07.9 Chest pain, unspecified (principal)
CPT/HCPCS: 93351

== ENCOUNTER 2025-01-01 18:33 | Emergency (ER) | payer OTHER, SELFPAY ==
--- NOTE | ~2025-01-01 | CT_ITS ---
EXAMINATION: CT soft tissue neck wo con DATE: 01/01/2025 21:14 INDICATION: Possible swallowed foreign body TECHNIQUE: Computed tomography (CT) of the neck was performed with 75 cc Omnipaque 350 intravenous contrast. The dose-length product was 499.63 mGy-cm. COMPARISON: None FINDINGS: No radiopaque foreign bodies identified in the GI tract or airway. Thyroid gland is unremarkable. Mucosal space within normal limits. Parapharyngeal spaces are symmetric. Lung apices are unremarkable. No acute osseous abnormality. No significant cervical lymphadenopathy. IMPRESSION: 1. No evidence for foreign body. Reviewed, dictated and finalized at location O. LIATE MARKETING COORDINATOR
--- NOTE | ~2025-01-01 | XR_ITS ---
EXAMINATION: XR chest 2V 01/01/2025 18:59 INDICATION: Swallowed tooth PROCEDURE: 2 view chest COMPARISON: 08/17/2022 FINDINGS: The lungs are clear. The cardiomediastinal silhouette is within normal limits. There are no pleural effusions. There is no pneumothorax suspected. IMPRESSION: 1: NO ACUTE CARDIOPULMONARY DISEASE. Reviewed, dictated and finalized at location O. AL WORK LECTURER
--- NOTE | ~2025-01-01 | XR_ITS ---
XR soft tissue neck 01/01/2025 18:59 Indication: Swallowed tooth. Procedure: 2 views of the neck soft tissues Comparison: No prior studies for comparison. Findings: No radiopaque foreign bodies identified. Soft tissues are within normal limits. Mild cervical spondylosis. No prevertebral soft tissue abnormality. No subglottic narrowing. Lung apices are unremarkable. Impression: 1: No radiopaque foreign bodies. Reviewed, dictated and finalized at location O. CAL STAFF MANAGER Impression: 1: No radiopaque foreign bodies.
--- OUTSIDE RECORDS SUMMARY | 2025-01-01 18:36 | XMS_ITS | Encounter Summary ---
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
--- OUTSIDE RECORDS SUMMARY | 2025-01-01 18:36 | XMS_ITS | Clinical Summary ---
Author Organization [facility] [employer] Address [address] [place] [address] Care Team Providers Care Cupola Charger Insulation Name Role Phone Yelena James MD Primary Care Provider [phone] Allergies Active Allergy Reactions Criticality Noted Date Comments Atorvastatin Muscle Pain Low 04/12/2024 Medications albuterol sulfate 90 mcg/Actuation inhaler Take 2 Puffs by inhalation every 6 hours as needed for Shortness of Breath. 8.5 Gram 2 2 Active triamcinolone acetonide (KENALOG) 0.1 % CreamIndications: Eczema, unspecified type Apply to affected area 2 times daily. 30 Gram 1 2 Active loratadine (CLARITIN) 10 mg tablet Take 10 mg by mouth daily. Active aspirin (ECOTRIN EC) 81 mg Tablet, Delayed Release (E.C.) Take 1 Tablet (81 mg) by mouth daily. 90 Tablet 3 Active fluticasone propionate (FLONASE) 50 mcg/spray [place], Suspension nasal inhaler Administer 2 Sprays in each nostril daily. 16 Gram 4 Active pantoprazole (PROTONIX) 40 mg Tablet, Delayed Release (E.C.)Indications :Other acute pancreatitis without infection or necrosis TAKE 1 TABLET DAILY 60 Tablet 5 5 Active DULoxetine (CYMBALTA) 30 mg Capsule, Delayed Release(E.C.)Leena cations:Irritabil ity Take 1 Capsule (30 mg) by mouth daily. 90 Capsule 5 Active lisinopriL (PRINIVIL) 10 mg tablet Take 1 Tablet (10 mg) by mouth daily. 90 Tablet 5 Active Active Problems Problem Noted Date [...] Anticardiolipin abs neg, LAC neg, FVL and [id number] negative Prediabetes 03/23/2023 Vitamin D deficiency 03/23/2023 [...] Irritability 09/20/2019 03/23/2023 RUQ abdominal pain 03/24/2019 Encounters Date Type Department Care Team Description 12/27/2024 External Device Data [facility] ABSTRACTION Provider, Abstract 12/26/2024 External Device Data [facility] ABSTRACTION Provider, Abstract 12/20/2024 External Device Data [facility]STRACTION Provider, Abstract 12/05/2024 External Device Data [facility]CTION Provider, Abstract 11/29/2024 10:40 AM CDT Procedure visit [facility] [place] [address] [place] [id number] Issue of repeat prescription for medication (Primary Dx) 11/28/2024 Refill [facility] [place] [address] [place] [address] Yelena James MD Irritability 11/21/2024 External Device Data [facility] ABSTRACTION Provider, Abstract 11/14/2024 External Device Data [facility] ABSTRACTION Provider, Abstract 10/31/2024 External Device Data [facility] ABSTRACTION Provider, Abstract 10/17/2024 External Device Data [facility] ABSTRACTION Provider, Abstract 10/17/2024 External Device Data [facility] ABSTRACTION Provider, Abstract 10/10/2024 External Device Data [facility]CTION Provider, Abstract from Last 3 Months Immunizations Immunization Administration Dates Next Due (ADACEL/BOOSTRIX)(10 YR UP) TDAP VACCINE, 0.5ML, IM 03/16/2023,03/01/2015 (PFIZER)(12 YR UP) COVID-19 VACCINE - EMERGENCY USE AUTHORIZATION, MRNA, [id number]) 30 MCG/0.3 ML IM SUSP 01/03/2022 (PNEUMOVAX [...] Sign Reading Time Taken Comments Blood Pressure 122/68 07/26/2024 10:26 AM CDT Pulse 75 07/26/2024 10:26 AM CDT Temperature 36.7 C (98.1 F) 07/26/2024 10:26 AM CDT Respiratory Rate 18 07/26/2024 10:26 AM CDT Oxygen Saturation 98% 07/26/2024 10:26 AM CDT Inhaled Oxygen Concentration - - Weight 108.9 kg (240 lb) 07/26/2024 10:26 AM CDT Height 167.6 cm (5' 6) 07/26/2024 10:26 AM CDT Body Mass Index 38.74 07/26/2024 10:26 AM CDT Plan of Treatment Health Maintenance Due Date Last Done Comments HEPATITIS B VACCINES (1 of 3 - 19+ 3-dose series) 2005 HPV/Cotest (21-29) 2007 HPV VACCINES (1 - 3-dose SCD M series) 2013 CERVICAL CANCER SCREENING 02/27/2016 HPV/Cotest (30-65) 02/27/2016 PAP SMEAR 02/27/2016 Preventative Visit- Commercial 03/01/2024 INFLUENZA VACCINE (#1) 2024 , 01/05/2022, 12/04/2020, Additional history exists COVID-19 Vaccine (2 - 2024-2 6 season) 2024 01/03/2022 Pre-Diabetes and Diabetes Screening 06/06/2027 06/05/2024, 03/18/2023, 11/11/2022, Additional history exists DTAP/TDAP/TD VACCINES (3 - T d or Tdap) 03/16/2033 03/16/2023, 03/01/2015 Procedures Procedure Name Priority Date/Time Associated Diagnosis Comments HEMOGLOBIN A1C Routine 06/05/2024 10:15 AM CDT Prediabetes from Last 3 Months or Most Recently Relevant to Health Maintenance Results * (ABNORMAL) HEMOGLOBIN A1C (06/05/2024 10:15 AM CDT) HEMOGLOBIN A1C 6.2(H) <5.7 % of total Hgb [facility] Comment: For someone without known diabetes, [...] ESTIMATED AVERAGE GLUCOSE (MG/DL) 131 mg/dL [facility] ESTIMATED AVERAGE GLUCOSE (MMOL/L) 7.3 mmol/L [facility] Comment: Test Performed at: [facility] [id number] [id number] Simba Turcios MD Blood 06/05/2024 10:1 5 AM CDT 06/06/2024 4:21 AM CDT us Emma Duran Mik ANP CHEMISTRY ORDERABLES Final R esult [facility] [phone] [facility] [address] [address] [phone] from Last 3 Months or Most Recently Relevant to Health Maintenance [place] [id number] Care Teams Cupola Charger Insulation Relationship Specialty Start Date End Date Yelena James MD [address] [place] [address] [place] [address] PCP - General Internal Medicine 09/14/23
--- OUTSIDE RECORDS SUMMARY | 2025-01-01 18:36 | XMS_ITS | Clinical Summary ---
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 Gender Identity Not on file Sexual Orientation [...] 11:50 AM CDT Height 167.6 cm (5' 6) 12/20/2023 4:10 PM CDT Body Mass Index 39.85 12/20/2023 4:10 PM CDT Plan of Treatment Health Maintenance Due Date Last Done Comments Cervical Cancer Screening 1986 Depression Screening 1986 Hepatitis C Screening 1986 Varicella Vaccines (1 of 2 - 13+ 2-dose series) 1999 Hepatitis B Screening 02/27/2004 Regular Well Visit/Exam 18-64 02/27/2004 HPV Vaccines (1 - 3-dose SCD M series) 2013 Pneumococcal vaccine <65 (2 of 2 - PCV) 05/04/2020 05/05/2019 Covid-19 Vaccine (5 - 2024-2 6 season) 2024 01/03/2022, 01/03/2022, 07/19/2020, Additional history exists Influenza Vaccine (#1) 2024 , 12/04/2020, 11/29/2019, Additional history exists DTaP/Tdap/Td Vaccine (3 - Td or Tdap) 03/16/2033 03/16/2023, 03/01/2015 Insurance [facility] [employer] [employer] ACCESS Advance Directives For more information, please contact: [phone] * Full Code (Latest Code Status on File) Date Activated Date Inactivated Comments 08/09/2023 10:54 AM 08/09/2023 4:33 PM * Full Code Date Activated Date Inactivated Comments 05/18/2023 12:36 AM 05/20/2023 6:57 PM * Full Code Date Activated Date Inactivated Comments 01/04/2022 11:40 PM 01/05/2022 10:09 PM Care Teams Diagnostic Medical Sonographer Relationship Specialty Start Date End Date Yelena James MD [address] [place] [address] PCP - General Internal Medicine 03/29/24 Barry Romo MD [address] [place] [address] 01/03/22
[2025-01-01 18:49] VITALS: BP 141/110; PULSE 82; RESP 18; TEMP 36.6; O2SAT 98
--- NOTE | 2025-01-01 19:52 | ED.SKABFB ---
HPI - Skin/Abscess/Foreign Bdy General Chief complaint: Skin/Abscess/Foreign Body Stated complaint: States swallowed tooth today with pain in chest Time Seen by Provider: 01/01/25 19:33 Source: patient Mode of arrival: ambulatory Limitations: no limitations History of Present Illness HPI narrative: This is a 39-year-old female with history of hypertension, hyperlipidemia, GERD, anxiety who presents the ED for possible swallowed versus aspirated foreign body. Patient states that she was sucking on a lollipop and swallowed a piece of it when she noticed that she swallowed part of her partial denture. She has done this many times before but states that this time she felt something is stuck in her throat. She tried to eat dinner after this thinking it might push down but she continues to have this sensation prompting her to come to the ED. Denies shortness of breath, nausea vomiting. Does report some neck pain at this time. Related Data Home Medications ?Medication ?Instructions ?Recorded ?Confirmed ?Last Taken ?Type duloxetine 20 mg capsule,delayed 20 mg PO DAILY 06/05/21 01/10/24 03/26/23 History release aspirin 81 mg tablet,delayed 81 mg PO DAILY 05/27/22 01/10/24 03/26/23 History release atorvastatin 80 mg tablet (Lipitor) 80 mg PO DAILY 05/27/22 01/10/24 03/26/23 History cyclobenzaprine 10 mg tablet 10 mg PO PRN PRN Tension Headache 05/27/22 01/10/24 Unknown History lisinopril 20 mg tablet 10 mg PO DAILY 05/27/22 01/10/24 03/26/23 History loratadine 10 mg tablet (Claritin) 10 mg PO DAILY 07/01/22 01/10/24 03/26/23 History Allergies Allergy/AdvReac Type Severity Reaction Status Date / Time No Known Allergies Allergy Verified 01/10/24 14:58 Review of Systems Review of Systems: Gen.: Denies fevers or chills Eyes: Denies eye pain or visual change ENT: Denies congestion Respiratory: Denies shortness of breath or cough CV: Denies chest pain or palpitations GI: Denies abdominal pain nausea, emesis or diarrhea denies burning, urgency, frequency or hematuria Musculoskeletal: Denies back pain or muscle pain Neuro: Denies numbness, tingling, weakness or focal weakness Skin: Denies rash Except as documented, all other systems reviewed and negative [facility] Past Medical History Medical History Depression with anxiety Psoriasis Gastroesophageal reflux disease Partial traumatic amputation of great toe Hyperlipidemia Hypertension Stroke (12/2021) Arthritis Asthma Surgical History Surgical History History of tonsillectomy and adenoidectomy History of hysteroscopy (06/2022) D&C and benign polypectomy. Family History Family History Mother Hypertension Sibling Hypertension Social History Social History Social History: Surrogate medical decision maker: Sasha Ngo, mother. Code status: Full code. Smoking packs per day: 1 Smoking cigarettes per day: 20.0 Years smoked: 20 Smoking pack-years: 20.00 Smoking status: Current every day smoker Alcohol intake: current Alcohol use details: Rare alcohol use in moderation. Substance use: current Substance use type: marijuana Do You Feel Safe in your Home?: Yes Lack of Transportation: No Lack of Food: Never True Current Housing: I Have Housing Concerned About Future Housing: No Difficulty Paying Gas/Electric Bills: Decline to Answer Difficulty Paying for Meds: No Currently Unemployed: No Education: High School Diploma/GED Difficulty w/ Childcare or Family Care: No Living arrangements: with friend(s) Additional living arrangements comments: Lives with significant other. 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 Spiritual care concerns: No Exam Narrative: APPEARANCE: No acute distress, nontoxic, resting in bed HEENT: Normocephalic, atraumatic, OMM RESPIRATORY: No respiratory distress. Lungs clear to auscultation breathing bilaterally. No stridor. CARDIOVASCULAR: Appears well perfused ABDOMINAL: Nondistended MUSCULOSKELETAl: Moves all extremities. No obvious deformities NEURO: Awake and alert. SKIN:: Warm, dry. No rashes lesions or abrasions PSYCHIATRIC: Normal affect/mood, Course Vital Signs Vital signs: Vital Signs Temperature 97.9 F 01/01/25 18:49 Pulse Rate 82 01/01/25 18:49 Respiratory Rate 18 01/01/25 18:49 Blood Pressure 141/110 H 01/01/25 18:49 Pulse Oximetry 98 01/01/25 18:49 Oxygen Delivery Room Air 01/01/25 18:49 Temperature 97.9 F 01/01/25 18:49 Pulse Rate 82 01/01/25 18:49 Respiratory Rate 18 01/01/25 18:49 Blood Pressure 141/110 H 01/01/25 18:49 Pulse Oximetry 98 01/01/25 18:49 Oxygen Delivery Room Air 01/01/25 18:49 MDM - Skin/Abscess/Foreign Bdy MDM Narrative Medical decision making narrative: 39-year-old female Presenting for possible ingested foreign body. On initial evaluation patient was in no acute distress afebrile, hemodynamic stable. Differentials include but are not limited to: Ingested foreign body, aspiration, globus sensation, esophageal laceration Notable exam findings: Heart and lungs clear, no stridor Notable imaging findings: X-ray chest and soft tissues of the neck showed no evidence of foreign body, however, patient potentially swallowed a fake tooth which is likely not radio opaque so CT soft tissues in the neck was obtained and showed no evidence of foreign body. Patient was deemed appropriate for discharge at this time. She was educated on soft diet to a healing. Patient was advised follow-up with their PCP in the next week for re-evaluation. Patient was agreeable to this plan. Given strict return precautions. Medical Records Attestation: I reviewed the patient's medical records. Imaging Data Attestation: I personally reviewed and interpreted this imaging study as follows: My impression: Chest x-ray: No visualized foreign body Soft tissue neck x-ray: No visualized foreign body Soft tissue neck CT: No visualized foreign body Radiologist's impression: Impressions Chest X-Ray 01/01/25 19:01 IMPRESSION: 1: NO ACUTE CARDIOPULMONARY DISEASE. Soft Tissue Neck X-Ray 01/01/25 19:20 Impression: 1: No radiopaque foreign bodies. Soft Tissue Neck CT 01/01/25 21:20 IMPRESSION: 1. No evidence for foreign body. Discharge Plan Discharge Clinical Impression: Foreign body ingestion Qualifiers: Encounter type: initial encounter Qualified Code(s): T18.9XXA - Foreign body of alimentary tract, part unspecified, initial encounter Patient Disposition: Home Condition: Stable Instructions: Antibiotic Form, Foreign Body Ingestion (ED) Additional Instructions: I would recommend a soft diet for the next couple days and to avoid spicy and acidic foods. Follow up with the PCP in the next week for re-evaluation if needed. Return to the ED for any new or worsening symptoms. Patient Language: Georgian Prescriptions: No Action aspirin 81 mg tablet,delayed release (DR/EC) 81 mg PO DAILY cyclobenzaprine 10 mg tablet 10 mg PO PRN PRN (Reason: Tension Headache) atorvastatin [Lipitor] 80 mg tablet 80 mg PO DAILY lisinopril 20 mg tablet 10 mg PO DAILY duloxetine 20 mg capsule,delayed release(DR/EC) 20 mg PO DAILY loratadine [Claritin] 10 mg Tablet 10 mg PO DAILY pantoprazole 40 mg tablet,delayed release (DR/EC) 40 mg PO QAM 28 Days Qty: 28 0RF Follow-up/Referrals: Mik,Emma Velazquez APRN [Primary Care Provider, Unknown]
--- OUTSIDE RECORDS SUMMARY | 2025-01-01 19:52 | XMS_ITS | Clinical Summary ---
Author Organization 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 Gender Identity Not on file Sexual Orientation [...] Td or Tdap) 03/16/2033 03/16/2023, 03/01/2015 Insurance [facility] [employer] ACCESS Advance Directives For more information, please contact: [phone] * Full Code (Latest Code Status on File) Date Activated Date Inactivated Comments 08/09/2023 10:54 AM 08/09/2023 4:33 PM * Full Code Date Activated Date Inactivated Comments 05/18/2023 12:36 AM 05/20/2023 6:57 PM * Full Code Date Activated Date Inactivated Comments 01/04/2022 11:40 PM 01/05/2022 10:09 PM Care Teams Jailer Chief Relationship Specialty Start Date End Date Yelena James MD [address] [place] [address] PCP - General Internal Medicine 03/29/24 Barry Romo MD [address] [place] [address] 01/03/22
--- OUTSIDE RECORDS SUMMARY | 2025-01-01 19:52 | XMS_ITS | Encounter Summary ---
Author Organization [facility] Address [address] [address] Care Team Providers Care Word Processor Technician Name Role Phone Barry Romo MD Primary Care Provider Unknown, Notinfile Primary Care Provider Unavail able Barry Romo MD Unavailable [phone] Emma Houser NP Primary Care Provider [phone] Yelena James MD Primary Care Provider [phone] Encounter Details Date Type Department Care Team (Late st Contact Info) Description 07/22/2016 Orders Only [facility] ProviderNora MD [address] [place] [id number] Social History Tobacco Use Types Packs/Day Years Used Date Smoking Tobacco: Heavy Smoker Comments:Smoking History Pac ks/day: 1 Packs Alcohol Use Standard Drinks/Week Comments Yes 0 (1 standard drink = 0.6 oz pur e alcohol) Comments Unknown Sex and Gender Information Value Date Recorded Sex Assigned at Not on file 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
--- OUTSIDE RECORDS SUMMARY | 2025-01-01 19:52 | XMS_ITS | Clinical Summary ---
Author Organization [facility] [employer] Address [address] [place] [address] Care Team Providers Care Airline Captain Name Role Phone Yelena James MD Primary Care Provider [phone] Allergies Active Allergy Reactions Criticality Noted Date [...] 3 Active fluticasone propionate (FLONASE) 50 mcg/spray [place], Suspension nasal inhaler Administer 2 Sprays in [...] Anticardiolipin abs neg, LAC neg, FVL and [id number] negative Prediabetes 03/23/2023 Vitamin D deficiency 03/23/2023 [...] Abstract 11/29/2024 10:40 AM CDT Procedure visit [facility] [place] [address] [id number] Issue of repeat prescription for medication (Primary Dx) 11/28/2024 Refill [facility] [place] [address] [place] [place] [address] Yelena James MD Irritability 11/21/2024 External Device [...] COVID-19 VACCINE - EMERGENCY USE AUTHORIZATION, MRNA, [id number](PF) 30 MCG/0.3 ML IM SUSP 01/03/2022 (PNEUMOVAX [...] 6.2(H) <5.7 % of total Hgb [facility] Comment: For someone without known diabetes, [...] [facility] Comment: Test Performed at: [facility] [address] [id number] Simba Turcios MD Blood 06/05/2024 10:1 5 AM CDT 06/06/2024 4:21 AM CDT us Emma Duran Mik ANP CHEMISTRY ORDERABLES Final R esult [facility] [phone] [facility] [address] [phone] from Last 3 Months or Most Recently Relevant to Health Maintenance [place] [id number] Care Teams Airline Captain Relationship Specialty Start Date End Date Yelena James MD [address] [place] [address] [place] [address] PCP - General Internal Medicine 09/14/23
--- OUTSIDE RECORDS SUMMARY | 2025-01-01 19:52 | XMS_ITS | Encounter Summary ---
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 Gender Identity Not on file Sexual Orientation [...] documented as of this encounter Care Teams Pcb Design Engineer Relationship Specialty Start Date End Date Unknown, Notinfile PCP - General 01/03/22 07/07/23 Emma Houser NP [address] [facility] [address] [place] [address] PCP - General Hull Outfit Supervisor 07/08/23 03/28/24 Yelena James MD [address] [facility] [address] [place] [address] PCP - General Internal Medicine 03/29/24 Barry Romo MD [address] [facility] [address] [place] [address] 01/03/22 documented as of this encounter
[2025-01-01 22:23] VITALS: BP 134/82; PULSE 74; RESP 16; O2SAT 98
== END 2025-01-01 22:25 | disposition home or self-care (01) ==
PROVIDERS: Emergency Provider Student in an Organized Health Care Education/Training Program; PCP Nurse Practitioner Adult Health
DX: T18.9XXA Foreign body of alimentary tract, part unspecified, initial encounter (principal); F17.210 Nicotine dependence, cigarettes, uncomplicated; F41.9 Anxiety disorder, unspecified; F32.A Depression, unspecified; K21.9 Gastro-esophageal reflux disease without esophagitis; E78.5 Hyperlipidemia, unspecified; I10 Essential (primary) hypertension; M19.90 Unspecified osteoarthritis, unspecified site; J45.909 Unspecified asthma, uncomplicated; Z86.73 Personal history of transient ischemic attack (TIA), and cerebral infarction without residual deficits; W44.8XXA Other foreign body entering into or through a natural orifice, initial encounter
CPT/HCPCS: 70360; 70490; 71046; 99284